=== PATIENT | female | born 1930 | race Caucasian/White ===

== ENCOUNTER → 2016-04-12 | Outpatient (CLI) | payer OTHER | LOC: MMPC 10:00 | PROVIDERS: ATTEND Podiatrist Foot & Ankle Surgery | DX: M79.672 Pain in left foot (principal); M79.671 Pain in right foot; L84 Corns and callosities; M20.12 Hallux valgus (acquired), left foot; E11.40 Type 2 diabetes mellitus with diabetic neuropathy, unspecified; D16.31 Benign neoplasm of short bones of right lower limb; D16.32 Benign neoplasm of short bones of left lower limb; M20.11 Hallux valgus (acquired), right foot | CPT/HCPCS: 11057 ×2; G0463 ==

== ENCOUNTER → 2016-05-10 | Outpatient (CLI) | payer OTHER | LOC: MMPC 10:00 | PROVIDERS: ATTEND Podiatrist Foot & Ankle Surgery | DX: M79.672 Pain in left foot (principal); M79.671 Pain in right foot; L84 Corns and callosities; M20.12 Hallux valgus (acquired), left foot; E11.40 Type 2 diabetes mellitus with diabetic neuropathy, unspecified; D16.31 Benign neoplasm of short bones of right lower limb; M24.574 Contracture, right foot; M20.41 Other hammer toe(s) (acquired), right foot; M20.11 Hallux valgus (acquired), right foot; M20.42 Other hammer toe(s) (acquired), left foot; D16.32 Benign neoplasm of short bones of left lower limb; M24.575 Contracture, left foot | CPT/HCPCS: 11056 ==

== ENCOUNTER → 2016-06-07 | Outpatient (CLI) | payer OTHER | LOC: MMPC 10:00 | PROVIDERS: ATTEND Podiatrist Foot & Ankle Surgery | DX: M79.671 Pain in right foot (principal); M79.672 Pain in left foot; L84 Corns and callosities; E11.40 Type 2 diabetes mellitus with diabetic neuropathy, unspecified | CPT/HCPCS: 11056 ×2; G0463 ==

== ENCOUNTER → 2016-07-05 | Outpatient (CLI) | payer OTHER | LOC: MMPC 10:00 | PROVIDERS: ATTEND Podiatrist Foot & Ankle Surgery | DX: M79.671 Pain in right foot (principal); M79.672 Pain in left foot; L84 Corns and callosities; E11.40 Type 2 diabetes mellitus with diabetic neuropathy, unspecified; M20.11 Hallux valgus (acquired), right foot; L60.3 Nail dystrophy; M20.41 Other hammer toe(s) (acquired), right foot; Q66.7 Congenital pes cavus; M20.12 Hallux valgus (acquired), left foot; M20.42 Other hammer toe(s) (acquired), left foot; I73.9 Peripheral vascular disease, unspecified | CPT/HCPCS: 11056 ×2; 11721 ×2; G0463 ==

== ENCOUNTER → 2016-08-02 | Outpatient (CLI) | payer OTHER | LOC: MMPC 10:00 | PROVIDERS: ATTEND Podiatrist Foot & Ankle Surgery | DX: M79.671 Pain in right foot (principal); M79.672 Pain in left foot; L84 Corns and callosities; L97.512 Non-pressure chronic ulcer of other part of right foot with fat layer exposed; E11.40 Type 2 diabetes mellitus with diabetic neuropathy, unspecified; M20.41 Other hammer toe(s) (acquired), right foot; L60.3 Nail dystrophy; M24.571 Contracture, right ankle; M20.42 Other hammer toe(s) (acquired), left foot; M24.572 Contracture, left ankle | CPT/HCPCS: 11056 ×2; G0463 ==

== ENCOUNTER → 2016-09-13 | Outpatient (CLI) | payer OTHER ==
--- NOTE | 2016-09-13 10:22 | DI ---
XR FOOT COMPLETE MIN 3VW WB,09/13/2016 9:08 AM: Clinical History: Ulcer of the right second toe. Previous Exam: September 22, 2015 Findings: 3 views of the right foot are obtained, and demonstrate some irregular soft tissue of the distal seco nd toe. There is irregularity of the distal second tuft. There is soft tissue swelling as well. There is diffuse osteopenia. Degenerative changes are noted of the tarsometatarsal joints. Impression: 1. Soft tissue irregularity of the distal second digit as well as irregularity of the distal tuft of the second digit. This is worrisome for involvement of the distal second tuft. 2. Degenerative changes of the tarsometatarsal joints.
== END ==
LOC: MOB RAD 09:09
PROVIDERS: ATTEND Podiatrist Foot & Ankle Surgery
DX: E11.621 Type 2 diabetes mellitus with foot ulcer (principal); E11.40 Type 2 diabetes mellitus with diabetic neuropathy, unspecified; I73.9 Peripheral vascular disease, unspecified; L84 Corns and callosities; M20.41 Other hammer toe(s) (acquired), right foot; M20.42 Other hammer toe(s) (acquired), left foot; M79.671 Pain in right foot; L03.031 Cellulitis of right toe; L97.512 Non-pressure chronic ulcer of other part of right foot with fat layer exposed
CPT/HCPCS: 73630; G0463

== ENCOUNTER 2016-09-14 06:06 | Day surgery (SDC) | payer OTHER ==
[~2016-09-14 06:06] MED LIST: Clindamycin 900mg (Premix) 50 ML IV ONE; LIDOCAINE W/ SODIUM BICARB 0.5 ML SYR ONE; Lactated Ringers 1,000 ML PRIMARY IV ONE
[2016-09-14] MEDS ORDERED: LIDOCAINE 2% 20 MG/ML - 20 ML VIAL ONE (07:02)
[2016-09-14] MEDS ORDERED: BUPivacaine Inj 0.5% PF (5mg/ml) 10ml vial ONE (07:02)
[2016-09-14] MEDS ORDERED: NORMAL SALINE 10 ML SYRINGE FLUSH IVP PRN (08:15)
--- NOTE | 2016-09-14 08:27 | GEN.OPNOTE ---
Operative Report Surgeon: Dani Umana DPM Anesthesia Type: Local, MAC Anesthesia Provider: Cachorro Tamayo CRNA Surgery Date: 09/14/16 Preoperative Diagnosis: 1. Right 2nd toe ulceration of tip. 2. Right 2nd toe distal phalanx in mallet toe position. 3. Right 2nd toe pain. Postoperative Diagnosis: 1. Right 2nd toe ulceration of tip. 2. Right 2nd toe distal phalanx in mallet toe position. 3. Right 2nd toe pain. Procedure: 1. Right 2nd toe distal phalangectomy. Estimated Blood Loss (mL): 3 (a Silvio drain was applied to the base of the second toe for approximately 32 minutes.) Fluids: 900 mL lactated Ringer's. Clindamycin 900mg IV. Complications: None Findings at Surgery: Ulcer of the tip of the toe. Some necrosis of fat deep to the ulceration. Indications for the Procedure: Right 2nd toe pain. Description of Procedure: The patient was brought to the operating room and placed in the supine position. Monitored anesthesia care was provided. The foot was prepped and draped in the usual sterile fashion. A timeout was performed. A digital injection was performed with half percent Marcaine +1% lidocaine plain. The toe was then extended with a [place] drain which was then left on the base the toe as a digital tourniquet. The ulcer is distal the tip and slightly plantarward. It was determined the best excision was a football Excision including the nail and nail matrix in a dorsal plantar direction. This ellipse was carried deep to the distal phalanx. And the distal phalanx was carefully excised and removed at the distal interphalangeal joint. The ulcer distal phalanx was then cemented in toto to pathology. Next culture and sensitivities were taken deep. The wound was then copiously irrigated. Some necrosis of the plantar toe pad fat was noted and this was excised as well. The middle phalanx head was noted to be prominent with the condyles and so a bone rongeur was reduced remove the condyles and cartilage. Wound was irrigated. The wound was then modified to remove redundant tissues. The goal was To maintain as much of the plantar toe pad as possible for further protection. The extensor to flexor tendons were then sutured with 4-0 Vicryl. And then the flap was closed with 3- 0 nylon. The [place]te drain was then removed from the base the toe. Gentle compression was used and the toe was given 5 minutes or so until the bleeding was well-controlled. It was noted the patient did have good capillary return to the distal toe. A dressing was applied utilizing Xeroform, gauze, Coban for both a an the foot to hold the dressing on the toe. Ordella was then returned to recovery.
[2016-09-14] MEDS ORDERED: KETOROLAC 30 MG/1 ML VIAL ONE (08:56)
--- NOTE | 2016-09-14 09:08 | DI ---
XR FOOT COMPLETE MIN 3VW,09/14/2016 8:15 AM: Clinical History: Right second toe ulcer Previous Exam: September 13, 2016 Findings: 3 views of the right foot are obtained, and demonstrate diffuse osteopenia. There are degenerative ch anges noted involving the tarsometatarsal joints. There is enthesopathy noted at the insertion of the plantar fascia. Postsurgical changes are seen consistent with an amputation of the distal second phalanx. There is so me soft tissue swelling. Impression: Postsurgical changes consistent with right second distal phalangeal amputation.
[2016-09-14 13:24] VITALS: TEMP 97.7
[2016-09-14 13:36] VITALS: RESP 16
== END 2016-09-14 09:13 | disposition home or self-care (01) ==
LOC: SDSC 06:06
PROVIDERS: ATTEND Podiatrist Foot & Ankle Surgery
DX: L97.519 Non-pressure chronic ulcer of other part of right foot with unspecified severity (principal); M79.671 Pain in right foot; E11.40 Type 2 diabetes mellitus with diabetic neuropathy, unspecified; I73.9 Peripheral vascular disease, unspecified
CPT/HCPCS: 28825; 73630; 87070; 87075; 87205; J1885; J2704; J2001; J3490; J7120

== ENCOUNTER → 2016-09-20 | Outpatient (CLI) | payer OTHER | LOC: MMPC 10:00 | PROVIDERS: ATTEND Podiatrist Foot & Ankle Surgery | DX: Z89.421 Acquired absence of other right toe(s) (principal) ==

== ENCOUNTER → 2016-10-04 | Outpatient (CLI) | payer OTHER | LOC: MMPC 10:00 | PROVIDERS: ATTEND Podiatrist Foot & Ankle Surgery | DX: M79.672 Pain in left foot (principal); R26.2 Difficulty in walking, not elsewhere classified; L84 Corns and callosities; M21.272 Flexion deformity, left ankle and toes; E11.9 Type 2 diabetes mellitus without complications | CPT/HCPCS: 11055 ×2; G0463 ==

== ENCOUNTER → 2016-10-18 | Outpatient (CLI) | payer OTHER | LOC: MMPC 10:00 | PROVIDERS: ATTEND Podiatrist Foot & Ankle Surgery | DX: Z89.421 Acquired absence of other right toe(s) (principal) ==

== ENCOUNTER 2017-01-26 17:51 | Observation (INO) ==
[2017-01-26] MEDS ORDERED: NORMAL SALINE 10 ML SYRINGE FLUSH IVP PRN ×2 (18:22→21:12)
[2017-01-26] MEDS ORDERED: Sodium Chloride 0.9% 1,000 ML PRIMARY IV ONE (18:22)
[2017-01-26 18:32] LABS: BASOPHILS # (AUTO) 0.01 10*3/UL; BASOPHILS % (AUTO) 0.2 % (0-1); EOSINOPHILS # (AUTO) 0.19 10*3/UL; EOSINOPHILS % (AUTO) 4.1 % (0-8); Hematocrit [HCT] 40.8 % (37.0-47.0); Hemoglobin [HGB] 13.5 g/dL (12.0-16.0); LYMPHOCYTES # (AUTO) 1.06 10*3/uL; MEAN CORPUSCULAR HEMOGLOBIN 30.5 PG (27-31); MEAN CORPUSCULAR HGB CONC 33.1 g/dL (33-37); MEAN CORPUSCULAR VOLUME 92.1 FL (81-99); MEAN PLATELET VOLUME 10.4 FL (7.4-12.2); MONOCYTES # (AUTO) 0.49 10*3/UL (0.3-0.8); MONOCYTES % (AUTO) 10.6 % (5-15); NEUTROPHILS # (AUTO) 2.87 10*3/UL; RED BLOOD COUNT 4.43 10^6/uL (4.20-5.40)
[2017-01-26 18:33] LABS: PLATELET MORPHOLOGY COMMENT NORMAL MORPHOLOGY (NORM); RBC MORPHOLOGY COMMENT NORMAL MORPHOLOGY (NORM); WBC MORPHOLOGY COMMENT NORMAL MORPHOLOGY (NORM)
[2017-01-26 18:39] LABS: BLOOD UREA NITROGEN 21 mg/dL (7-22); SERUM ALBUMIN 4.3 g/dL (3.5-4.8)
[2017-01-26 18:48] LABS: BILIRUBIN,URINE NEGATIVE (NEG); CLARITY,URINE CLEAR (CLEAR); COLOR,URINE YELLOW; GLUCOSE, URINE (UA) NEGATIVE (NEG); NITRATE,URINE NEGATIVE (NEG); OCCULT BLOOD,URINE LARGE (NEG); PROTEIN,URINE NEGATIVE (NEG); UROBILINOGEN,URINE 0.2 mg/dL (0.2)
[2017-01-26 18:49] LABS: VENOUS PH 7.36 (7.32-7.42)
[2017-01-26 18:55] LABS: URINE SAMPLE TYPE CATH SPECIMEN
[2017-01-26 18:56] LABS: BACTERIA,URINE RARE; SQUAMOUS EPITHELIAL CELL,UR RARE
--- NOTE | 2017-01-26 20:05 | DI ---
EXAM: CT Head Without Intravenous Contrast CLINICAL HISTORY: Dizziness and headache. TECHNIQUE: Axial computed tomography images of the head/brain without intravenous contrast. COMPARISON: No relevant prior studies available. FINDINGS: Brain: No acute intracranial hemorrhage. No evidence of acute territorial infarct. No mass effect or midline shift. Mild atrophy is present, appropriate for age. Scattered white matter hypoattenuation is nonspecific although probably related to chronic small vessel ischemic disease. Ventricles: Unremarkable for age. No ventriculomegaly. Bones/joints: Unremarkable. No acute fracture. Soft tissues: Unremarkable. Sinuses: Unremarkable as visualized. No acute sinusitis. Mastoid air cells: Unremarkable as visualized. No mastoid effusion. IMPRESSION: 1. No evidence of acute territorial infarct, acute intracranial hemorrhage, or other acute intracranial abnormality. 2. Atrophy and chronic small vessel ischemic disease. 3. Paranasal sinuses and mastoid air cells are clear.
--- NOTE | 2017-01-26 20:09 | DI ---
EXAM: XR Chest, 2 Views CLINICAL HISTORY: Confusion, cough. TECHNIQUE: Frontal and lateral views of the chest. COMPARISON: CXR dated 09/22/2015. FINDINGS: Lungs: Hyperinflated lungs suggestive of COPD, stable. No focal consolidation or evidence of pulmonary edema. Pleural space: No significant pleural effusion or pneumothorax. Heart: Mildly prominent cardiac silhouette size, stable. Stable cardiac pacemaker. Mediastinum: No mediastinal widening. Atherosclerosis at the aortic arch. Bones/joints: Osseous degenerative changes. IMPRESSION: 1. No radiographic evidence of acute cardiopulmonary process. 2. Stable cardiac silhouette size and cardiac pacemaker.
--- NOTE | 2017-01-26 20:42 | PDOC ---
General Adult HPI - General Chief Complaint: Syncope / Near-Syncope Stated Complaint: dizzy Date Seen by Provider: 01/26/17 Time Seen by Provider: 17:55 Source: POSITIVE: Patient, Other (Son, [id number], daughter) Exam Limitations: POSITIVE: Clinical condition Nurse's Notes Reviewed & Considered: Yes - History of Present Illness Initial Comment: The patient is an 86-year-old female who is brought to the emergency room by her son. Patient lives alone at the [facility]. The patient's daughter-in- law or son checks on the patient twice a day. According to son and daughter-in- law, the patient seemed in her normal state of health when they checked on her this morning. When they checked on the patient around 1700, however, the patient was "very weak ". She reportedly had an unsteady gait" almost felt ". The patient complained of being "dizzy ". Patient has had no known falls or trauma. No known fevers. Son reports that the patient has had some increased "coughing and hacking "lately. The son does report that the patient has had progressive "memory problems "over the past several months. Patient has a history of type II diabetes mellitus. 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 Patient is also had an aortic aneurysm repair. Status post hysterectomy and appendectomy. Have you received a tetanus shot in the past 10 years?: Yes Body Location Affected: REPORTS: Other ("Weakness, confusion, dizziness ") Duration: <24 hours Severity: Moderate Quality: REPORTS: Other (Patient states she has had some headaches recently, but none now) Context: REPORTS: Coughing, Near Fall Modifying Factors: improves with: Nothing, Walking (Gait very unsteady according to son) Similar Symptoms Previously: No Recent Care Received: REPORTS: Denies Any Prior Injuries Related to Current Complaint?: No - Patient Home Medications Home Medications: Home Medications Latanoprost [Xalatan] 1 drp OP DAILY #3 bottle 10/15/13 Ibuprofen [Motrin Ib] 200 mg PO Q4-6H #30 tab 08/23/14 Clotrim Antifungal 1 applic TOPICAL BID #1 tube 03/07/15 Urea 236.6 ml TOPICAL QD #1 bottle 01/05/16 Amlodipine Besylate 5 mg PO DAILY #90 tab 07/30/16 Carvedilol 6.25 mg PO BID #180 tab 07/30/16 Glipizide [Glipizide ER] 1 tab PO BID #180 tab 07/30/16 Potassium Chloride [Klor-Con 10] 10 meq PO DAILY #90 tab 07/30/16 Atorvastatin Calcium [Lipitor] 20 mg PO DAILY #90 tab 10/29/16 Quinapril HCl 20 mg PO DAILY #90 tab 10/29/16 - Patient Allergies Allergies/Adverse Reactions: Allergies 3 Allergy/AdvReac Type Severity Reaction Status Date / Time Penicillins Allergy Intermediate rash on Verified 12/27/16 11:35 legs aspirin Allergy VOMITING Verified 12/27/16 11:35 captopril AdvReac Intermediate diarrhea Verified 12/27/16 11:35 hydrochlorothiazide AdvReac Intermediate diarrhea Verified 12/27/16 11:35 indapamide AdvReac Intermediate feel Verified 12/27/16 11:35 terrible hydrocodone AdvReac NOT Verified 12/27/16 11:35 APPLICABLE Past Medical History - heen HEENT History: Glaucoma, Dental Disorders, Dentures/Partials Cardiovascular History: Hypertension, Pacemaker, Aneurysm, Other (please comment ) Additional Cardiovasular History: had aortic aneurysm repair, pacemaker Respiratory History: Denies History Gastrointestinal History: Irritable Bowel Syndrome, Peptic Ulcer Disease Additional Gastrointestinal History: Appendectomy Genitourinary History: Denies History Endocrine History: Type 2 Diabetes (oral) Musculoskeletal History: Other (please comment) Prosthesis or Implant: No Additional Musculoskeletal History: CHRONIC BILAT FOOT PAIN, neuropathy in legs/ feet Neurological History: Dementia Blood Disorders: Denies History Psychiatric History: Denies History History of Sexually Transmitted Diseases: No Female Reproductive History: Hysterectomy Cancer History: Skin Cancer Treatment / Date(s) of Treatment: FACE In Past Year Been Physically Harmed or Verbally Threatened: No History of MDRO: No History of Other Communicable Diseases: No Tobacco Use: Never Smoker Alcohol Use: None In the Past 12 Months, Have Used or Abuse Any Substance: None Previous Surgical History: Yes Type / Date of Surgery: AORTIC ANEURYSM REPAIR 8 YRS AGO, CATARACTS, HYSTERECTOMY, APPENDECTOMY/ PACEMAKER/TONSILS/LEFT 2ND TOE EXCISION Anesthesia Reactions: Yes (VERY SENSITIVE TO NARCOTICS/COULD NOT WAKE UP) Malignant Hyperthermia: No Significant Family History: Diabetes Past Medical History Reviewed: Reviewed - No Changes ROS - Limitations ROS Limitations: No Limitations Constitution: REPORTS: Weakness Cardiovascular: REPORTS: Denies Cardiac Symptoms Respiratory: REPORTS: Cough Non Productive Neurological: REPORTS: Confusion (More confused than normal), Dizziness, Weakness (Generalized weakness) Gastrointestinal: REPORTS: Denies GI Symptoms Endocrine: REPORTS: Denies Symptoms Musculoskeletal: REPORTS: Denies MS Symptoms Genitourinary: REPORTS: Denies Symptoms Eyes: REPORTS: Denies Symptoms ENT: REPORTS: Denies Symptoms Skin: REPORTS: Denies Skin Symptoms Lympathic: REPORTS: Denies Lympathic Symptoms Immunologic: POSITIVE: Denies Symptoms Psychiatric: POSITIVE: Confusion (Confusion to date, president) General Adult Exam - General Appearance General Appearance: POSITIVE: Cooperative, No Acute Distress, No Evidence of Trauma, Lethargic - HEENT HEENT: POSITIVE: Head Inspection Nml, Eyes Inspection Nml, Ears Inspection Nml, Nose Inspection Nml, Oral/Dental Inspect. Nml, Pharynx Inspect. Nml, PERRL, EOMI - Pupils Pupil Size: 4 mm: Bilateral (PERRLA) - Neck Neck: POSITIVE: Normal Inspection, Thyroid Normal - Respiratory Respiratory: POSITIVE: Chest Non-Tender, Rales (Rales right lung base which mostly clear with deep inspiration) - Cardiovascular Cardiovascular: POSITIVE: Regular Rate & Rhythm, No Murmur, No Gallop, PMI Normal Peripheral Pulses: Radial (R): 2+, Radial (L): 2+ - Abdomen Abdomen: Soft: (All Quadrants), Normal Bowel Sounds: (All Quadrants), Denies Tenderness: (All Quadrants), No Splenomegaly: (All Quadrants), No Hepatomegaly: (All Quadrants), No Guarding: (All Quadrants), No Rebound: (All Quadrants), No Palpable Pulse: (All Quadrants), No Palpabale Mass: (All Quadrants), No Distention: (All Quadrants), No Rigidity: (All Quadrants) - Back Back: POSITIVE: Normal Inspection - Skin Skin: POSITIVE: Normal Color, Warm, Dry, No Rash - Extremities Extremity: Non-Tender: (All Extremities), Normal ROM: (All Extremities), Normal Inspection: (All Extremities) - Neurological / Psychological Neurological: POSITIVE: Affect 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 NEGATIVE: Oriented X3 (Oriented to place. Not oriented to time or president) , Facial Droop, Speech Abnormality, Cognition Abnormality, Unsteady Gait (Gait not tested), Ataxic, Motor Loss Reflexes: Patellar (R): 2+, Patellar (L): 2+, Bicep (R): 2+, Bicep (L): 2+ General Adult Progress - Results Reviewed by me Xrays/CTs/US Reviewed by me: Yes Discussed with Radiologist: Yes Radiology Findings: CT scan head shows no acute changes per radiologist. Chest x-ray shows no evidence of acute cardiopulmonary processes; cardiac pacemaker identified. CBC and BMP: 01/26/17 18:27 01/26/17 18:27 EKG Interpreted/Reviewed By Me:: Yes (normal sinus rhythm) EKG Interpretation:: POSITIVE: Normal Sinus Rhythm, Normal Rate, Normal Intervals, Normal Filer, Normal QRS, Normal ST/T - Patient's Progress Pain Medication Addressed: POSITIVE: Not Applicable School/Work Release Addressed: POSITIVE: Not Applicable Re-Examine Time: 20:30 Re-Examine Comment: Patient has no nystagmus. Negative [place]-Hallpike maneuver. Patient hydrated with normal saline in the emergency room and given oxygen supplementation. Patient's mental condition seems to be somewhat improved on discharge. 2 blood cultures were drawn. Urinalysis, catheterized specimen, showed a few red blood cells. Cardiac enzymes are normal. Discussed disposition with the patient's son and daughter. Advised family that I'm not completely sure why the patient's condition has declined today. Patient is admitted by Dr. Zepeda, hospitalist, for further evaluation and treatment. Status: POSITIVE: Improved, Re-Examined - Consult Consult (If Yes, Name of Consulting MD & Time Called): Yes (Dr. Zepeda, hospitalist, 2030) Consulting MD will see pt:: POSITIVE: [facility] Admit Counseled: POSITIVE: Patient, Family, RE: Lab Results, RE: Radiology Results, RE : DX, RE: Need for F/U Patient Care Time - Estimated PCT Patient Care Time (In Minutes): 60 Vital Signs - Recent Vital Signs Vital Signs: Vital Signs (Last 8 hours) Temp Pulse Resp BP Pulse Ox 01/26/17 19:33 68 18 142/65 98 01/26/17 19:07 96.8 F 69 16 142/65 96 01/26/17 17:57 97 F 73 18 163/81 91 - VS Reviewed Vital Signs Reviewed: Yes Discharge Clinical Impression: Weakness generalized, Dizziness, Confusion Discharge Disposition: Admit to Observation Condition: Fair Follow Up With: [facility] [Primary Care Provider] - Date Decision to Admit to Inpatient: 01/26/17 Time Decision to Admit to Inpatient: 20:30
[2017-01-26] MEDS ORDERED: DOCUSATE 100 MG CAPSULE PO PRN (21:12)
[2017-01-26] MEDS ORDERED: ACETAMINOPHEN 325 MG TABLET PO PRN (21:12)
[2017-01-26] MEDS ORDERED: LIDOCAINE W/ SODIUM BICARB 0.5 ML SYR SUBD PRN (21:12)
[2017-01-26] MEDS ORDERED: CALCIUM CARBONATE 500 MG (TUMS) CHEWABLE TABLET PO PRN (21:12)
[2017-01-26] MEDS ORDERED: ONDANSETRON 4 MG/2 ML VIAL IVP PRN (21:12)
--- NOTE | 2017-01-26 21:29 | PDOC ---
HPI - History of Present Illness History of Present Illness: This very nice 86-year-old female who lives alone in the apartments the sons checks on her twice a day and helps her out this morning she was in her normal state of health when they checked her room prior o'clock she appeared very weak and unsteady dizzy with diarrhea they do say that the diarrhea started the 1 month ago but now it's gotten a little worse. Patient is awake oriented follows commands she does have underlying dementia 2 years ago had a positive stress test following the patient declined catheterization and is on medical therapy. Labs did not reveal any acute abnormality chest x-ray and CT scan of the head no acute findings. Patient is very unsteady unable to ambulate on her own according to the son Past Medical History Medical History: 1. Hypertension2. Diabetes3. History of pacemaker insertion about 3 years ago. Surgical History: She had some kind of abdominal surgery she doesn't know and what it is done in [place]. Family History: Reviewed an Not Pertinent Tobacco Use: Never Smoker In the Past 12 Months, Have Used or Abuse Any of the Following Substance: None Medication / Allergies Home Medications: Home Medications Medication Instructions Recorded Confirmed Type Latanoprost [Xalatan] 1 drp OP DAILY #3 bottle 10/15/13 01/26/17 History Ibuprofen [Motrin Ib] 200 mg PO Q4-6H #30 tab 08/23/14 01/26/17 History Clotrim Antifungal 1 applic TOPICAL BID #1 tube 03/07/15 01/26/17 Clinic Urea 236.6 ml TOPICAL QD #1 bottle 01/05/16 01/26/17 Rx Amlodipine Besylate 5 mg PO DAILY #90 tab 07/30/16 01/26/17 Rx Carvedilol 6.25 mg PO BID #180 tab 07/30/16 01/26/17 Rx Glipizide [Glipizide ER] 1 tab PO BID #180 tab 07/30/16 01/26/17 Rx Potassium Chloride [Klor-Con 10] 10 meq PO DAILY #90 tab 07/30/16 01/26/17 Rx Atorvastatin Calcium [Lipitor] 20 mg PO DAILY #90 tab 10/29/16 01/26/17 Rx Quinapril HCl 20 mg PO DAILY #90 tab 10/29/16 01/26/17 Rx Allergies/Adverse Reactions: Allergies 3 Allergy/AdvReac Type Severity Reaction Status Date / Time Penicillins Allergy Intermediate rash on Verified 12/27/16 11:35 legs aspirin Allergy VOMITING Verified 12/27/16 11:35 captopril AdvReac Intermediate diarrhea Verified 12/27/16 11:35 hydrochlorothiazide AdvReac Intermediate diarrhea Verified 12/27/16 11:35 indapamide AdvReac Intermediate feel Verified 12/27/16 11:35 terrible hydrocodone AdvReac NOT Verified 12/27/16 11:35 APPLICABLE Review of Systems - Review of Systems All Systems: Reviewed & No Additional Complaints Except as Stated - Constitutional Constitutional: REPORTS: General Health Fair - Integumentary Integumentary: DENIES: Negative System Review, Rash, Superficial Wound, Laceration, Puncture Wound, Foreign Body, Itching, Dryness, Ulcers, Color Changes, Moles, Hair Loss, Hirsutism, Other, See HPI - Eye Exam Eye Exam: DENIES: Negative System Review, Acuity Good, Acuity Fair, Acuity Poor , Glasses/Contacts, Vision Loss, Blurring, Redness, Diplopia, Catarats, Other, See HPI - Mouth/Throat Mouth/Throat Exam: DENIES: Negative System Review, Dental Problems, Oral Ulcers , Sore Throat, Hoarseness, Dysphagia, Dental Pain, Other, See HPI - Respiratory Respiratory: DENIES: Negative System Review, Cough, Sputum, Dyspnea At Rest, Dyspnea with Exertion, Pleuritic Pain, Hemoptysis, Wheezing, Other, See HPI - Cardiovascular Cardiovascular: DENIES: Negative System Review, Chest Pain, Edema, Syncope, Palpitations, Orthopnea, Paroxysmal Nocturnal Dyspnea, Other, See HPI - Gastrointestinal Gastrointestinal / Abdominal: REPORTS: Diarrhea - Genitourinary Genitourinary: DENIES: Negative System Review, Pain, Burning, Hematuria, Incontinence, Urgency, Hesitant Stream, Decreased Stream, Nocutria, Discharge, Sexual Dysfunction, Other, See HPI - Musculoskeletal Musculoskeletal: DENIES: Negative System Review, Back Pain, Neck Pain, Joint Swelling, Calf Pain, Muscle Pain, Cramping, Joint Pain - Hands, Joint Pain - Elbows, Joint Pain - Shoulders, Joint Pain - Hips, Joint Pain - Knees, Joint Pain - Feet, AM Stiffness, Other, See HPI - Neurological Neurologic: REPORTS: Dizziness, Confusion Exam - General General Appearance: No Acute Distress, Cooperative - Head Head Exam: Normal Inspection, Normocephalic, Atraumatic - Eye Eye Exam: POSITIVE: Normal Appearance, PERRL, EOMI, No Scleral Icterus - ENT ENT Exam: POSITIVE: Normal Exam, Normal External Ear Exam, Normal Oropharynx, TM 's Normal Bilaterally, Mucous Membranes Moist - Neck Neck Exam: Normal Inspection, Full ROM, No Tenderness, No Lymphadenopathy, No Thyromegaly, JVP is not Raised - Respiratory Respiratory Exam: POSITIVE: Clear to Auscultation - Bilaterally, Breathing Non Labored, Normal To Percussion, Normal to Percussion and Palpation - Cardiovascular Cardiovascular Exam: POSITIVE: RRR, No Murmur, No Clicks, No Gallops, No Rubs, PMI Non-Displaced - GI/Abdominal GI/Abdominal Exam: POSITIVE: Normal Bowel Sounds, Non Tender, Non Distended, Soft, No Masses, No Hepatomegaly, No Splenomegaly, No Organomegaly - Rectal Rectal Exam: POSITIVE: Deferred - External Exam: POSITIVE: Deferred Exam: POSITIVE: Deferred - Extremities Extremities Exam: POSITIVE: No Clubbing Present, No Edema Present, No Cyanosis Present - Neurological Neurological Exam: POSITIVE: Alert, CN II-XII Intact, No Facial Droop, Speech Intact / Clear, Moves All Extremities Equally - Psychiatric Psychiatric Exam: POSITIVE: Normal Mood Results - Labs CBC and BMP: 01/26/17 18:27 01/26/17 18:27 Assessment and Plan - Patient Problems (1) Diarrhea Current Visit: Yes Status: Acute Code(s): R19.7 - Diarrhea, unspecified (2) Dizziness Current Visit: Yes Status: Acute Code(s): R42 - Dizziness and giddiness (3) Weakness generalized Current Visit: Yes Status: Acute Code(s): R53.1 - Weakness (4) Altered mental status Current Visit: No Status: Acute Code(s): R41.82 - Altered mental status, unspecified (5) Diabetes mellitus Current Visit: No Status: Chronic Code(s): E11.9 - Type 2 diabetes mellitus without complications Qualifiers: (6) Hypertension Current Visit: No Status: Chronic Code(s): I10 - Essential (primary) hypertension Qualifiers: - Assessment / Plan Additional Assessment/Plan Details: Is a very nice 86-year-old female with past medical history significant for diabetes has been in alone she has been doing well since this morning but now has sudden onset of generalized weakness was unable to stand and ambulate on her own she does have diarrhea and did have 2-3 episodes yesterday but this has been chronic over the last month I believe the her weakness and dizziness is multifactorial secondary to dehydration secondary to the diarrhea on abdominal exam she does not have any pain I will send stools for parasites Cryptosporidium and Giardia neurovirus C. difficile also will order CT scan of the abdomen and pelvis CT of the head and chest x-ray are negative UA is negative we will also check a magnesium hydrate the patient with the banana bags with potassium discuss case with all family members and nursing
[2017-01-26] MEDS ORDERED: IBUPROFEN 200 MG PO SCH (21:30)
[2017-01-26] MEDS ORDERED: Sodium Chloride 0.9% 1,000 ML, Magnesium Sulfate 2gm (Premix) 50 ML with Multivitamin I... IV SCH ×5 (21:30)
[2017-01-26] MEDS ORDERED: Pneumococcal Vacc 13 Syringe 0.5 ML DISP.SYRIN IM ONE (22:06)
[2017-01-26] MEDS ORDERED: Influenza 17-18 Vaccine (6mo+) Quad 60mcg/0.5ml PF IM ONE (22:06)
[2017-01-26] MEDS ORDERED: MVI, ADULT NO.1 WITH VIT K 10 ML VIAL IV ONE (23:04)
--- NOTE | 2017-01-27 00:06 | DI ---
EXAM: CT Abdomen and Pelvis With Intravenous Contrast CLINICAL HISTORY: Acute diarrhea. TECHNIQUE: Axial computed tomography images of the abdomen and pelvis with intravenous contrast. Coronal and sagittal reformatted images were created and reviewed. CONTRAST: 65 mL of Isovue 300 administered intravenously. COMPARISON: CT dated 06/26/2008. FINDINGS: Lower thorax: Cardiac device leads noted. No acute findings in the visualized lower thorax. ABDOMEN: Liver: Unremarkable. No mass. Gallbladder and bile ducts: Cholelithiasis within collapsed gallbladder. No CT findings to suggest acute cholecystitis. Mildly prominent common bile duct. Pancreas: Minimally prominent pancreatic duct. No mass. No adjacent inflammatory changes. Spleen: Unremarkable. No splenomegaly. Adrenals: Unremarkable. No mass. Kidneys and ureters: Small nonobstructive right lower pole renal calculus. Subcentimeter right renal low-attenuation lesion, probably small cyst. No hydronephrosis or ureteral calculus. No solid mass. Stomach and bowel: Colonic diverticula without evidence of acute diverticulitis. No evidence of bowel obstruction. No significant bowel wall thickening. Few scattered air-fluid levels in small bowel. Appendix: Appendix not seen. PELVIS: Bladder: Bladder is mildly distended. No bladder wall thickening or calculi. Reproductive: Uterus not visualized consistent with hysterectomy. Ovaries not visualized. ABDOMEN and PELVIS: Intraperitoneal space: Unremarkable. No free air. No significant fluid collection. Bones/joints: Osseous degenerative changes and osteopenia. No acute fracture. No dislocation. Soft tissues: No acute abnormality. Vasculature: Interval repair of previously visualized abdominal aortic aneurysm. Atherosclerotic vascular disease. No residual or recurrent aneurysm. Lymph nodes: No enlarged lymph nodes. IMPRESSION: 1. Colonic diverticula without evidence of acute diverticulitis. No evidence of bowel obstruction or significant bowel wall thickening. Few scattered air-fluid levels within small bowel are nonspecific although mild ileus or enteritis cannot be excluded in the proper critical setting. Correlate clinically. 2. Cholelithiasis within collapsed gallbladder. No CT findings to suggest acute cholecystitis. 3. Interval repair of previously visualized abdominal aortic aneurysm. Atherosclerotic vascular disease is present. No residual or recurrent aneurysm. 4. Small nonobstructive right lower pole renal calculus. No hydronephrosis or ureteral calculus. 5. Osseous degenerative changes and osteopenia. No acute fracture.
[2017-01-27] MEDS ORDERED: UREA TOPICAL SCH (09:00)
[2017-01-27] MEDS ORDERED: Potassium Chloride Tab 10 MEQ TAB PO SCH (09:00)
[2017-01-27] MEDS ORDERED: AmLODIPine Tab 5 MG TABLET PO SCH (09:00)
[2017-01-27] MEDS ORDERED: QUINAPRIL 20 MG TABLET PO SCH (09:00)
[2017-01-27] MEDS ORDERED: CARVEDILOL 6.25 MG TABLET PO SCH (09:00)
[2017-01-27] MEDS ORDERED: [UNRECOGNIZED DRUG - OTHER] TOPICAL SCH (09:00)
[2017-01-27] MEDS ORDERED: Influenza 17-18 Vaccine (6mo+) Quad 60mcg/0.5ml PF IM ONE (09:37)
[2017-01-27] MEDS ORDERED: Pneumococcal Vacc 13 Syringe 0.5 ML DISP.SYRIN IM ONE (09:38)
--- NOTE | 2017-01-27 12:58 | DCSUMMARY ---
Hospitalization Summary Hospital Course: Final Discharge Diagnosis: Current Visit Problems Problem Status Onset Code Weakness generalized Acute R53.1 Dizziness Acute R42 Confusion Acute R41.0 Diarrhea Acute R19.7 Diagnostic Data, Laboratory Data, and Procedures of Signifigance: Laboratory Results 01/26/17 01/26/17 01/26/17 Range/Units 18:27 18:27 18:27 WBC 4.63 L (4.8-10.8) 10^3/uL RBC 4.43 (4.20-5.40) 10^6/uL Hgb 13.5 (12.0-16.0) g/dL Hct 40.8 (37.0-47.0) % MCV 92.1 (81-99) FL MCH 30.5 (27-31) PG MCHC 33.1 (33-37) g/dL RDW Std Deviation 44.0 (39-50) fL RDW Coeff of Christy 13.3 (11.5-14.5) % Plt Count 107 L (140-350) 10*3/uL MPV 10.4 (7.4-12.2) FL Immature Gran % (Auto) 0.2 (0-5) % Neut % (Auto) 62.0 (50-80) % Lymph % (Auto) 22.9 (10-50) % Alfalfa % (Auto) 10.6 (5-15) % Eos % (Auto) 4.1 (0-8) % Baso % (Auto) 0.2 (0-1) % Immature Gran # (Auto) 0.01 10*3/UL Neut # (Auto) 2.87 10*3/UL Lymph # (Auto) 1.06 10*3/uL Alfalfa # (Auto) 0.49 (0.3-0.8) 10*3/UL Eos # (Auto) 0.19 10*3/UL Baso # (Auto) 0.01 10*3/UL WBC Morphology Comment Normal morphology (NORM) Plt Morphology Comment Normal morphology (NORM) RBC Morph Comment Normal morphology (NORM) VBG pH (7.32-7.42) VBG pCO2 (45-55) mmHg VBG HCO3 (22-26) mmol/L VBG Base Excess (-2-2) MMOL/L Sodium 140 (135-145) meq/L Potassium 3.9 (3.8-5.2) meq/L Chloride 103 (98-112) meq/L Carbon Dioxide 24 (23-33) meq/L Anion Gap 13 (5-20) BUN 21 (7-22) mg/dL Creatinine 0.6 (0.50-1.20) mg/dL BUN/Creatinine Ratio 35.00 H (6-20) Glucose 171 H (78-110) mg/dL Calculated Osmolality 296.0 H (267-292) mOsm/kg Lactic Acid (0.70-2.10) MMOL/L Calcium 9.5 (8.7-10.7) mg/dL Magnesium (1.6-2.4) mg/dL Total Bilirubin 0.7 (0.3-1.2) mg/dL AST 42 H (8-39) IU/L ALT 33 (9-52) IU/L Alkaline Phosphatase 112 (38-126) IU/L Total Creatine Kinase (30-136) IU/L Troponin I < 0.012 (< 0.040) ng/mL Total Protein 7.4 (6.1-8.0) g/dL Albumin 4.3 (3.5-4.8) g/dL Globulin 3.1 (2.50-4.10) g/dL Albumin/Globulin Ratio 1.30 (1.3-2.0) mg/g TSH (0.2700-4.2000) uIU/mL Free T4 (0.93-1.71) ng/dL Ur Collection Type Urine Color Urine Clarity (CLEAR) Urine pH (5.0-8.5) Ur Specific [place] (1.005-1.030) Urine Protein (NEG) mg/dl Urine Glucose (UA) (NEG) mg/dL Urine Ketones (NEG) Urine Occult Blood (NEG) Urine Nitrate (NEG) Urine Bilirubin (NEG) Urine Urobilinogen (0.2) mg/dL Ur Leukocyte Esterase (NEG) Urine RBC (NONE) /hpf Urine WBC (NONE) Ur Squamous Epith Cells (NONE) Ur Renal Epithelial Cell (NONE) Urine Crystals Urine Bacteria (NONE) Urine Casts Urine Mucus (NONE) Urine Trichomonas (NONE) Urine Yeast (NONE) 01/26/17 01/26/17 01/26/17 Range/Units 18:27 18:27 18:39 WBC (4.8-10.8) 10^3/uL RBC (4.20-5.40) 10^6/uL Hgb (12.0-16.0) g/dL Hct (37.0-47.0) % MCV (81-99) FL MCH (27-31) PG MCHC (33-37) g/dL RDW Std Deviation (39-50) fL RDW Coeff of Christy (11.5-14.5) % Plt Count (140-350) 10*3/uL MPV (7.4-12.2) FL Immature Gran % (Auto) (0-5) % Neut % (Auto) (50-80) % Lymph % (Auto) (10-50) % Alfalfa % (Auto) (5-15) % Eos % (Auto) (0-8) % Baso % (Auto) (0-1) % Immature Gran # (Auto) 10*3/UL Neut # (Auto) 10*3/UL Lymph # (Auto) 10*3/uL Alfalfa # (Auto) (0.3-0.8) 10*3/UL Eos # (Auto) 10*3/UL Baso # (Auto) 10*3/UL WBC Morphology Comment (NORM) Plt Morphology Comment (NORM) RBC Morph Comment (NORM) VBG pH (7.32-7.42) VBG pCO2 (45-55) mmHg VBG HCO3 (22-26) mmol/L VBG Base Excess (-2-2) MMOL/L Sodium (135-145) meq/L Potassium (3.8-5.2) meq/L Chloride (98-112) meq/L Carbon Dioxide (23-33) meq/L Anion Gap (5-20) BUN (7-22) mg/dL Creatinine (0.50-1.20) mg/dL BUN/Creatinine Ratio (6-20) Glucose (78-110) mg/dL Calculated Osmolality (267-292) mOsm/kg Lactic Acid 0.8 (0.70-2.10) MMOL/L Calcium (8.7-10.7) mg/dL Magnesium (1.6-2.4) mg/dL Total Bilirubin (0.3-1.2) mg/dL AST (8-39) IU/L ALT (9-52) IU/L Alkaline Phosphatase (38-126) IU/L Total Creatine Kinase (30-136) IU/L Troponin I (< 0.040) ng/mL Total Protein (6.1-8.0) g/dL Albumin (3.5-4.8) g/dL Globulin (2.50-4.10) g/dL Albumin/Globulin Ratio (1.3-2.0) mg/g TSH 4.23 H (0.2700-4.2000) uIU/mL Free T4 1.27 (0.93-1.71) ng/dL Ur Collection Type Cath specimen Urine Color Yellow Urine Clarity Clear (CLEAR) Urine pH 7.0 (5.0-8.5) Ur Specific [place] 1.015 (1.005-1.030) Urine Protein Negative (NEG) mg/dl Urine Glucose (UA) Negative (NEG) mg/dL Urine Ketones Negative (NEG) Urine Occult Blood Large (NEG) Urine Nitrate Negative (NEG) Urine Bilirubin Negative (NEG) Urine Urobilinogen 0.2 (0.2) mg/dL Ur Leukocyte Esterase Negative (NEG) Urine RBC 10-15 (NONE) /hpf Urine WBC 1-3 (NONE) Ur Squamous Epith Cells Rare (NONE) Ur Renal Epithelial Cell None (NONE) Urine Crystals None Urine Bacteria Rare (NONE) Urine Casts None Urine Mucus None (NONE) Urine Trichomonas None (NONE) Urine Yeast None (NONE) 01/26/17 01/26/17 01/27/17 Range/Units 18:43 18:43 05:55 WBC (4.8-10.8) 10^3/uL RBC (4.20-5.40) 10^6/uL Hgb (12.0-16.0) g/dL Hct (37.0-47.0) % MCV (81-99) FL MCH (27-31) PG MCHC (33-37) g/dL RDW Std Deviation (39-50) fL RDW Coeff of Christy (11.5-14.5) % Plt Count (140-350) 10*3/uL MPV (7.4-12.2) FL Immature Gran % (Auto) (0-5) % Neut % (Auto) (50-80) % Lymph % (Auto) (10-50) % Alfalfa % (Auto) (5-15) % Eos % (Auto) (0-8) % Baso % (Auto) (0-1) % Immature Gran # (Auto) 10*3/UL Neut # (Auto) 10*3/UL Lymph # (Auto) 10*3/uL Alfalfa # (Auto) (0.3-0.8) 10*3/UL Eos # (Auto) 10*3/UL Baso # (Auto) 10*3/UL WBC Morphology Comment (NORM) Plt Morphology Comment (NORM) RBC Morph Comment (NORM) VBG pH 7.36 (7.32-7.42) VBG pCO2 40 L (45-55) mmHg VBG HCO3 22 (22-26) mmol/L VBG Base Excess -3 L (-2-2) MMOL/L Sodium (135-145) meq/L Potassium (3.8-5.2) meq/L Chloride (98-112) meq/L Carbon Dioxide (23-33) meq/L Anion Gap (5-20) BUN (7-22) mg/dL Creatinine (0.50-1.20) mg/dL BUN/Creatinine Ratio (6-20) Glucose (78-110) mg/dL Calculated Osmolality (267-292) mOsm/kg Lactic Acid (0.70-2.10) MMOL/L Calcium (8.7-10.7) mg/dL Magnesium 2.7 H (1.6-2.4) mg/dL Total Bilirubin (0.3-1.2) mg/dL AST (8-39) IU/L ALT (9-52) IU/L Alkaline Phosphatase (38-126) IU/L Total Creatine Kinase 51 (30-136) IU/L Troponin I (< 0.040) ng/mL Total Protein (6.1-8.0) g/dL Albumin (3.5-4.8) g/dL Globulin (2.50-4.10) g/dL Albumin/Globulin Ratio (1.3-2.0) mg/g TSH (0.2700-4.2000) uIU/mL Free T4 (0.93-1.71) ng/dL Ur Collection Type Urine Color Urine Clarity (CLEAR) Urine pH (5.0-8.5) Ur Specific [place] (1.005-1.030) Urine Protein (NEG) mg/dl Urine Glucose (UA) (NEG) mg/dL Urine Ketones (NEG) Urine Occult Blood (NEG) Urine Nitrate (NEG) Urine Bilirubin (NEG) Urine Urobilinogen (0.2) mg/dL Ur Leukocyte Esterase (NEG) Urine RBC (NONE) /hpf Urine WBC (NONE) Ur Squamous Epith Cells (NONE) Ur Renal Epithelial Cell (NONE) Urine Crystals Urine Bacteria (NONE) Urine Casts Urine Mucus (NONE) Urine Trichomonas (NONE) Urine Yeast (NONE) Intake and Output (24hr x 4 totals) 01/25/17 01/26/17 01/27/17 01/28/17 12:59 12:59 11:59 11:59 Intake Total Output Total Balance Weight Obtain Weight Start: 01/26/17 21: 20 Freq: ADMIT Status: Active Protocol: Document 01/26/17 21:20 [id number] (Rec: 01/27/17 00:07 [id number]) Obtain Weight Start: 01/26/17 21: 49 Freq: QAM Status: Active Protocol: Document 01/27/17 07:00 [id number] (Rec: 01/27/17 08:53 [id number]) History and Physical pertinent to Admission: Course of Hospitalization: Is a very nice 86-year-old female for which the family brought in yesterday afternoon because they were stating that she was in her normal self and was a little dizzy blood work and CT scan of abdomen and pelvis did not reveal much other than cholelithiasis. The patient does not want any invasive interventions she did the have abnormal stress test 2 years ago and she is on medical therapy for. It. The family also stated that she had diarrhea patient was admitted to the hospital for rehydration her dizziness has disappeared her balance is stable she was evaluated by physical therapy patient is back to her baseline transfers very well as had breakfast and lunch she is awake alert and oriented and is back to her normal self physical therapy recommended she be discharged home since she is back at her baseline. I spill spoke to the nurse and both of her daughters are coming to pick her up after anglican. Spoke to nurse to see if they want to pursue evaluation with the general surgery for her gallstones she was given banana bag for hydration with vitamins On the date of discharge, the patient was examined: Gen.: No acute distress, alert, nontoxic Heart: Regular rate and rhythm, no murmurs, clicks, gallops, or rubs Lungs: Clear to auscultation bilaterally, breathing is nonlabored Abdomen/GI: Normal tones on auscultation, soft, nontender, nondistended Musculoskeletal/extremities: No clubbing, cyanosis, or edema Vitals reviewed and are listed below Vital Signs (24 hrs) Temp Pulse Resp BP Pulse Ox 01/27/17 07:13 97.6 F 72 16 150/82 97 01/27/17 06:07 94 01/27/17 04:43 97.0 F 82 12 143/83 97 01/26/17 23:43 73 12 174/87 100 01/26/17 22:00 16 01/26/17 21:49 97.1 F 73 12 156/73 92 01/26/17 19:33 68 18 142/65 98 01/26/17 19:07 96.8 F 69 16 142/65 96 01/26/17 17:57 97 F 73 18 163/81 91 Assessment and Plan: 1. As per discharge assessments above 2. Disposition: 3. Condition on discharge, stable and improved. 4. Diet: regular diet 5. Activities: resume normal activities 6. Follow-Up: 1. PCP 2. Dr. manriquez 7. Medications at the Time of Discharge: Home Medications Medication Instructions Recorded Confirmed Type Latanoprost [Xalatan] 1 drp OP DAILY #3 bottle 10/15/13 01/26/17 History Clotrim Antifungal 1 applic TOPICAL BID #1 tube 03/07/15 01/26/17 Clinic Amlodipine Besylate 5 mg PO DAILY #90 tab 07/30/16 01/26/17 Rx Carvedilol 6.25 mg PO BID #180 tab 07/30/16 01/26/17 Rx Glipizide [Glipizide ER] 1 tab PO BID #180 tab 07/30/16 01/26/17 Rx Potassium Chloride [Klor-Con 10] 10 meq PO DAILY #90 tab 07/30/16 01/26/17 Rx Atorvastatin Calcium [Lipitor] 20 mg PO DAILY #90 tab 10/29/16 01/26/17 Rx Quinapril HCl 20 mg PO DAILY #90 tab 10/29/16 01/26/17 Rx 3 Generic Name Dose Route Start Last Admin Trade Name Freq PRN Reason Stop Dose Admin Acetaminophen 650 mg 01/26/17 21:12 Tylenol PO Q6H PRN Pain or Fever Amlodipine Besylate 5 mg 01/27/17 09:00 01/27/17 09:47 Norvasc PO 5 mg DAILY [facility] Administration Atorvastatin Calcium 20 mg 01/27/17 21:00 Lipitor PO BEDTIME [facility] Calcium Carbonate 1 - 2 tab 01/26/17 21:12 Tums PO Q6H PRN Heartburn Carvedilol 6.25 mg 01/27/17 09:00 01/27/17 09:46 Coreg PO 6.25 mg BID [facility] Administration Docusate Sodium 100 mg 01/26/17 21:12 Colace PO BID PRN Constipation Glipizide 5 mg 01/27/17 09:00 01/27/17 09:47 Glucotrol Xl Tab PO 5 mg BID [facility] Administration Sodium Chloride 25 mls @ 200 mls/hr 01/26/17 21:12 Normal Saline 0.9% IV .Post Infusion PRN No Primary IV for Flush ONLY Multivitamins/Minerals 10 ml/ 1,061.2 mls @ 125 mls/hr 01/26/17 21:30 00:09 Thiamine HCl 100 mg/ Folic IV 01/29/17 06:00 125 mls/hr Acid 1 mg/ Sodium Chloride/ Q24H [facility] Administration Magnesium Sulfate Lidocaine HCl 0.5 ml 01/26/17 21:12 Lidocaine Buffered Inj SUBD ONCE PRN IV Starts Non-Formulary Medication 1 applic 01/27/17 09:00 01/27/17 09:54 Clotrim Antifungal TOPICAL Not Given BID [facility] Non-Formulary Medication 200 mg 01/26/17 21:30 01/27/17 09:55 Ibuprofen [Motrin Ib] PO Not Given Q4-6H [facility] Non-Formulary Medication 236.6 ml 01/27/17 09:00 01/27/17 09:55 Urea [Urea] TOPICAL Not Given DAILY [facility] Ondansetron HCl 4 mg 01/26/17 21:12 Zofran Inj IVP Q4H PRN NAUSEA / VOMITING Potassium Chloride 10 meq 01/27/17 09:00 01/27/17 09:46 Klor-Con PO 10 meq DAILY [facility] Administration Quinapril HCl 20 mg 01/27/17 09:00 01/27/17 09:46 Accupril PO 20 mg DAILY [facility] Administration Sodium Chloride 5 - 20 ml 01/26/17 18:22 Saline Flush IVP ONCE (ED) PRN Flush Sodium Chloride 5 - 20 ml 01/26/17 21:12 01/27/17 00:09 Saline Flush IVP 10 ml BID PRN Administration Flush 8. Time, care, counseling and coordination of care for this discharge is greater than 30 minutes. Exam - Vitals Vital Signs: Vital Signs Temperature 97.6 F Temperature Source Temporal Artery Scan Pulse Rate [Pulse Oximeter] 72 Respiratory Rate 16 Blood Pressure [Left Arm] 150/82 Pulse Ox 97 Oxygen Flow Rate 2 Oxygen Delivery Method Room Air Height 5 ft Weight 103 lb 3.2 oz Patient Problems - Patient Problem List (1) Diarrhea Current Visit: Yes Status: Acute Code(s): R19.7 - Diarrhea, unspecified Category: Medical (2) Dizziness Current Visit: Yes Status: Acute Code(s): R42 - Dizziness and giddiness Category: Medical (3) Weakness generalized Current Visit: Yes Status: Acute Code(s): R53.1 - Weakness Category: Medical (4) Altered mental status Current Visit: No Status: Acute Comment: Likely related to dementia Code(s ): R41.82 - Altered mental status, unspecified Category: Medical (5) Diabetes mellitus Current Visit: No Status: Chronic Comment: Continue current meds. Code(s) : E11.9 - Type 2 diabetes mellitus without complications Qualifiers: Category: Medical (6) Hypertension Current Visit: No Status: Chronic Code(s): I10 - Essential (primary) hypertension Qualifiers: Category: Medical
--- NOTE | 2017-01-27 13:16 | PT.PROG ---
Progress Note Progress Note: Inpatient Initial Evaluation Name: Cassandra Mera Date: 01/27/17 Referring Physician: Darren Benoit MD Date of Admission: 01/26/17 Diagnosis: Weakness Thank you for the referral of PT. Cassandra Mera was seen on 01/27/17 for the above diagnosis. Subjective: Cassandra is a 86/F who states she was brought to the hospital yesterday due to headaches, dizziness and weakness. Pt states that she had been having diarrhea for quite some time but states that today she has not had that issue. Pt states that she is doing much better today and reports 0/10 pain. Pt states that prior to coming to the hospital, she was utilizing a FWW for ambulating around her apartment at [facility] and at times utilized a wheelchair. Pt states that she was independent with transfers and toileting activity. Pt states that her [id number] and daughter came to check on patient daily and assisted with cooking meals, prepping medications for the week , bathing and laundry. Pt reports difficulties with swallowing which has been an issue for some time and she must have her food ground up. Pt states that she does not leave her apartment often. Pt reports that she does receive meals on wheels. Pt states that she has not had any falls. Pt does have difficulties with memory at times. Prior to evaluating patient, I did converse with Dr. Benoit who stated that he would like PT to evaluate patient to determine if she is at her baseline in order for her to return home. Past medical history: Past medical history can be found in patient's medical chart. Objective findings: Pt was alert upon PT arrival. Pt was laying in bed with HOB elevated. Pt agreed to participate in therapy and stated that she was doing very good. Pt was able to perform supine to sit transfer independently. A gait belt was placed on pt prior to her performing a sit to stand transfer with SBA x 1 for safety. Pt demo fair initial standing balance and good standing balance once she had a [employer] x 2 on FWW. Pt ambulated x 160 ft with FWW and CGA x 1 for safety - when pt ambulated she did have a tendency to veer to the left but was able to correct herself without LOB. Pt was able to perform 5x sit to stand transfers from EOB with use of hands in 36.4 seconds. Pt demonstrated 3/5 bilateral u/e strength and 4/5 bilateral l/e strength with gross MMT. Pt able to transfer from seated to supine position independently. At the end of the evaluation, bed alarm was set and pt's call light was placed within her reach. Assessment: Based on patient's performance with the initial evaluation along with pt's subjective information, pt appears to be back at her baseline in regards to mobility and transfers. Recommended to patient that she have a life alert button to wear in case she does have any incident in her apartment. Discussed with pt and MD that due to swallowing difficulties, pt would be a good candidate for outpatient OT to address swallowing issues. Treatment Plan: No further skilled therapy indicated at this time as pt is at her baseline in regards to mobility and transfers. Pt to continue to utilize FWW with ambulation and received assistance from family for IADL's as she had been. Initial treatment consisted of the initial evaluation. Respectfully submitted, Marlen Hong DPT
[2017-01-27 13:20] VITALS: BP 156/72; RESP 18; TEMP 98.2; O2SAT 94
[2017-01-27] MEDS ORDERED: ATORVASTATIN 20 MG TABLET PO SCH (21:00)
== END 2017-01-27 13:25 | disposition home or self-care (01) ==
LOC: ER 17:51 → MED/SURG 17:51
PROVIDERS: ADMIT Internal Medicine; ATTEND Internal Medicine

== ENCOUNTER 2017-05-01 08:16 | Inpatient (IN) ==
[2017-05-01] MEDS ORDERED: ONDANSETRON 4 MG/2 ML VIAL IVP ONE (08:53)
[2017-05-01] MEDS ORDERED: NORMAL SALINE 10 ML SYRINGE FLUSH IVP PRN ×2 (08:53→12:06)
[2017-05-01] MEDS ORDERED: Sodium Chloride 0.9% 1,000 ML PRIMARY IV ONE (08:53)
--- NOTE | 2017-05-01 09:03 | PDOC ---
General Adult HPI - General Chief Complaint: General Medical Stated Complaint: not eating, nausea, "dehydration", gets her medications mixed up. Date Seen by Provider: 05/01/17 Time Seen by Provider: 08:40 Source: POSITIVE: Patient, Other (Daughter (who is patient's guardian) and [id number], who cares for patient daily) Exam Limitations: POSITIVE: Clinical condition (Patient is a somewhat poor historian; collateral information was obtained from the patient's daughter and [id number]) Nurse's Notes Reviewed & Considered: Yes - History of Present Illness Initial Comment: The patient is an 86-year-old female who is brought to the emergency room by her daughter and [id number]. The daughter identifies herself as the patient's guardian. Patient lives alone at [facility], and the patient's [id number] checks on her daily. According the patient's daughter, the patient has complained of severe nausea with some reduced oral intake and the patient has apparently not been able to tolerate her oral medications. No vomiting. Some diarrhea. She also complains of a circumferential headache. Patient has become progressively weak, and the daughter reports that the patient is not able to administer her medications to herself anymore because she gets confused. No known fevers or chills. No falls or trauma. No abdominal pain. Daughter is concerned that patient is not able to care for herself in her present living environment. Daughter relates that she and family members have initiated paperwork to have her admitted into the [facility]. Daughter relates that the patient was admitted approximately 2 months ago with pretty much identical symptoms, including circumferential headache; she had a CT scan of the head at the time, and daughter requests that this test not be repeated due to its expense. Have you received a tetanus shot in the past 10 years?: Yes Body Location Affected: REPORTS: Head (Circumferential headache), Abdomen ( Nausea), Other (Decreased oral intake, some confusion; daughter is concerned that the patient is not able to care for herself in her present living environment.) Timing: REPORTS: Gradual Duration: >1 week Severity: Moderate Quality: REPORTS: Other Context: REPORTS: None (Circumferential headache) Modifying Factors: improves with: Other (Nausea) Associated Symptoms: As above Similar Symptoms Previously: No (admitted with similar symptoms approximately 2 months ago) Recent Care Received: REPORTS: Recently Seen, Treated by , Hospitalized (As above) Any Prior Injuries Related to Current Complaint?: No - Patient Home Medications Home Medications: Home Medications Latanoprost [Xalatan] 1 drp OP DAILY #3 bottle 10/15/13 Clotrim Antifungal 1 applic TOPICAL BID #1 tube 03/07/15 Amlodipine Besylate 5 mg PO DAILY #90 tab 07/30/16 Carvedilol 6.25 mg PO BID #180 tab 07/30/16 Glipizide [Glipizide ER] 1 tab PO BID #180 tab 07/30/16 Potassium Chloride [Klor-Con 10] 10 meq PO DAILY #90 tab 07/30/16 Atorvastatin Calcium [Lipitor] 20 mg PO DAILY #90 tab 10/29/16 Quinapril HCl 20 mg PO DAILY #90 tab 10/29/16 - Patient Allergies Allergies/Adverse Reactions: Allergies 3 Allergy/AdvReac Type Severity Reaction Status Date / Time Penicillins Allergy Intermediate rash on Verified 01/31/17 11:11 legs aspirin Allergy VOMITING Verified 01/31/17 11:11 captopril AdvReac Intermediate diarrhea Verified 01/31/17 11:11 hydrochlorothiazide AdvReac Intermediate diarrhea Verified 01/31/17 11:11 indapamide AdvReac Intermediate feel Verified 01/31/17 11:11 terrible hydrocodone AdvReac NOT Verified 01/31/17 11:11 APPLICABLE Past Medical History - heen HEENT History: Glaucoma, Dental Disorders, Dentures/Partials Additional HEENT History: upper denture Cardiovascular History: Hypertension, Pacemaker, Aneurysm, Other (please comment ) Additional Cardiovasular History: had aortic aneurysm repair, pacemaker Respiratory History: Denies History Gastrointestinal History: Irritable Bowel Syndrome, Peptic Ulcer Disease Additional Gastrointestinal History: Appendectomy Genitourinary History: Denies History Endocrine History: Type 2 Diabetes (oral) Musculoskeletal History: Other (please comment) Prosthesis or Implant: No Additional Musculoskeletal History: CHRONIC BILAT FOOT PAIN, neuropathy in legs/ feet Neurological History: Dementia Blood Disorders: Denies History Psychiatric History: Denies History History of Sexually Transmitted Diseases: No LMP: 40 years ago Cancer History: Skin Cancer Treatment / Date(s) of Treatment: FACE In Past Year Been Physically Harmed or Verbally Threatened: No History of MDRO: No History of Other Communicable Diseases: No Tobacco Use: Never Smoker Alcohol Use: None In the Past 12 Months, Have Used or Abuse Any Substance: None Previous Surgical History: Yes Type / Date of Surgery: AORTIC ANEURYSM REPAIR 8 YRS AGO, CATARACTS, HYSTERECTOMY, APPENDECTOMY/ PACEMAKER/TONSILS/LEFT 2ND TOE EXCISION Anesthesia Reactions: Yes (VERY SENSITIVE TO NARCOTICS/COULD NOT WAKE UP) Malignant Hyperthermia: No Significant Family History: Diabetes Past Medical History Reviewed: Reviewed - No Changes ROS - Limitations ROS Limitations: No Limitations Constitution: REPORTS: Weakness, Other (Reduced oral intake) Cardiovascular: REPORTS: Denies Cardiac Symptoms Respiratory: REPORTS: Denies Resp Symptoms Neurological: REPORTS: Confusion (Infusion with regard to time a day and timing of her medications), Headache Gastrointestinal: REPORTS: Nausea, Diarrhea Endocrine: REPORTS: Denies Symptoms Musculoskeletal: REPORTS: Denies MS Symptoms Genitourinary: REPORTS: Denies Symptoms Eyes: REPORTS: Denies Symptoms ENT: REPORTS: Denies Symptoms Skin: REPORTS: Denies Skin Symptoms Lympathic: REPORTS: Denies Lympathic Symptoms Immunologic: POSITIVE: Denies Symptoms Psychiatric: POSITIVE: Denies Psych Symptoms (Patient alert and oriented at this time) General Adult Exam - General Appearance General Appearance: POSITIVE: Alert, Cooperative, No Acute Distress, No Evidence of Trauma - HEENT HEENT: POSITIVE: Eyes Inspection Nml, Ears Inspection Nml, Nose Inspection Nml, Oral/Dental Inspect. Nml, Pharynx Inspect. Nml, PERRL, EOMI. NEGATIVE: Head Inspection Nml (Scalp tenderness on palpation) - Pupils Pupil Size: 3 mm: Bilateral (PERRLA) - Neck Neck: POSITIVE: Normal Inspection, Thyroid Normal - Respiratory Respiratory: POSITIVE: No Respiratory Distress, Breath Sounds Normal, Chest Non- Tender - Cardiovascular Cardiovascular: POSITIVE: Regular Rate & Rhythm, No Murmur, No Gallop, PMI Normal Peripheral Pulses: Radial (R): 2+, Radial (L): 2+ - Abdomen Abdomen: Soft: (All Quadrants), Normal Bowel Sounds: (All Quadrants), Denies Tenderness: (All Quadrants), No Splenomegaly: (All Quadrants), No Hepatomegaly: (All Quadrants), No Guarding: (All Quadrants), No Rebound: (All Quadrants), No Palpable Pulse: (All Quadrants), No Palpabale Mass: (All Quadrants), No Distention: (All Quadrants), No Rigidity: (All Quadrants) - Back Back: POSITIVE: Normal Inspection - Skin Skin: POSITIVE: Normal Color, Warm, Dry - Extremities Extremity: Non-Tender: (All Extremities), Normal ROM: (All Extremities), Normal Inspection: (All Extremities) - Neurological / Psychological Neurological: 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 CBC, CMP, cardiac enzymes, total creatinine kinase, catheterized urinalysis, sedimentation rate all ordered and results are pending. Care of patient was transferred to Dr. Romero [id number]. Status: POSITIVE: Unchanged Antibiotics Given: No Patient Care Time - Estimated PCT Patient Care Time (In Minutes): 30 Vital Signs - Recent Vital Signs Vital Signs: Vital Signs (Last 8 hours) Temp Pulse Pulse Resp BP Pulse Ox 05/01/17 08:25 98.4 F 79 16 165/92 100 05/01/17 08:17 98.4 F 79 18 165/92 100 - VS Reviewed Vital Signs Reviewed: Yes Discharge Clinical Impression: Confusion, Diabetes mellitus, Diarrhea, Nausea, Weakness generalized, Hypertension Discharge Disposition: Other (Care transferred third to Dr. Romero, the emergency room physician who comes on duty at 0900.) Condition: Fair Follow Up With: [facility] [Primary Care Provider] - Care Transferred To: Dr. Romero at 0900.
[2017-05-01 09:05] LABS: BASOPHILS # (AUTO) 0.01 10*3/UL; BASOPHILS % (AUTO) 0.2 % (0-1); EOSINOPHILS # (AUTO) 0.06 10*3/UL; EOSINOPHILS % (AUTO) 1.3 % (0-8); Hematocrit [HCT] 48.1 % (37.0-47.0); Hemoglobin [HGB] 16.1 g/dL (12.0-16.0); LYMPHOCYTES # (AUTO) 1.07 10*3/uL; MEAN CORPUSCULAR HEMOGLOBIN 30.5 PG (27-31); MEAN CORPUSCULAR HGB CONC 33.5 g/dL (33-37); MEAN CORPUSCULAR VOLUME 91.1 FL (81-99); MEAN PLATELET VOLUME 9.7 FL (7.4-12.2); NEUTROPHILS % (AUTO) 65.1 % (50-80); RED BLOOD COUNT 5.28 10^6/uL (4.20-5.40)
[2017-05-01 09:19] LABS: BLOOD UREA NITROGEN 12 mg/dL (7-22); BUN/CREATININE RATIO 17.14 (6-20); SERUM ALBUMIN 4.6 g/dL (3.5-4.8)
--- NOTE | 2017-05-01 09:32 | PDOC ---
Transfer of Care - Care Accepted Time Care Transferred: 09:00 Report from Transferring Physician Received: Yes MDM / ED Course: This is a thin pleasantly mildly demented 86-year-old female. She is complaining of headache, nausea and vomiting, diarrhea, and abdominal pain. Her symptoms began yesterday with vomiting and diarrhea. Today she has diarrhea and headache. She denies any vomiting today. Her caregivers report that she has been increasingly forgetful, taking her medications in incorrect doses and at incorrect times. The family has begun the paperwork for admission to [facility] for long-term care. Home Medications: Home Medications Latanoprost [Xalatan] 1 drp OP DAILY #3 bottle 10/15/13 Clotrim Antifungal 1 applic TOPICAL BID #1 tube 03/07/15 Amlodipine Besylate 5 mg PO DAILY #90 tab 07/30/16 Carvedilol 6.25 mg PO BID #180 tab 07/30/16 Glipizide [Glipizide ER] 1 tab PO BID #180 tab 07/30/16 Potassium Chloride [Klor-Con 10] 10 meq PO DAILY #90 tab 07/30/16 Atorvastatin Calcium [Lipitor] 20 mg PO DAILY #90 tab 10/29/16 Quinapril HCl 20 mg PO DAILY #90 tab 10/29/16 Allergies/Adverse Reactions: Allergies Penicillins Allergy (Intermediate, Verified 01/31/17 11:11) rash on legs aspirin Allergy (Verified 01/31/17 11:11) VOMITING captopril Adverse Reaction (Intermediate, Verified 01/31/17 11:11) diarrhea hydrochlorothiazide Adverse Reaction (Intermediate, Verified 01/31/17 11:11) diarrhea indapamide Adverse Reaction (Intermediate, Verified 01/31/17 11:11) feel terrible hydrocodone Adverse Reaction (Verified 01/31/17 11:11) NOT APPLICABLE Vital Signs Reviewed: Yes Nurse's Notes Reviewed & Considered: Yes - Pending Patient Care Items Pending Patient Care Items: POSITIVE: Labs, CT / MRI Results - Expected Patient Outcome Tentative Impression of Patient: Nausea vomiting and diarrhea. Swirling of mesentery, Self-neglect and inability to care for self Expected Disposition: POSITIVE: Admit IP - Re-Evaluation of Patient Re-Examine Time:: 11:39 Disposition of Patient: POSITIVE: Admitted Counseled: POSITIVE: Patient, Family, RE: Lab Results, RE: Radiology Results, RE : DX Pending Test Results Documented: Yes Clinical Impression Documented: Yes - Results Reviewed Lab Results Reviewed by Me: Yes Lab Results: Laboratory Results 05/01/17 05/01/17 05/01/17 Range/Units 09:02 09:02 09:02 WBC 4.46 L (4.8-10.8) 10^3/uL RBC 5.28 (4.20-5.40) 10^6/uL Hgb 16.1 H (12.0-16.0) g/dL Hct 48.1 H (37.0-47.0) % MCV 91.1 (81-99) FL MCH 30.5 (27-31) PG MCHC 33.5 (33-37) g/dL RDW Std Deviation 43.0 (39-50) fL RDW Coeff of Christy 13.0 (11.5-14.5) % Plt Count 115 L (140-350) 10*3/uL MPV 9.7 (7.4-12.2) FL Immature Gran % (Auto) 0.4 (0-5) % Neut % (Auto) 65.1 (50-80) % Lymph % (Auto) 24.0 (10-50) % Cass % (Auto) 9.0 (5-15) % Eos % (Auto) 1.3 (0-8) % Baso % (Auto) 0.2 (0-1) % Immature Gran # (Auto) 0.02 10*3/UL Neut # (Auto) 2.90 10*3/UL Lymph # (Auto) 1.07 10*3/uL Cass # (Auto) 0.40 (0.3-0.8) 10*3/UL Eos # (Auto) 0.06 10*3/UL Baso # (Auto) 0.01 10*3/UL WBC Morphology Comment Normal morphology (NORM) Plt Morphology Comment Normal morphology (NORM) RBC Morph Comment Normal morphology (NORM) ESR (0-20) MM/HR Sodium 140 (135-145) meq/L Potassium 4.1 (3.8-5.2) meq/L Chloride 102 (98-112) meq/L Carbon Dioxide 26 (23-33) meq/L Anion Gap 12 (5-20) BUN 12 (7-22) mg/dL Creatinine 0.7 (0.50-1.20) mg/dL BUN/Creatinine Ratio 17.14 (6-20) Glucose 110 (78-110) mg/dL Calculated Osmolality 290.0 (267-292) mOsm/kg Lactic Acid 1.2 (0.70-2.10) MMOL/L Calcium 9.7 (8.7-10.7) mg/dL Total Bilirubin 0.7 (0.3-1.2) mg/dL AST 23 (8-39) IU/L ALT 30 (9-52) IU/L Alkaline Phosphatase 85 (38-126) IU/L Total Creatine Kinase 35 (30-136) IU/L Troponin I (< 0.040) ng/mL Total Protein 7.8 (6.1-8.0) g/dL Albumin 4.6 (3.5-4.8) g/dL Globulin 3.2 (2.50-4.10) g/dL Albumin/Globulin Ratio 1.40 (1.3-2.0) mg/g Ur Collection Type Urine Color (Y) Urine Clarity (CLEAR) Urine pH (5.0-8.5) Ur Specific [place] (1.005-1.030) Urine Protein (NEG) mg/dl Urine Glucose (UA) (NEG) mg/dL Urine Ketones (NEG) Urine Occult Blood (NEG) Urine Nitrate (NEG) Urine Bilirubin (NEG) Urine Urobilinogen (0.2) EU/dL Ur Leukocyte Esterase (NEG) Urine RBC (NONE) /hpf Urine WBC (NONE) Ur Squamous Epith Cells (NONE) Ur Renal Epithelial Cell (NONE) Urine Crystals Urine Bacteria (NONE) Urine Casts (NONE) Urine Mucus (NONE) Urine Trichomonas (NONE) Urine Yeast (NONE) Ur Culture Indicated? 05/01/17 05/01/17 05/01/17 Range/Units 09:02 09:02 10:24 WBC (4.8-10.8) 10^3/uL RBC (4.20-5.40) 10^6/uL Hgb (12.0-16.0) g/dL Hct (37.0-47.0) % MCV (81-99) FL MCH (27-31) PG MCHC (33-37) g/dL RDW Std Deviation (39-50) fL RDW Coeff of Christy (11.5-14.5) % Plt Count (140-350) 10*3/uL MPV (7.4-12.2) FL Immature Gran % (Auto) (0-5) % Neut % (Auto) (50-80) % Lymph % (Auto) (10-50) % Cass % (Auto) (5-15) % Eos % (Auto) (0-8) % Baso % (Auto) (0-1) % Immature Gran # (Auto) 10*3/UL Neut # (Auto) 10*3/UL Lymph # (Auto) 10*3/uL Cass # (Auto) (0.3-0.8) 10*3/UL Eos # (Auto) 10*3/UL Baso # (Auto) 10*3/UL WBC Morphology Comment (NORM) Plt Morphology Comment (NORM) RBC Morph Comment (NORM) ESR 10 (0-20) MM/HR Sodium (135-145) meq/L Potassium (3.8-5.2) meq/L Chloride (98-112) meq/L Carbon Dioxide (23-33) meq/L Anion Gap (5-20) BUN (7-22) mg/dL Creatinine (0.50-1.20) mg/dL BUN/Creatinine Ratio (6-20) Glucose (78-110) mg/dL Calculated Osmolality (267-292) mOsm/kg Lactic Acid (0.70-2.10) MMOL/L Calcium (8.7-10.7) mg/dL Total Bilirubin (0.3-1.2) mg/dL AST (8-39) IU/L ALT (9-52) IU/L Alkaline Phosphatase (38-126) IU/L Total Creatine Kinase (30-136) IU/L Troponin I < 0.012 (< 0.040) ng/mL Total Protein (6.1-8.0) g/dL Albumin (3.5-4.8) g/dL Globulin (2.50-4.10) g/dL Albumin/Globulin Ratio (1.3-2.0) mg/g Ur Collection Type Clean catch urine Urine Color Yellow (Y) Urine Clarity Clear (CLEAR) Urine pH 7.0 (5.0-8.5) Ur Specific [place] 1.010 (1.005-1.030) Urine Protein Negative (NEG) mg/dl Urine Glucose (UA) Negative (NEG) mg/dL Urine Ketones 15 (NEG) Urine Occult Blood Trace-intact H (NEG) Urine Nitrate Negative (NEG) Urine Bilirubin Negative (NEG) Urine Urobilinogen 0.2 (0.2) EU/dL Ur Leukocyte Esterase Negative (NEG) Urine RBC None (NONE) /hpf Urine WBC None (NONE) Ur Squamous Epith Cells Rare (NONE) Ur Renal Epithelial Cell None (NONE) Urine Crystals None Urine Bacteria None (NONE) Urine Casts None (NONE) Urine Mucus None (NONE) Urine Trichomonas None (NONE) Urine Yeast None (NONE) Ur Culture Indicated? Culture not set - Consult Consult (If Yes, Name of Consulting MD & Time Called): Yes (Dr. Stein, 1130, Dr. Mercedes Trejo, 1130 hrs.) Recommendations:: Admission. Patient Care Time - Estimated PCT Patient Care Time (In Minutes): 30 Vital Signs - Recent Vital Signs Vital Signs: Vital Signs (Last 8 hours) Temp Pulse Pulse Resp BP Pulse Ox 05/01/17 08:25 98.4 F 79 16 165/92 100 05/01/17 08:17 98.4 F 79 18 165/92 100 - VS Reviewed Vital Signs Reviewed: Yes Discharge Clinical Impression: Confusion, Diabetes mellitus, Diarrhea, Nausea, Weakness generalized, Hypertension, Vomiting and diarrhea, Self neglect Discharge Disposition: Admit to Inpatient Condition: Stable Follow Up With: [facility] [Primary Care Provider] - Date Decision to Admit to Inpatient: 05/01/17 Time Decision to Admit to Inpatient: 11:42
[2017-05-01 09:44] LABS: PLATELET MORPHOLOGY COMMENT NORMAL MORPHOLOGY (NORM); RBC MORPHOLOGY COMMENT NORMAL MORPHOLOGY (NORM); WBC MORPHOLOGY COMMENT NORMAL MORPHOLOGY (NORM)
[2017-05-01 10:41] LABS: BILIRUBIN,URINE NEGATIVE (NEG); CLARITY,URINE CLEAR (CLEAR); COLOR,URINE YELLOW (Y); GLUCOSE, URINE (UA) NEGATIVE (NEG); OCCULT BLOOD,URINE Trace-intact (NEG); PROTEIN,URINE NEGATIVE (NEG); UROBILINOGEN,URINE 0.2 EU/dL (0.2)
[2017-05-01 11:05] LABS: SQUAMOUS EPITHELIAL CELL,UR RARE; URINE SAMPLE TYPE CLEAN CATCH URINE
--- NOTE | 2017-05-01 11:41 | DI ---
CT Abdomen/Pelvis W Contrast,05/01/2017 9:42 AM: Clinical History: Nausea, vomiting and diarrhea. Previous Exam: January 26, 2017 Findings: Multiple helically acquired CT images are obtained through the abdomen and pelvis following the intra venous administration of contrast. The urinary bladder is unremarkable. The liver, spleen, pancreas, adrenals and kidneys are unremarkable. Peripheral vascular calcification s are seen. There are few phleboliths within the deep pelvis. There is no hydronephrosis nor nephrolithiasis. There are multiple stable colonic diverticula without any CT evidence of acute diverticulitis at this time. Diffuse degenerative changes of the spine are seen. There is some swirling of the mesentery without transposition of the superior mesenteric vein and art bridget. There is no evidence of bowel obstruction at this time. Vascular flow is seen throughout the ves sels as well, and there is no definite evidence of ischemic bowel. There are some air and fluid-fille d loops of small bowel. Diffuse degenerative changes of the spine are seen which are stable and there is diffuse osteopenia w hich is stable. Pacemaker is noted within the heart. Stable postsurgical changes are seen consistent with prior abdominal aortic aneurysm repair. Impression: 1. Swirling mesentery with a few air and fluid-filled loops of small bowel, but with no evidence of h igh-grade obstruction. 2. Diverticulosis without evidence of acute diverticulitis.
[2017-05-01] MEDS ORDERED: HYDROmorphone 2 MG/1 ML IVP PRN (12:06)
[2017-05-01] MEDS ORDERED: ONDANSETRON 4 MG/2 ML VIAL IVP PRN (12:06)
[2017-05-01] MEDS ORDERED: CALCIUM CARBONATE 500 MG (TUMS) CHEWABLE TABLET PO PRN (12:06)
[2017-05-01] MEDS ORDERED: DOCUSATE 100 MG CAPSULE PO PRN (12:06)
[2017-05-01] MEDS ORDERED: LIDOCAINE W/ SODIUM BICARB 0.5 ML SYR SUBD PRN (12:06)
[2017-05-01] MEDS ORDERED: ACETAMINOPHEN 325 MG TABLET PO PRN ×2 (12:06→15:01)
[2017-05-01] MEDS: HEPARIN 5000 UNIT/1 ML SUBCUT SCH ×2 (14:02→20:37)
[2017-05-01] MEDS: Sodium Chloride 0.9% 1,000 ML PRIMARY IV SCH ×2 (14:03→20:37)
--- NOTE | 2017-05-01 14:32 | PDOC ---
HPI - History of Present Illness Date of Service: 05/01/17 Time of Service: 14:30 Chief Complaint: abdominal pain History of Present Illness: This very pleasant 86-year-old female that has advanced dementia and cannot provide much of a history. She currently came down with abdominal pain that was quite severe in nature. She's had intermittent diarrhea for some time. That has been worked on in the clinic with medication cessation, and the patient has not had any fevers, chills, nausea, or vomiting. She had a CT scan of the abdomen and pelvis in the emergency room that showed some mesenteric swirling that was felt to be an early volvulus but there is no evidence of any obstruction. Surgery was consulted and will see the patient a little bit later today. Upon arrival to the floor, the patient does not even remember that she had abdominal pain earlier and cannot provide any details of her abdominal pain at all. She's not had any gallbladder workup to my knowledge she does not have a history of a cholecystectomy according to her family. The only surgery that was remembered by the patient was an appendectomy in the past. On my view the CT scan, the patient had a very large bladder and I had a bladder scan here at bedside and the patient had 794 mL. We will check a postvoid residual as well but I do suspect urinary retention. Exacerbating factors cannot be determined due to dementia. Patient cannot locate where the pain was at. Past Medical History Medical History: 1. Hypertension. 2. Diabetes. 3. History of pacemaker insertion about 3 years ago. 4. Dementia, advanced. 5. Hyperglyceridemia, on statin therapy. Surgical History: 1. Appendectomy Family History: Reviewed an Not Pertinent Pertinent Family History: There is dementia and heart disease in the family per the patient's daughter. Past Social History: Patient does not smoke or drink. She had 5 children, her daughter, present today, is her power of fermenter. Tobacco Use: Never Smoker In the Past 12 Months, Have Used or Abuse Any of the Following Substance: None Alcohol Use: None Medication / Allergies Home Medications: Home Medications 3 Medication Instructions Recorded Confirmed Type Latanoprost [Xalatan] 1 drp OP DAILY #3 bottle 10/15/13 05/01/17 History Clotrim Antifungal 1 applic TOPICAL BID #1 tube 03/07/15 05/01/17 Clinic Amlodipine Besylate 5 mg PO DAILY #90 tab 07/30/16 05/01/17 Rx Carvedilol 6.25 mg PO BID #180 tab 07/30/16 05/01/17 Rx Glipizide [Glipizide ER] 1 tab PO BID #180 tab 07/30/16 05/01/17 Rx Potassium Chloride [Klor-Con 10] 10 meq PO DAILY #90 tab 07/30/16 05/01/17 Rx Atorvastatin Calcium [Lipitor] 20 mg PO DAILY #90 tab 10/29/16 05/01/17 Rx Quinapril HCl 20 mg PO DAILY #90 tab 10/29/16 05/01/17 Rx Allergies/Adverse Reactions: Allergies 3 Allergy/AdvReac Type Severity Reaction Status Date / Time Penicillins Allergy Intermediate rash on Verified 05/01/17 13:23 legs aspirin Allergy VOMITING Verified 05/01/17 13:23 captopril AdvReac Intermediate diarrhea Verified 05/01/17 13:23 hydrochlorothiazide AdvReac Intermediate diarrhea Verified 05/01/17 13:23 indapamide AdvReac Intermediate feel Verified 05/01/17 13:23 terrible hydrocodone AdvReac NOT Verified 05/01/17 13:23 APPLICABLE Review of Systems - Review of Systems ROS Unobtainable: Due to Mental Status (I could not obtain an adequate review systems due to dementia. However, noted below are the things the patient denies. There are exceptions and that below as well.) - Respiratory Respiratory: REPORTS: Negative System Review - Cardiovascular Cardiovascular: REPORTS: Negative System Review - Gastrointestinal Gastrointestinal / Abdominal: REPORTS: Diarrhea (Patient's daughter states it's been fairly chronic. Her [id number] says the same thing.), Abdominal Pain (As per history present illness), See HPI Exam - Vitals Vital Signs: Vital Signs Temperature 98 F Temperature Source Temporal Artery Scan Pulse Rate [Pulse Oximeter] 78 Respiratory Rate 18 Blood Pressure [Left Arm] 197/95 Pulse Ox 98 Oxygen Delivery Method Room Air Height 5 ft Weight 101 lb - General General Appearance: No Acute Distress, Cooperative - Head Head Exam: Normal Inspection, Normocephalic, Atraumatic - Eye Eye Exam: POSITIVE: No Scleral Icterus - ENT ENT Exam: POSITIVE: Mucous Membranes Moist - Neck Neck Exam: Normal Inspection, No Tenderness, No Lymphadenopathy, No Thyromegaly - Respiratory Respiratory Exam: POSITIVE: Clear to Auscultation - Bilaterally, Breathing Non Labored - Cardiovascular Cardiovascular Exam: POSITIVE: RRR, No Murmur, No Clicks, No Gallops, No Rubs, No JVD - GI/Abdominal GI/Abdominal Exam: POSITIVE: Normal Bowel Sounds, Non Tender, Non Distended, Soft - Rectal Rectal Exam: POSITIVE: Deferred - External Exam: POSITIVE: Deferred - Extremities Extremities Exam: POSITIVE: No Clubbing Present, No Edema Present, No Cyanosis Present - Neurological Neurological Exam: POSITIVE: Alert, No Facial Droop, Speech Intact / Clear, Moves All Extremities Equally Additional Neurological Exam Details: Oriented to person. Not to place, time, or situation. - Psychiatric Psychiatric Exam: POSITIVE: Normal Affect, Normal Mood - Integumentary Integumentary Exam: POSITIVE: Normal Color, Warm, Dry, Intact - Central Line Examination Central Line Present on Admission: No Results - Labs CBC and BMP: 05/01/17 09:02 05/01/17 09:02 Additional Lab Results: Laboratory Results 05/01/17 05/01/17 05/01/17 Range/Units 09:02 09:02 09:02 WBC 4.46 L (4.8-10.8) 10^3/uL RBC 5.28 (4.20-5.40) 10^6/uL Hgb 16.1 H (12.0-16.0) g/dL Hct 48.1 H (37.0-47.0) % MCV 91.1 (81-99) FL MCH 30.5 (27-31) PG MCHC 33.5 (33-37) g/dL RDW Std Deviation 43.0 (39-50) fL RDW Coeff of Christy 13.0 (11.5-14.5) % Plt Count 115 L (140-350) 10*3/uL MPV 9.7 (7.4-12.2) FL Immature Gran % (Auto) 0.4 (0-5) % Neut % (Auto) 65.1 (50-80) % Lymph % (Auto) 24.0 (10-50) % [place] % (Auto) 9.0 (5-15) % Eos % (Auto) 1.3 (0-8) % Baso % (Auto) 0.2 (0-1) % Immature Gran # (Auto) 0.02 10*3/UL Neut # (Auto) 2.90 10*3/UL Lymph # (Auto) 1.07 10*3/uL [place] # (Auto) 0.40 (0.3-0.8) 10*3/UL Eos # (Auto) 0.06 10*3/UL Baso # (Auto) 0.01 10*3/UL WBC Morphology Comment Normal morphology (NORM) Plt Morphology Comment Normal morphology (NORM) RBC Morph Comment Normal morphology (NORM) ESR (0-20) MM/HR Sodium 140 (135-145) meq/L Potassium 4.1 (3.8-5.2) meq/L Chloride 102 (98-112) meq/L Carbon Dioxide 26 (23-33) meq/L Anion Gap 12 (5-20) BUN 12 (7-22) mg/dL Creatinine 0.7 (0.50-1.20) mg/dL BUN/Creatinine Ratio 17.14 (6-20) Glucose 110 (78-110) mg/dL Calculated Osmolality 290.0 (267-292) mOsm/kg Lactic Acid 1.2 (0.70-2.10) MMOL/L Calcium 9.7 (8.7-10.7) mg/dL Total Bilirubin 0.7 (0.3-1.2) mg/dL AST 23 (8-39) IU/L ALT 30 (9-52) IU/L Alkaline Phosphatase 85 (38-126) IU/L Total Creatine Kinase 35 (30-136) IU/L Troponin I (< 0.040) ng/mL Total Protein 7.8 (6.1-8.0) g/dL Albumin 4.6 (3.5-4.8) g/dL Globulin 3.2 (2.50-4.10) g/dL Albumin/Globulin Ratio 1.40 (1.3-2.0) mg/g Ur Collection Type Urine Color (Y) Urine Clarity (CLEAR) Urine pH (5.0-8.5) Ur Specific [place] (1.005-1.030) Urine Protein (NEG) mg/dl Urine Glucose (UA) (NEG) mg/dL Urine Ketones (NEG) Urine Occult Blood (NEG) Urine Nitrate (NEG) Urine Bilirubin (NEG) Urine Urobilinogen (0.2) EU/dL Ur Leukocyte Esterase (NEG) Urine RBC (NONE) /hpf Urine WBC (NONE) Ur Squamous Epith Cells (NONE) Ur Renal Epithelial Cell (NONE) Urine Crystals Urine Bacteria (NONE) Urine Casts (NONE) Urine Mucus (NONE) Urine Trichomonas (NONE) Urine Yeast (NONE) Ur Culture Indicated? 05/01/17 05/01/17 05/01/17 Range/Units 09:02 09:02 10:24 WBC (4.8-10.8) 10^3/uL RBC (4.20-5.40) 10^6/uL Hgb (12.0-16.0) g/dL Hct (37.0-47.0) % MCV (81-99) FL MCH (27-31) PG MCHC (33-37) g/dL RDW Std Deviation (39-50) fL RDW Coeff of Christy (11.5-14.5) % Plt Count (140-350) 10*3/uL MPV (7.4-12.2) FL Immature Gran % (Auto) (0-5) % Neut % (Auto) (50-80) % Lymph % (Auto) (10-50) % [place] % (Auto) (5-15) % Eos % (Auto) (0-8) % Baso % (Auto) (0-1) % Immature Gran # (Auto) 10*3/UL Neut # (Auto) 10*3/UL Lymph # (Auto) 10*3/uL [place] # (Auto) (0.3-0.8) 10*3/UL Eos # (Auto) 10*3/UL Baso # (Auto) 10*3/UL WBC Morphology Comment (NORM) Plt Morphology Comment (NORM) RBC Morph Comment (NORM) ESR 10 (0-20) MM/HR Sodium (135-145) meq/L Potassium (3.8-5.2) meq/L Chloride (98-112) meq/L Carbon Dioxide (23-33) meq/L Anion Gap (5-20) BUN (7-22) mg/dL Creatinine (0.50-1.20) mg/dL BUN/Creatinine Ratio (6-20) Glucose (78-110) mg/dL Calculated Osmolality (267-292) mOsm/kg Lactic Acid (0.70-2.10) MMOL/L Calcium (8.7-10.7) mg/dL Total Bilirubin (0.3-1.2) mg/dL AST (8-39) IU/L ALT (9-52) IU/L Alkaline Phosphatase (38-126) IU/L Total Creatine Kinase (30-136) IU/L Troponin I < 0.012 (< 0.040) ng/mL Total Protein (6.1-8.0) g/dL Albumin (3.5-4.8) g/dL Globulin (2.50-4.10) g/dL Albumin/Globulin Ratio (1.3-2.0) mg/g Ur Collection Type Clean catch urine Urine Color Yellow (Y) Urine Clarity Clear (CLEAR) Urine pH 7.0 (5.0-8.5) Ur Specific [place] 1.010 (1.005-1.030) Urine Protein Negative (NEG) mg/dl Urine Glucose (UA) Negative (NEG) mg/dL Urine Ketones 15 (NEG) Urine Occult Blood Trace-intact H (NEG) Urine Nitrate Negative (NEG) Urine Bilirubin Negative (NEG) Urine Urobilinogen 0.2 (0.2) EU/dL Ur Leukocyte Esterase Negative (NEG) Urine RBC None (NONE) /hpf Urine WBC None (NONE) Ur Squamous Epith Cells Rare (NONE) Ur Renal Epithelial Cell None (NONE) Urine Crystals None Urine Bacteria None (NONE) Urine Casts None (NONE) Urine Mucus None (NONE) Urine Trichomonas None (NONE) Urine Yeast None (NONE) Ur Culture Indicated? Culture not set - Imaging Status: Image Reviewed by Me (On my view the CT scan, the bladder looks enlarged and looks consistent with urinary retention. Kidneys look okay. The gallbladder looked small.), Report Reviewed by Me Assessment and Plan - Patient Problems (1) Acute urinary retention Current Visit: Yes Status: Acute Code(s): R33.8 - Other retention of urine (2) Abdominal pain Current Visit: Yes Status: Acute Code(s): R10.9 - Unspecified abdominal pain Qualifiers: Abdominal location: generalized Qualified Code(s): R10.84 - Generalized abdominal pain (3) Failure to thrive Current Visit: Yes Status: Acute Qualifiers: Failure to thrive age range: in adult Qualified Code(s): R62.7 - Adult failure to thrive (4) Dementia Current Visit: Yes Status: Acute Code(s): F03.90 - Unspecified dementia without behavioral disturbance Qualifiers: Dementia type: Alzheimer's disease Alzheimer's disease onset: late-onset Dementia behavioral disturbance: without behavioral disturbance Qualified Code (s): G30.1 - Alzheimer's disease with late onset; F02.80 - Dementia in other diseases classified elsewhere without behavioral disturbance (5) Diabetes mellitus Current Visit: Yes Status: Chronic Code(s): E11.9 - Type 2 diabetes mellitus without complications Qualifiers: Diabetes mellitus type: type 2 Diabetes mellitus complication status: without complication Diabetes mellitus fci insulin use: without moth exterminator use Qualified Code(s): E11.9 - Type 2 diabetes mellitus without complications (6) Hypertension Current Visit: Yes Status: Chronic Code(s): I10 - Essential (primary) hypertension Qualifiers: Hypertension type: essential hypertension - Assessment / Plan Additional Assessment/Plan Details: Admit the patient. PT and OT will be ordered. In terms of the abdominal pain, general surgery will see the patient and comment on this mesenteric swirling. Given the chronic diarrhea in the history or review systems from the patient's daughter and [id number], I think we should get a gallbladder ultrasound and make sure that there is no evidence of cholecystitis. It could be argued to do a HIDA scan, but we'll see what surgery thinks as well. Overall, I think the patient probably had acute urinary retention with over 700 mL in her bladder, she may need [place] catheterization or at least straight catheter to relieve the symptoms. business services specialist sales a consult that for consideration of placement in group home facility Stop cholesterol medication due to associations with cognitive impairments. Blood pressures are quite elevated, will monitor that and may adjust blood pressure medications based on such. Continue Glucerna when necessary. IV fluids, diet today, antiemetics of the written for. Check labs tomorrow.
[2017-05-01] MEDS ORDERED: [UNRECOGNIZED DRUG - OTHER] PO PRN (15:49)
--- NOTE | 2017-05-01 15:53 | CONSULT ---
Consult Note - Consult Consult Date: 05/01/17 Reason for Consult: PreOp Consulation : General Surgery Requesting Physician: Dr. Sarita Beuno Primary Care Provider: Sarah Beth Wei MD - History of Present Illness History of Present Illness: The patient is an 86-year-old female who presented to the emergency room this morning for abdominal pain, nausea, vomiting, and diarrhea. She thinks this has been going on about a week. She is a poor historian and her family is not here at the present time. There is an element of dementia as well. Patient was admitted in January for the same. CT scan was done. I have reviewed that scan. I think there may be an element of twisting in the mesentery at that time but less so than at present. She had diverticulosis as well as gallstones. There was no evidence of acute cholecystitis. She was admitted for several days and then discharged home. Apparently she did well until about the last week. Again she presented with diarrhea, nausea, vomiting, and some abdominal pain. She has some tenderness in her left lower quadrant. Her white count was normal. Her lab work was relatively unremarkable as was her urinalysis. A CT scan was done. There is some swirling in the mesentery of the small bowel. The bowel appears viable. There is no bowel wall thickening or signs of ischemia. All vessels appear to have flow. It does not appear to be a complete twist. There is no evidence of obstruction. I have reviewed these films with the radiologist. I just spoke to the patient. At the present time she denies nausea. She has not vomited since admission. She denies any abdominal pain. She says she is passing gas today as well as for the last several days. She had diarrhea yesterday as well as today. The patient has been living at home alone with help from her family. They have started planning placement in the care facility. Review of Systems - Gastrointestinal Gastrointestinal / Abdominal: REPORTS: Nausea, Vomiting, Diarrhea, Abdominal Pain (Resolved), See HPI Past Medical History Medical History: 1. Hypertension. 2. Diabetes. 3. Pacemaker. 4. Dementia , advanced. 5. Hyperlipidemia, on statin therapy. 6. Coronary artery disease. 7. Type II diabetes. 8. Diverticulosis. 9. Glaucoma Surgical History: 1. Appendectomy. 2. Repair abdominal aortic aneurysm. 3. History of breast biopsy. 4. Cardiac pacemaker insertion. 5. Status post hysterectomy Family History: Reviewed an Not Pertinent Pertinent Family History: There is dementia and heart disease in the family per the patient's daughter. Past Social History: Patient does not smoke or drink. She had 5 children, her daughter, present today, is her power of assistant prosecuting attorney. Tobacco Use: Never Smoker In the Past 12 Months, Have Used or Abuse Any of the Following Substance: None Alcohol Use: None Medication / Allergies Home Medications: Home Medications 3 Medication Instructions Recorded Confirmed Type Latanoprost [Xalatan] 1 drp OP DAILY #3 bottle 10/15/13 05/01/17 History Clotrim Antifungal 1 applic TOPICAL BID #1 tube 03/07/15 05/01/17 Clinic Amlodipine Besylate 5 mg PO DAILY #90 tab 07/30/16 05/01/17 Rx Carvedilol 6.25 mg PO BID #180 tab 07/30/16 05/01/17 Rx Glipizide [Glipizide ER] 1 tab PO BID #180 tab 07/30/16 05/01/17 Rx Potassium Chloride [Klor-Con 10] 10 meq PO DAILY #90 tab 07/30/16 05/01/17 Rx Atorvastatin Calcium [Lipitor] 20 mg PO DAILY #90 tab 10/29/16 05/01/17 Rx Quinapril HCl 20 mg PO DAILY #90 tab 10/29/16 05/01/17 Rx Allergies/Adverse Reactions: Allergies 3 Allergy/AdvReac Type Severity Reaction Status Date / Time Penicillins Allergy Intermediate rash on Verified 05/01/17 13:23 legs aspirin Allergy VOMITING Verified 05/01/17 13:23 captopril AdvReac Intermediate diarrhea Verified 05/01/17 13:23 hydrochlorothiazide AdvReac Intermediate diarrhea Verified 05/01/17 13:23 indapamide AdvReac Intermediate feel Verified 05/01/17 13:23 terrible hydrocodone AdvReac NOT Verified 05/01/17 13:23 APPLICABLE Results - Labs CBC and BMP: 05/01/17 09:02 05/01/17 09:02 - Imaging Status: Image Reviewed by Me (And discussed with the radiologist.), Report Reviewed by Me Exam - Vitals Vital Signs: Vital Signs Temperature 98 F Temperature Source Temporal Artery Scan Pulse Rate [Pulse Oximeter] 78 Respiratory Rate 18 Blood Pressure [Left Arm] 197/95 Pulse Ox 98 Oxygen Delivery Method Room Air Height 5 ft Weight 101 lb - General General Appearance: No Acute Distress, Cooperative - Respiratory Respiratory Exam: POSITIVE: Clear to Auscultation - Bilaterally, Breathing Non Labored - Cardiovascular Cardiovascular Exam: POSITIVE: RRR, No Murmur - GI/Abdominal GI/Abdominal Exam: POSITIVE: Normal Bowel Sounds, Non Tender, Non Distended, Soft, No Masses - Rectal Rectal Exam: POSITIVE: Deferred - Neurological Neurological Exam: POSITIVE: Alert - Psychiatric Psychiatric Exam: POSITIVE: Normal Affect, Normal Mood Assessment and Plan - Patient Problems (1) Twisting of intestine on mesenteric axis Current Visit: Yes Status: Acute Priority: Medium Comment: There is swirling of the mesentery seen on the present CT. There is no evidence of compromised or ischemic bowel. There is no evidence of bowel obstruction at present. Abdominal pain has resolved. Nothing needs to be done at this time. If she has increased abdominal pain or evidence of blockage a Gastrografin challenge would be appropriate as would a CT scan with oral contrast. Code(s): K56.2 - Volvulus (2) Abdominal pain Current Visit: Yes Status: Chronic Priority: Medium Comment: Resolved at this time. Code(s): R10.9 - Unspecified abdominal pain (3) Diarrhea Current Visit: Yes Status: Acute Priority: Medium Comment: If the diarrhea continues would recommend a full panel of stool studies. Code(s): R19.7 - Diarrhea, unspecified (4) Nausea and vomiting in adult Current Visit: Yes Status: Acute Comment: Resolved at this time. Treat medically if it recurs. Code(s): R11.2 - Nausea with vomiting, unspecified (5) Cholelithiasis Current Visit: Yes Status: Acute Comment: Noted on CT scan done in January 2017. No evidence of cholecystitis. Code(s): K80.20 - Calculus of gallbladder without cholecystitis without obstruction Qualifiers: Cholelithiasis location: gallbladder Cholecystitis presence: without cholecystitis Biliary obstruction: without biliary obstruction Qualified Code(s): K80.20 - Calculus of gallbladder without cholecystitis without obstruction
[2017-05-01] MEDS: CARVEDILOL 6.25 MG TABLET PO SCH (20:38)
[2017-05-01] MEDS: LATANOPROST 0.005% EACH EYE SCH (20:38)
[2017-05-01] MEDS: EYE EACH EYE SCH (20:38)
[2017-05-01] MEDS ORDERED: ACETAMINOPHEN 325 MG TABLET PO SCH (21:00)
[2017-05-02] MEDS: HEPARIN 5000 UNIT/1 ML SUBCUT SCH ×3 (04:15→20:14)
[2017-05-02 05:38] LABS: BASOPHILS # (AUTO) 0.01 10*3/UL; BASOPHILS % (AUTO) 0.2 % (0-1); EOSINOPHILS # (AUTO) 0.08 10*3/UL; EOSINOPHILS % (AUTO) 1.8 % (0-8); Hematocrit [HCT] 39.6 % (37.0-47.0); LYMPHOCYTES # (AUTO) 1.12 10*3/uL; MEAN CORPUSCULAR HEMOGLOBIN 30.7 PG (27-31); MEAN CORPUSCULAR HGB CONC 32.8 g/dL (33-37); MEAN CORPUSCULAR VOLUME 93.6 FL (81-99); MEAN PLATELET VOLUME 9.7 FL (7.4-12.2); MONOCYTES # (AUTO) 0.49 10*3/UL (0.3-0.8); MONOCYTES % (AUTO) 11.1 % (5-15); NEUTROPHILS # (AUTO) 2.69 10*3/UL; RED BLOOD COUNT 4.23 10^6/uL (4.20-5.40)
[2017-05-02 05:41] LABS: PLATELET MORPHOLOGY COMMENT NORMAL MORPHOLOGY (NORM); RBC MORPHOLOGY COMMENT NORMAL MORPHOLOGY (NORM); WBC MORPHOLOGY COMMENT NORMAL MORPHOLOGY (NORM)
[2017-05-02 05:45] LABS: BLOOD UREA NITROGEN 10 mg/dL (7-22); BUN/CREATININE RATIO 16.66 (6-20); SERUM ALBUMIN 3.3 g/dL (3.5-4.8)
[2017-05-02] MEDS ORDERED: LATANOPROST 0.005% 2.5 ML EYE DROPS EACH EYE SCH (09:00)
[2017-05-02] MEDS: AmLODIPine Tab 5 MG TABLET PO SCH (09:27)
[2017-05-02] MEDS: CARVEDILOL 6.25 MG TABLET PO SCH ×2 (09:27→20:14)
[2017-05-02] MEDS: Pantoprazole Inj 40 MG in Normal Saline Flush 10 ML IVP SCH (09:27)
[2017-05-02] MEDS ORDERED: POTASSIUM CHLORIDE 20 MEQ TAB PO ONE (11:09)
[2017-05-02] MEDS: Sodium Chloride 0.9% 1,000 ML PRIMARY IV SCH (11:12)
--- NOTE | 2017-05-02 19:00 | PDOC(PROG) ---
Date and Time of Service: 05/02/2017, 1859 Interval History: Patient seen and evaluated earlier. No complaints of chest pain, shortness breath, nausea or vomiting. No complaints of abdominal pain. I spoke with surgery regarding prior cholelithiasis. They recommended canceling gallbladder ultrasound which I did. The patient did not have any awareness of her acute situation, time, or location. Objective : Data - Labs CBC and BMP: 05/02/17 05:33 05/02/17 05:33 Objective : Exam - General General Appearance: No Acute Distress, Cooperative Additional General Exam Details: Vital Signs (24 hrs) Temp Pulse Pulse Resp BP Pulse Ox 05/02/17 16:06 98.1 F 76 17 176/85 94 05/02/17 11:09 97.5 F 69 18 138/60 97 05/02/17 07:19 97.8 F 78 20 169/84 93 05/02/17 04:35 97.2 F 76 18 127/69 96 05/02/17 00:31 98.4 F 74 21 152/82 93 05/01/17 19:57 98.3 F 77 18 161/81 94 05/01/17 19:00 77 76 - Eye Eye Exam: No Scleral Icterus - ENT ENT Exam: Mucous Membranes Moist - Respiratory Respiratory Exam: Clear to Auscultation - Bilaterally, Breathing Non Labored - Cardiovascular Cardiovascular Exam: RRR, No Murmur, No Clicks, No Gallops, No Rubs, No JVD - GI/Abdominal GI/Abdominal Exam: Normal Bowel Sounds, Non Tender, Non Distended, Soft - Extremities Extremities Exam: No Clubbing Present, No Edema Present, No Cyanosis Present - Neurological Neurological Exam: Alert, No Facial Droop, Speech Intact / Clear, Moves All Extremities Equally, Altered - Psychiatric Psychiatric Exam: Normal Affect, Normal Mood Assessment and Plan - Patient Problems (1) Acute urinary retention Current Visit: Yes Status: Acute Code(s): R33.8 - Other retention of urine (2) Abdominal pain Current Visit: Yes Status: Acute Code(s): R10.9 - Unspecified abdominal pain Qualifiers: Abdominal location: generalized Qualified Code(s): R10.84 - Generalized abdominal pain (3) Failure to thrive Current Visit: Yes Status: Acute Qualifiers: Failure to thrive age range: in adult Qualified Code(s): R62.7 - Adult failure to thrive (4) Dementia Current Visit: Yes Status: Acute Code(s): F03.90 - Unspecified dementia without behavioral disturbance Qualifiers: Dementia type: Alzheimer's disease Alzheimer's disease onset: late-onset Dementia behavioral disturbance: without behavioral disturbance Qualified Code (s): G30.1 - Alzheimer's disease with late onset; F02.80 - Dementia in other diseases classified elsewhere without behavioral disturbance (5) Diabetes mellitus Current Visit: Yes Status: Chronic Code(s): E11.9 - Type 2 diabetes mellitus without complications Qualifiers: Diabetes mellitus type: type 2 Diabetes mellitus complication status: without complication Diabetes mellitus hospitalist nocturnist physician insulin use: without intermediate use Qualified Code(s): E11.9 - Type 2 diabetes mellitus without complications (6) Hypertension Current Visit: Yes Status: Chronic Code(s): I10 - Essential (primary) hypertension Qualifiers: Hypertension type: essential hypertension Qualified Code(s): I10 - Essential (primary) hypertension - Assessment / Plan Additional Assessment/Plan Details: This patient had her abdominal pain cleared quite quickly. Her initial CT scan appeared consistent with swirling of the mesentery or possible developing volvulus. But this did not rim turning machine operator to be the case clinically. In fact I think her abdominal pain was related to urinary retention which we relieved with intermittent catheterization. The patient is not at all safe to discharge from a social perspective. She lives alone, and though her daughter and her [id number] have been assisting by coming in and out of the house, this patient's safety is at significant risk due to her altered mental state and her advanced dementia. He is not safe to discharge home and really does require placement. Her diabetes is diet controlled. We will continue due to PT and OT and also ask for a Cognitive evaluation
[2017-05-02] MEDS: EYE EACH EYE SCH (20:14)
[2017-05-02] MEDS: LATANOPROST 0.005% EACH EYE SCH (20:14)
[2017-05-02] MEDS: POTASSIUM CHLORIDE 20 MEQ TAB PO SCH (20:15)
[2017-05-03] MEDS: HEPARIN 5000 UNIT/1 ML SUBCUT SCH ×3 (04:08→20:02)
[2017-05-03 05:21] LABS: BLOOD UREA NITROGEN 8 mg/dL (7-22); BUN/CREATININE RATIO 13.33 (6-20)
[2017-05-03] MEDS: CARVEDILOL 6.25 MG TABLET PO SCH ×2 (08:33→20:02)
[2017-05-03] MEDS: Pantoprazole Inj 40 MG in Normal Saline Flush 10 ML IVP SCH (08:33)
[2017-05-03] MEDS: POTASSIUM CHLORIDE 20 MEQ TAB PO SCH ×2 (08:33→20:01)
[2017-05-03] MEDS: AmLODIPine Tab 5 MG TABLET PO SCH (08:33)
--- NOTE | 2017-05-03 15:44 | PTI REPORT ---
Thank you for the referral of Cassandra Mera. She was seen on 05/03/17 for an inpatient evaluation secondary to weakness. SUBJECTIVE: The patient reports she is not going to be in the hospital long. She was at [facility] but believes she will be going to the [facility] ([place] as soon as a bed is available. She states she was recently brought into the emergency room but could not remember why. PAST MEDICAL HISTORY: Past medical history can be found in the patient's medical record. OBJECTIVE FINDINGS: Pain: The patient reports having pain but was unable to rate it on the verbal analog scale. Bed mobility/Transfers: Upon observation the patient was able to perform bed mobility and transfers with stand by assistance but did require verbal cues for proper hand placement on her walker as well as for the use of it due to concerns with safety. Ambulation: The patient was able to ambulate well over 300 feet continuously with front wheeled walker, gait belt, and stand by assistance. Activities of daily living: The patient was able to perform all toileting activities with stand by assistance without any difficulty. Strength: Upon observation the patient had within normal limits for bilateral lower extremity strength at 4/5. See occupational therapy evaluation for upper extremity measurements. Cognition: The patient was able to perform two step commands appropriately only 50% of the time, typically becoming confused. ASSESSMENT: Problem List: Decreased safety awareness Physical Therapy Goals: To be met by discharge from inpatient: Patient will demonstrate appropriate safety awareness with use of her assistive device with all transfers and ambulation. TREATMENT PLAN: Patient will be seen B.I.D during the week and one time per day over the weekend as an inpatient to address the above goals and objectives. INITIAL TREATMENT: Treatment today consisted of the initial evaluation followed by the patient being able to perform bed mobility with stand by assist. She required verbal cues for proper hand placement and walker usage. She was able to perform all toileting ADLs on two occasions this morning with stand by assist only. She was able to ambulate over 300 feet continuously with use of front wheeled walker , gait belt, and stand by assistance. She was brought downstairs to the therapy gym where she performed the upper body ergometer x3 minutes forward and 3 minutes backward as well as the balance grid; however, she was unable to follow two step commands. The patient was then taken upstairs, again ambulating with her front wheeled walker, gait belt, and stand by assistance with occasional verbal cues for proper walker management. Per patient's wishes , she was placed in bed with bed alarm on. AUNDREA
--- NOTE | 2017-05-03 16:08 | PDOC(PROG) ---
Date and Time of Service: 05/03/2017, 1607 Interval History: No chest pain, shortness breath, nausea or vomiting, or abdominal pain. She states she had cream of wheat for breakfast along with cranberry juice. Objective : Data - Labs CBC and BMP: 05/02/17 05:33 05/03/17 04:12 Objective : Exam - General General Appearance: No Acute Distress, Cooperative - Eye Eye Exam: No Scleral Icterus - ENT ENT Exam: Mucous Membranes Moist - Respiratory Respiratory Exam: Clear to Auscultation - Bilaterally, Breathing Non Labored - Cardiovascular Cardiovascular Exam: RRR, No Murmur, No Clicks, No Gallops, No Rubs, No JVD - GI/Abdominal GI/Abdominal Exam: Normal Bowel Sounds, Non Tender, Non Distended, Soft - Extremities Extremities Exam: No Clubbing Present, No Edema Present, No Cyanosis Present - Neurological Neurological Exam: Alert, No Facial Droop, Speech Intact / Clear, Moves All Extremities Equally, Altered (Oriented to person, not to place, time or situation.) Assessment and Plan - Patient Problems (1) Acute urinary retention Current Visit: Yes Status: Acute Code(s): R33.8 - Other retention of urine (2) Abdominal pain Current Visit: Yes Status: Acute Code(s): R10.9 - Unspecified abdominal pain Qualifiers: Abdominal location: generalized Qualified Code(s): R10.84 - Generalized abdominal pain (3) Failure to thrive Current Visit: Yes Status: Acute Qualifiers: Failure to thrive age range: in adult Qualified Code(s): R62.7 - Adult failure to thrive (4) Dementia Current Visit: Yes Status: Acute Code(s): F03.90 - Unspecified dementia without behavioral disturbance Qualifiers: Dementia type: Alzheimer's disease Alzheimer's disease onset: late-onset Dementia behavioral disturbance: without behavioral disturbance Qualified Code (s): G30.1 - Alzheimer's disease with late onset; F02.80 - Dementia in other diseases classified elsewhere without behavioral disturbance (5) Diabetes mellitus Current Visit: Yes Status: Chronic Code(s): E11.9 - Type 2 diabetes mellitus without complications Qualifiers: Diabetes mellitus type: type 2 Diabetes mellitus complication status: without complication Diabetes mellitus skilled nursing insulin use: without skilled nursing use Qualified Code(s): E11.9 - Type 2 diabetes mellitus without complications (6) Hypertension Current Visit: Yes Status: Chronic Code(s): I10 - Essential (primary) hypertension Qualifiers: Hypertension type: essential hypertension Qualified Code(s): I10 - Essential (primary) hypertension - Assessment / Plan Additional Assessment/Plan Details: Overall, the patient does not have a safe social discharge. She is absolutely not a candidate to live on her own due to her advanced dementia. She would be at significant risk of causing self-harm with activities of daily living such as cooking. I think the plan to go to a detention his going to make the most sense and it sounds like [facility] will accept the patient for care tomorrow. Dr. Celestin will continue to be the patient's primary care physician there. No changes on medications at this time. Continue PT and OT.
--- NOTE | 2017-05-03 17:02 | PT.PROG ---
Progress Note Progress Note: S. Patient agreed to go to the therapy gym this afternoon. O. Patient ambulated 150 feet to the therapy gym where she used the nu-step x 10 minutes, sit to stands x 10 #2 box step ups x 10, marches, long arc quads, with 1# weight, x 10, minute drill 3x 1 minute. Patient performed tandem walk x 3 laps (with hand hold assist x 2). Patient ambulated 150 feet back to her room where she was left in bed with alarm and call light. A. Patient tolerated therapy well, she continues to struggle with weakness and balance deficits, She requires frequent verbal cues for safety during transfers and balance activities. patient would continue to benefit from skilled therapy at this time. P. Continue POC.
[2017-05-03] MEDS: LATANOPROST 0.005% EACH EYE SCH (20:15)
[2017-05-03] MEDS: EYE EACH EYE SCH (20:15)
[2017-05-04] MEDS: HEPARIN 5000 UNIT/1 ML SUBCUT SCH (03:15)
[2017-05-04 04:38] VITALS: RESP 18; O2SAT 97
[2017-05-04 07:17] VITALS: BP 175/88; TEMP 97.8
[2017-05-04] MEDS: POTASSIUM CHLORIDE 20 MEQ TAB PO SCH (08:32)
[2017-05-04] MEDS: AmLODIPine Tab 5 MG TABLET PO SCH (08:33)
[2017-05-04] MEDS: CARVEDILOL 6.25 MG TABLET PO SCH (08:33)
[2017-05-04] MEDS: Pantoprazole Inj 40 MG in Normal Saline Flush 10 ML IVP SCH (08:33)
--- NOTE | 2017-05-04 10:44 | DCSUMMARY ---
Hospitalization Summary Admit Date: 05/01/2017 Discharge Date: 05/04/17 Primary Diagnosis:: abdominal pain, resolved, acute urinary retention Hospital Course: This very pleasant 86-year-old female who has had increasing failure to thrive, worsening dementia, diabetes, hypertension, and the family brought her in was significant abdominal pain. There was some question of whether or not there might be a volvulus with swirling mesentery, but that was ruled out with surgical consultation. The patient's abdominal pain actually resolved after we found that she had urinary retention and we used a straight catheter and relieved it. We had PT and OT ordered. They saw the patient as well. She required frequent verbal cues for therapeutic interventions. The patient's daughter and the patient were agreeable to going to [facility]. We work towards that end, and the patient was accepted. Her hypertension, diabetes, and other chronic medical issues did not cause problems during the hospital stay. I will note that the patient has very well controlled diabetes mellitus type II , probably diet-controlled at this point with hemoglobin A1c less than 6 so given the risks of hypoglycemia on glipizide therapy, I stopped oral hypoglycemic medications. Today, no completes of chest pain, shortness breath, nausea or vomiting or abdominal pain. CODE STATUS is DO NOT RESUSCITATE. I did have a special request to Dr. Wei remain the patient's physician. She will continue to do that. She will have to see the patient in the office so I put an order in on admission orders to arrange for a facility history and physical exam to be done. Assessment and Plan: 1. As per discharge assessments noted 2. Disposition: Patient is discharged to [facility] 3. Condition on discharge, stable and improved. 4. Diet: regular diet 5. Activities: resume normal activities 6. Follow-Up: 1. Dr. Wei in 72 hours 2. 7. Medications at the Time of Discharge: Home Medications 3 Medication Instructions Recorded Confirmed Type Latanoprost [Xalatan] 1 drp OP DAILY #3 bottle 10/15/13 05/01/17 History Amlodipine Besylate 5 mg PO DAILY #90 tab 07/30/16 05/01/17 Rx Carvedilol 6.25 mg PO BID #180 tab 07/30/16 05/01/17 Rx Potassium Chloride [Klor-Con 10] 10 meq PO DAILY #90 tab 07/30/16 05/01/17 Rx Quinapril HCl 20 mg PO DAILY #90 tab 10/29/16 05/01/17 Rx Acetaminophen [Tylenol] 650 mg PO Q6H PRN tab 05/04/17 Rx 8. Time, care, counseling and coordination of care for this discharge is less than 30 minutes. Exam - Vitals Vital Signs: Vital Signs Temperature 97.8 F Temperature Source Temporal Artery Scan Pulse Rate [Pulse Oximeter] 81 Pulse Rate [Pulse Oximeter 81 Bilateral Radial] Pulse Rate 68 Respiratory Rate 18 Blood Pressure [Right Arm] 175/88 Blood Pressure [Left Arm] 162/77 Blood Pressure 163/87 Pulse Ox 97 Oxygen Delivery Method Room Air Height 5 ft Weight 103 lb 3.2 oz - Eye Eye Exam: POSITIVE: No Scleral Icterus - ENT ENT Exam: POSITIVE: Mucous Membranes Moist - Respiratory Respiratory Exam: POSITIVE: Clear to Auscultation - Bilaterally, Breathing Non Labored - Cardiovascular Cardiovascular Exam: POSITIVE: RRR, No Murmur, No Clicks, No Gallops, No Rubs, No JVD - GI/Abdominal GI/Abdominal Exam: POSITIVE: Normal Bowel Sounds, Non Tender, Non Distended, Soft - Extremities Extremities Exam: POSITIVE: No Clubbing Present, No Edema Present, No Cyanosis Present - Neurological Neurological Exam: POSITIVE: Alert, No Facial Droop, Speech Intact / Clear, Moves All Extremities Equally - Psychiatric Psychiatric Exam: POSITIVE: Normal Affect, Normal Mood Data Peritnent Studies: 05/02/17 05/03/17 05:33 04:12 WBC 4.41 L Hgb 13.0 Hct 39.6 Plt Count 102 L Neut % (Auto) 61.0 Sodium 142 Potassium 4.8 D Chloride 107 Carbon Dioxide 26 Anion Gap 9 BUN 8 Creatinine 0.6 Glucose 121 H Calcium 9.3 Patient Problems - Patient Problem List (1) Acute urinary retention Current Visit: Yes Status: Acute Code(s): R33.8 - Other retention of urine Category: Medical (2) Abdominal pain Current Visit: Yes Status: Acute Code(s): R10.9 - Unspecified abdominal pain Qualifiers: Abdominal location: generalized Qualified Code(s): R10.84 - Generalized abdominal pain Category: Medical (3) Failure to thrive Current Visit: Yes Status: Acute Qualifiers: Failure to thrive age range: in adult Qualified Code(s): R62.7 - Adult failure to thrive Category: Medical (4) Dementia Current Visit: Yes Status: Acute Code(s): F03.90 - Unspecified dementia without behavioral disturbance Qualifiers: Dementia type: Alzheimer's disease Alzheimer's disease onset: late-onset Dementia behavioral disturbance: without behavioral disturbance Qualified Code (s): G30.1 - Alzheimer's disease with late onset; F02.80 - Dementia in other diseases classified elsewhere without behavioral disturbance Category: Medical (5) Diabetes mellitus Current Visit: Yes Status: Chronic Comment: Continue current meds. Code(s) : E11.9 - Type 2 diabetes mellitus without complications Qualifiers: Diabetes mellitus type: type 2 Diabetes mellitus complication status: without complication Diabetes mellitus intermediate insulin use: without intermediate use Qualified Code(s): E11.9 - Type 2 diabetes mellitus without complications Category: Medical (6) Hypertension Current Visit: Yes Status: Chronic Code(s): I10 - Essential (primary) hypertension Qualifiers: Hypertension type: essential hypertension Qualified Code(s): I10 - Essential (primary) hypertension Category: Medical (7) Thrombocytopenia Current Visit: Yes Status: Acute Comment: Unclear etiology. I will defer workup to primary care physician and discuss with her. Could be idiopathic. No petechiae noted. Code(s): D69.6 - Thrombocytopenia, unspecified Category : Medical
--- NOTE | 2017-05-06 10:18 | OTI REPORT ---
Thank you for the referral of Cassandra Mera. She was seen on 05/03/17 for an occupational therapy inpatient evaluation secondary to weakness. SUBJECTIVE: The patient is an 86-year-old female who is being seen today secondary to a decline in function and her ability to take care of herself. She reports that she has been more confused. The patient does live at [facility] by herself. She is typically able to dress herself; however, the patient's [id number] helps her quite immensely with a lot of her daily tasks including distribution of her medications, cooking, cleaning, laundry, and grocery shopping, etc. The patient does not drive. Per reports, the patient is having increased amounts of confusion and the patient admits that she has a lot of memory problems. Basically she states she just stays in her apartment and does nothing during the day other than sitting in her living room watching TV. The patient reports she does not have any swallowing problems; however, her history may be slightly skewed. The patient reports she has had several falls in her apartment. PAST MEDICAL HISTORY: Past medical history can be found in the patient's medical record. OBJECTIVE FINDINGS: Range of motion: The patient has approximately 110 degrees of shoulder flexion on the right and 125 degrees on the left. She has range of motion that is within functional limits for elbow and wrist range of motion. Strength: Right shoulder has 3/5 for strength for flexion and abduction. She demonstrates with possible rotator cuff involvement. On the left her strength is 3+/5. Strength for elbow flexion/extension is 4/5. Wrist flexion/extension is 4/5. Activities of daily living: The patient is able to don her shirt with increased time. The patient is able to demonstrate donning and doffing her socks independently while sitting edge of bed. Bed mobility: The patient was able to come from supine to sit independently. Transfers: The patient was able to come from sit to stand with contact guard assist and use a wheeled walker to transfer to the chair. Cognition: The patient participated in the [place] Cognitive Assessment (MoCA) and her scores are as follows: Visuospatial/Executive: 1/5 Namin/3 Attention: 2/6 Language: 2/3 Abstraction: 0/2 Delayed recall: 0/5 Orientation: 4/6 The patient had a total score of 12/30. This places the patient right at the lower level of the MODERATE cognitive impairment range. She did have a lot of processing difficulties today and poor memory. She had difficulty thinking concretely in the abstraction realm and could not think of any similarities with the choices given. ASSESSMENT: The patient is demonstrating on the lower level of the MODERATE cognitive impairment level. At this point she is basically getting assistance with almost all of her daily needs besides her dressing tasks. The OT did talk with Candida and it sounds like the patient will more than likely go to the [facility] for 24-hour care which is appropriate for her cognitive level at this point in time. Problem List: Decreased cognition Decreased upper extremity weakness Decreased safety awareness Short-Term Goals: To be met by discharge from inpatient: Patient will increase upper extremity strength to 4+/5. Patient will participate in a Cognitive Performance Test in order to address her level of ability per the [place] Cognitive Levels. Patient will be able to dress self including obtaining clothes and keeping balance and maintaining good safety. Patient will be safe with all functional transfers including shower and toilet transfers. Long-Term Goals: To be met following discharge from inpatient: Patient will be discharged to the [facility] with 24-hour care and will participate in therapy to improve her overall functioning and to improve her strength. TREATMENT PLAN: Patient will be seen B.I.D during the week and one time per day over the weekend as an inpatient to address the above goals and objectives. INITIAL TREATMENT: Treatment today consisted of the initial evaluation activities only. AUNDREA
--- NOTE | 2017-05-06 12:03 | OT PM DAY ---
Diagnosis : Weakness PM - Occupational Therapy S: The patient was in good spirits. She had no new complaints at this time. O: The patient was seen in the therapy gym where she performed therapeutic exercises and functional activities including upper body ergometer x6 minutes to increase activity tolerance followed by hand exercises at the hand table with putty, power web, rice, and clothespins, all x10 minutes to increase her fine motor strength and overall dexterity. A: The patient may continue to benefit from therapy to increase her overall activity tolerance and strength. We will continue to monitor her cognitive ability as her short term memory has decreased. P: Continue seeing patient BID during the week and one time per day over the weekend for upper extremity strengthening, ADLs, and overall functional mobility. AUNDREA
== END 2017-05-04 10:47 | DRG 639 ==
LOC: ER 08:16 → MED/SURG 11:43
PROVIDERS: ADMIT Family Medicine; ATTEND Family Medicine

== ENCOUNTER 2018-06-14 08:50 | Inpatient (IN) ==
[2018-06-14] MEDS ORDERED: Sodium Chloride 0.9% 1,000 ML PRIMARY IV ONE (09:24)
[2018-06-14] MEDS ORDERED: LIDOCAINE HCL 2 % 10 ML JELLY URO-JECT TOPICAL PRN (09:26)
[2018-06-14 09:31] LABS: BASOPHILS # (AUTO) 0.01 10*3/UL; BASOPHILS % (AUTO) 0.1 % (0-1); EOSINOPHILS # (AUTO) 0 10*3/UL; EOSINOPHILS % (AUTO) 0 % (0-8); Hematocrit [HCT] 36.3 % (37.0-47.0); Hemoglobin [HGB] 12.9 g/dL (12.0-16.0); LYMPHOCYTES # (AUTO) 0.89 10*3/uL; MEAN CORPUSCULAR HEMOGLOBIN 32.2 PG (27-31); MEAN CORPUSCULAR HGB CONC 35.5 g/dL (33-37); MEAN CORPUSCULAR VOLUME 90.5 FL (81-99); MEAN PLATELET VOLUME 9.8 FL (7.4-12.2); MONOCYTES # (AUTO) 0.59 10*3/UL (0.3-0.8); MONOCYTES % (AUTO) 6.6 % (5-15); NEUTROPHILS # (AUTO) 7.43 10*3/UL; NEUTROPHILS % (AUTO) 83.1 % (50-80); RED BLOOD COUNT 4.01 10^6/uL (4.20-5.40)
[2018-06-14 09:40] LABS: PLATELET MORPHOLOGY COMMENT NORMAL MORPHOLOGY (NORM); RBC MORPHOLOGY COMMENT NORMAL MORPHOLOGY (NORM); WBC MORPHOLOGY COMMENT NORMAL MORPHOLOGY (NORM)
[2018-06-14 09:41] LABS: BLOOD UREA NITROGEN 21 mg/dL (7-22)
[2018-06-14 09:53] LABS: BILIRUBIN,URINE NEGATIVE (NEG); CLARITY,URINE Slightly Cloudy (CLEAR); COLOR,URINE YELLOW (Y); GLUCOSE, URINE (UA) NEGATIVE (NEG); OCCULT BLOOD,URINE NEGATIVE (NEG); PH,URINE 6.5 (5.0-8.5); PROTEIN,URINE TRACE mg/dl (NEG); UROBILINOGEN,URINE 0.2 EU/dL (0.2)
--- NOTE | 2018-06-14 09:53 | DI ---
AP CHEST X-RAY, 06/14/2018 9:24 AM : Clinical History: Trauma. Previous Exam: 01/08/2018. Soft Tissues: No acute soft tissue abnormality. There is a dual-chamber pacemaker present with both l tom in the appropriate position. Bones: Osteoporosis. No acute fractures noted. Heart: Normal heart. Lungs: No infiltrates. No pneumothorax. Lungs are markedly hyperinflated in this patient probably has underlying COPD. Effusion(s): None. Mediastinum: Pulmonary arterial hypertension is suspected. Nodules: No pulmonary nodules. Readin. No pneumothorax or pulmonary contusion. This patient probably has COPD. 2. Osteoporosis.
[2018-06-14 09:58] LABS: URINE SAMPLE TYPE CATH SPECIMEN
--- NOTE | 2018-06-14 09:58 | DI ---
AP PELVIS and RIGHT HIP, 06/14/2018 9:36 AM: Clinical History: Injury. The patient fell. Right hip pain. Previous Exam: None at this facility. Hip View: AP and frog lateral. AP Pelvis: Soft Tissues: Normal. Bony Pelvis: Osteoporosis. Comminuted fracture of the right superior pubic ramus extending to the par asymphyseal region with a nondisplaced fracture of the inferior pubic ramus. Sacrum and SI Joints: There is no diastases of the SI joints but there is a step off along the superi or and lateral margin of the right third neural foramen at the level of the inferior margin of the SI joint. This is suspicious for a fracture through the right sacral wing. Symphysis Pubis: Intact. Right Hip: Femoral Head/Neck Junction: No definite fracture noted. Acetabulum: Intact Hip Joint Space: Severe arthritic degenerative change. Readin. Comminuted fracture of the right superior pubic ramus extending toward the parasymphyseal region with a nondisplaced fracture of the right inferior pubic ramus. A right sacral wing fracture is suspe cted. 2. Severe osteoporosis. 3. 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
[2018-06-14 09:59] LABS: BACTERIA,URINE RARE; RBC,URINE 0-1 /hpf
--- NOTE | 2018-06-14 10:48 | PDOC ---
Fall HPI - General Chief Complaint: Fall Stated Complaint: found on floor on her back, hip pain Date Seen by Provider: 06/14/18 Time Seen by Provider: 09:00 Source: POSITIVE: Patient, EMS, [facility] records Exam Limitations: POSITIVE: No limitations Nurse's Notes Reviewed & Considered: Yes EMS Report Reviewed & Considered: Verbal - History of Present Illness Initial Comments: The patient is an 87-year-old female who is brought to the emergency department by ambulance from the custodial. She was apparently found on the floor next to her bed. The patient states that she does not remember exactly what happened. She does have a history of dementia however she thinks it's possible she may have passed out next to her bed. She just remembers waking up on the floor. She is complaining primarily of right sided hip and groin pain. She currently denies headache, neck pain or chest pain. She does have a pacemaker. She does not take any blood thinner medications. Her daughter reports that she is very sensitive to narcotics and sedatives. The patient did have some abdominal tenderness per EMS. She does not have any prior history of lower extremity surgeries. She normally walks either independently or with a walker. Have you received a tetanus shot in the past 10 years?: Unknown - Patient Home Medications Home Medications: Home Medications Amlodipine Besylate 5 mg PO DAILY #90 tab 07/30/16 Carvedilol 6.25 mg PO BID #180 tab 07/30/16 Potassium Chloride [Klor-Con 10] 10 meq PO DAILY #90 tab 07/30/16 Quinapril HCl 20 mg PO DAILY #90 tab 10/29/16 Acetaminophen [Tylenol] 650 mg PO Q6H PRN tab 05/04/17 diphenoxylate-atropine 2.5 mg-0.025 mg tablet 1 tab PO QDAY PRN tab 12/09/17 lactase 3,000 unit tablet 3,000 unit PO TID 12/09/17 Ciclopirox/Urea/Camph/Men/Euc [Ciclopirox 8% Treatment Kit] 1 applic TOPICAL WEEKLY 06/14/18 - Patient Allergies Allergies/Adverse Reactions: Allergies Allergy/AdvReac Type Severity Reaction Status Date / Time Penicillins Allergy Intermediate rash on Verified 06/14/18 08:59 legs aspirin Allergy VOMITING Verified 06/14/18 08:59 captopril AdvReac Intermediate diarrhea Verified 06/14/18 08:59 hydrochlorothiazide AdvReac Intermediate diarrhea Verified 06/14/18 08:59 indapamide AdvReac Intermediate feel Verified 06/14/18 08:59 terrible hydrocodone AdvReac NOT Verified 06/14/18 08:59 APPLICABLE Past Medical History - heen HEENT History: Glaucoma, Dental Disorders, Dentures/Partials Additional HEENT History: upper denture Cardiovascular History: Hypertension, Pacemaker, Aneurysm, Other (please comment) Additional Cardiovasular History: had aortic aneurysm repair, pacemaker Respiratory History: Denies History Gastrointestinal History: Irritable Bowel Syndrome, Peptic Ulcer Disease Additional Gastrointestinal History: Appendectomy Genitourinary History: Denies History Endocrine History: Denies History Musculoskeletal History: Other (please comment) Prosthesis or Implant: No Additional Musculoskeletal History: CHRONIC BILAT FOOT PAIN, neuropathy in legs/feet Neurological History: Dementia Blood Disorders: Denies History Psychiatric History: Denies History History of Sexually Transmitted Diseases: No Female Reproductive History: Hysterectomy Obstetrical History: Denies History Cancer History: Skin Cancer Treatment / Date(s) of Treatment: FACE In Past Year Been Physically Harmed or Verbally Threatened: No History of MDRO: No History of Other Communicable Diseases: No Tobacco Use: Never Smoker Alcohol Use: None In the Past 12 Months, Have Used or Abuse Any Substance: None Previous Surgical History: Yes Type / Date of Surgery: AORTIC ANEURYSM REPAIR 8 YRS AGO, CATARACTS, HYSTERECTOMY, APPENDECTOMY/ PACEMAKER/TONSILS/LEFT 2ND TOE EXCISION Anesthesia Reactions: Yes (VERY SENSITIVE TO NARCOTICS/COULD NOT WAKE UP) Malignant Hyperthermia: No Significant Family History: Diabetes Past Medical History Reviewed: Reviewed - No Changes ROS - Limitations ROS Limitations: No Limitations (She does have some baseline dementia however she answers questions appropriately here) Constitution: DENIES: Fever Cardiovascular: DENIES: Chest Pain Respiratory: REPORTS: Other (No chest wall pain). DENIES: Shortness Of Breath Neurological: DENIES: Headache, Numbness Gastrointestinal: REPORTS: Abdominal Pain. DENIES: Nausea, Vomitting Musculoskeletal: REPORTS: Other (Right hip and groin pain) Genitourinary: REPORTS: Denies Symptoms Eyes: REPORTS: Denies Symptoms ENT: REPORTS: Denies Symptoms Skin: DENIES: Rash Fall Physical Exam - General Appearance General Appearance: POSITIVE: Alert, Cooperative, No Acute Distress - HEENT HEENT: POSITIVE: Head Inspection Nml (No visible trauma to the scalp or face), Eyes Inspection Nml, Ears Inspection Nml, Nose Inspection Nml, Dry Mucous Membranes - Neck Neck: POSITIVE: Non Tender, Painless ROM, Trachea Midline - Respiratory / CVS Respiratory / CVS: POSITIVE: Chest Non Tender, Breath Sounds Normal, No Respiratory Distress, Heart Sounds Normal, Regular Rate/Rhythm Peripheral Pulses: Dorsalis-pedis (R): 2+ - Abdomen Abdomen: Soft: (All Quadrants), Normal Bowel Sounds: (All Quadrants) Additional Abdominal Details: She does have some mild diffuse abdominal tenderness, some mild tenderness to palpation of her pelvis with no obvious instability - Neuro / Psych Neuro / Psych: POSITIVE: 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 Chest x-ray shows findings consistent with COPD with no acute findings per radiologist. CT the abdomen and pelvis shows the inferior and superior pubic ramus fractures as well as a nondisplaced sacral fracture. There is an associated large retroperitoneal hematoma per radiologist. Lab Results Reviewed by Me: Yes CBC and BMP: 06/14/18 12:01 06/14/18 09:00 Lab Results:: Laboratory Results 06/14/18 06/14/18 06/14/18 09:00 09:00 09:00 WBC 8.95 RBC 4.01 L Hgb 12.9 Hct 36.3 L MCV 90.5 MCH 32.2 H MCHC 35.5 RDW Std Deviation 43.1 RDW Coeff of Christy 13.3 Plt Count 93 L MPV 9.8 Immature Gran % (Auto) 0.3 Neut % (Auto) 83.1 H Lymph % (Auto) 9.9 L Faulk % (Auto) 6.6 Eos % (Auto) 0 Baso % (Auto) 0.1 Immature Gran # (Auto) 0.03 Neut # (Auto) 7.43 Lymph # (Auto) 0.89 Faulk # (Auto) 0.59 Eos # (Auto) 0 Baso # (Auto) 0.01 WBC Morphology Comment Normal morphology Plt Morphology Comment Normal morphology RBC Morph Comment Normal morphology PT 10.7 INR 1.05 Sodium 137 Potassium 4.2 Chloride 101 Carbon Dioxide 26 Anion Gap 10 BUN 21 Creatinine 0.5 BUN/Creatinine Ratio 42.00 H Glucose 171 H Calculated Osmolality 290.0 Calcium 9.7 Magnesium 2.0 Total Bilirubin 0.8 AST 40 H ALT 18 Alkaline Phosphatase 88 Total Creatine Kinase Troponin I C-Reactive Protein 1.7 H Total Protein 6.9 Albumin 4.0 Globulin 2.9 Albumin/Globulin Ratio 1.30 TSH Ur Collection Type Urine Color Urine Clarity Urine pH Ur Specific Cheraw Urine Protein Urine Glucose (UA) Urine Ketones Urine Occult Blood Urine Nitrate Urine Bilirubin Urine Urobilinogen Ur Leukocyte Esterase Urine RBC Urine WBC Ur Squamous Epith Cells Ur Renal Epithelial Cell Urine Crystals Urine Bacteria Urine Casts Urine Mucus Urine Trichomonas Urine Yeast Ur Culture Indicated? Blood Type Antibody Screen Crossmatch 06/14/18 06/14/18 06/14/18 09:00 09:00 09:00 WBC RBC Hgb Hct MCV MCH MCHC RDW Std Deviation RDW Coeff of Christy Plt Count MPV Immature Gran % (Auto) Neut % (Auto) Lymph % (Auto) Faulk % (Auto) Eos % (Auto) Baso % (Auto) Immature Gran # (Auto) Neut # (Auto) Lymph # (Auto) Faulk # (Auto) Eos # (Auto) Baso # (Auto) WBC Morphology Comment Plt Morphology Comment RBC Morph Comment PT INR Sodium Potassium Chloride Carbon Dioxide Anion Gap BUN Creatinine BUN/Creatinine Ratio Glucose Calculated Osmolality Calcium Magnesium Total Bilirubin AST ALT Alkaline Phosphatase Total Creatine Kinase 141 H Troponin I < 0.012 C-Reactive Protein Total Protein Albumin Globulin Albumin/Globulin Ratio TSH 1.91 Ur Collection Type Urine Color Urine Clarity Urine pH Ur Specific [place] Urine Protein Urine Glucose (UA) Urine Ketones Urine Occult Blood Urine Nitrate Urine Bilirubin Urine Urobilinogen Ur Leukocyte Esterase Urine RBC Urine WBC Ur Squamous Epith Cells Ur Renal Epithelial Cell Urine Crystals Urine Bacteria Urine Casts Urine Mucus Urine Trichomonas Urine Yeast Ur Culture Indicated? Blood Type Antibody Screen Crossmatch 06/14/18 06/14/18 06/14/18 09:42 11:15 12:01 WBC 7.56 RBC 3.51 L Hgb 10.8 L Hct 31.8 L MCV 90.6 MCH 30.8 MCHC 34.0 RDW Std Deviation 42.3 RDW Coeff of Christy 13.2 Plt Count 101 L MPV 9.0 Immature Gran % (Auto) 0.3 Neut % (Auto) 75.7 Lymph % (Auto) 13.9 Faulk % (Auto) 10.1 Eos % (Auto) 0 Baso % (Auto) 0 Immature Gran # (Auto) 0.02 Neut # (Auto) 5.73 Lymph # (Auto) 1.05 Faulk # (Auto) 0.76 Eos # (Auto) 0 Baso # (Auto) 0 WBC Morphology Comment Normal morphology Plt Morphology Comment Normal morphology RBC Morph Comment Normal morphology PT INR Sodium Potassium Chloride Carbon Dioxide Anion Gap BUN Creatinine BUN/Creatinine Ratio Glucose Calculated Osmolality Calcium Magnesium Total Bilirubin AST ALT Alkaline Phosphatase Total Creatine Kinase Troponin I C-Reactive Protein Total Protein Albumin Globulin Albumin/Globulin Ratio TSH Ur Collection Type Cath specimen Urine Color Yellow Urine Clarity Slightly cloudy Urine pH 6.5 Ur Specific Cheraw 1.015 Urine Protein Trace Urine Glucose (UA) Negative Urine Ketones Negative Urine Occult Blood Negative Urine Nitrate Positive A Urine Bilirubin Negative Urine Urobilinogen 0.2 Ur Leukocyte Esterase Small Urine RBC 0-1 Urine WBC 10-20 Ur Squamous Epith Cells None Ur Renal Epithelial Cell None Urine Crystals None Urine Bacteria Rare Urine Casts None Urine Mucus Rare Urine Trichomonas None Urine Yeast None Ur Culture Indicated? Culture set Blood Type O POSITIVE Antibody Screen Negative Crossmatch See Detail EKG Interpreted/Reviewed By Me:: Yes EKG Interpretation:: POSITIVE: Normal Sinus Rhythm, Normal Rate, Normal QRS, Normal ST/T, Other (She does have 1 PVC noted) - Patient's Progress MDM / ED Course: The patient is brought to the emergency department after she was found lying next to her bed at the custodial. It is unclear whether she had a syncopal event or whether she just fell. She does have some baseline dementia. Her EKG shows normal sinus rhythm with occasional PVC. Initial portable pelvis x-ray does show a comminuted superior and inferior pubic ramus fracture with possible sacral injury per radiologist. Her chest x-ray shows findings consistent with COPD and is otherwise without acute cardiopulmonary findings per radiologist. Her initial troponin is normal. CBC reveals a hemoglobin of 12 with a normal white count. Her CRP is mildly elevated at 1.7. Urinalysis from a catheter UA shows 10-20 WBCs and positive nitrite. CT scan of the abdomen and pelvis confirms the superior and inferior pubic ramus fractures as well as a nondisplaced sacral fracture. She also has a large retroperitoneal hematoma likely related to her current fractures per radiologist. I did discuss these findings with the patient and her daughter. I also discussed the patient with Dr. Stein. Dr. Zee recommended that the patient be at least considered for aggressive treatment measures including surgical versus embolization type pr ocedures to stabilize the retroperitoneal bleeding. I did discuss this at length with the patient's daughter as well as the patient. The patient herself has severe short-term memory deficits and did not appear to understand very well. The patient's daughter discussed options with her brother and the decision was made that she should not be considered for the more aggressive treatment measures at this point. The patient was typed and crossed for 2 units of blood secondary to the large retroperitoneal hematoma. A repeat hemoglobin had dropped from 12.9 down to 10.8 4 1/2 hours post fall. She remained normotensive with pulse in the 90s here in the emergency department. Her oxygen saturations did drop slightly and she was placed on oxygen per nasal cannula. At this point the patient is being admitted per Dr. Stein. She does have evidence of urinary tract infection and also received Rocephin 1 g IV. - Consult Counseled: POSITIVE: Patient, Family, RE: Lab Results, RE: Radiology Results, RE: DX Patient Care Time - Estimated PCT Patient Care Time (In Minutes): 55 Vital Signs - Recent Vital Signs Vital Signs: Vital Signs (Last 8 hours) Temp Pulse Resp BP Pulse Ox 06/14/18 09:06 97.1 F 97 16 157/98 97 - VS Reviewed Vital Signs Reviewed: Yes Discharge Clinical Impression: Pubic ramus fracture, UTI (urinary tract infection), Retroperitoneal hematoma Discharge Disposition: Admit to Inpatient Condition: Serious Date Decision to Admit to Inpatient: 06/14/18 Time Decision to Admit to Inpatient: 12:20
[2018-06-14] MEDS ORDERED: cefTRIAXone Inj 1 GM in Sodium Chloride 0.9% 100 ML IV ONE (11:55)
--- NOTE | 2018-06-14 12:03 | DI ---
CT ABDOMEN SCAN WITH IV CONTRAST, 06/14/2018 9:27 AM : Clinical History: Abdominal pain after a fall. The patient has multiple pelvic fractures. Previous Exam: 05/01/2017. IV Contrast: 70 mL of Isovue 300. Oral Contrast: No oral contrast ordered. Rectal Contrast: No rectal contrast ordered. Lungs: No infiltrate or effusion. Liver: Normal. Gallbladder: The gallbladder is contracted and there is a calcified gallstone measuring 8 x 12 x 5 mm without evidence of acute cholecystitis. Adrenal Glands: Normal. Spleen: Normal. Pancreas: Normal. Kidneys: Normal size, shape, position and contour. No hydronephrosis or hydroureter. No renal or uret eral calculi. Masses: None. Lymph Nodes: Normal. Ascites: No ascites. Free Air: None. Spine: No fractures of the lower thoracic and the lumbar spine. Osteoporosis. READIN. Cholelithiasis without evidence of acute cholecystitis. 2. [address]opor[address]. CT PELVIS SCAN WITH IV CONTRAST, 06/14/2018 9:27 AM: Clinical History: See above. Previous Exam: 05/01/2017. Contrast: Same bolus used for CT scans of the abdomen. Masses: There is an 8 cm mass surrounding the decompressed bladder. A second right lower quadrant mas s deep to the right rectus abdominis muscle is present and this measures approximately 7 x 7 x 7 cm. A mass is also present involving both inward toll operator internus muscles. The estimated volume of these 3 mass es is in the range between 500-750 mL and are consistent with retroperitoneal hematomas. These hemato mas most likely arose from the pelvic fractures and dissected into the obturator internus muscles, in to the potential space around the bladder, and extending anteriorly and superiorly on the right side into the potential space between the peritoneum and the deep surface of the rectus abdominis muscle. The right rectus abdominis muscle is slightly larger than the left but this was present on the prior exam and has not changed. This makes a rectus hematoma unlikely. Ascites: No free intraperitoneal fluid is identified. Free Air: None. Lymph Nodes: No adenopathy. Appendix: Not identified. No cecal or right lower quadrant inflammatory mass, but there is extrinsic compression on the anterior wall of the cecum secondary to the retroperitoneal hematoma deep to the r ight rectus muscle.. Small Bowel: Loops of small bowel are displaced out of the pelvis by the retroperitoneal hematoma. Th e ileocecal valve is not identified. Colon: Except for the extrinsic compression on the cecum, the colon is normal. Bladder: The retroperitoneal hematoma surrounds the bladder. Uterus: Status post hysterectomy. Ovaries: Not visualized. Hernias: None. Bony Pelvis: There is diffuse osteoporosis. There is a fracture through the right sacral wing adjacen t to the right SI joint and this represents avulsion of the entire cortex of the right sacral wing ad jacent to the SI joint. The SI joint is intact. Comminuted fractures are present in the right superio r pubic ramus extending toward the symphysis pubis as well as in the inferior pubic ramus. Both hips show extensive bony spurring with severe degenerative arthritic change. READIN. Severe osteoporosis with comminuted fractures of the right superior and inferior pubic rami with extension of the superior pubic ramus fracture through the parasymphyseal region. There is a fracture coursing parallel with the right SI joint involving the cortex of the right sacral wing adjacent to the SI joint. 2. Retroperitoneal pelvic hematomas involving the pelvic floor bilaterally and the inward toll operator internus muscles with extension of the retroperitoneal hematoma anteriorly and superiorly on the right side i nto the potential space between the peritoneum and the rectus abdominis muscle fascia. The retroperit whelan hematoma is also compressing the bladder. The estimated blood loss in the pelvis is between 500 -750 mL. There is no rectus abdominis muscle hematoma. 3. No free fluid is seen in the pelvis.
[2018-06-14 12:04] LABS: BASOPHILS # (AUTO) 0 10*3/UL; BASOPHILS % (AUTO) 0 % (0-1); EOSINOPHILS # (AUTO) 0 10*3/UL; EOSINOPHILS % (AUTO) 0 % (0-8); Hematocrit [HCT] 31.8 % (37.0-47.0); Hemoglobin [HGB] 10.8 g/dL (12.0-16.0); LYMPHOCYTES # (AUTO) 1.05 10*3/uL; MEAN CORPUSCULAR HEMOGLOBIN 30.8 PG (27-31); MEAN CORPUSCULAR VOLUME 90.6 FL (81-99); MONOCYTES # (AUTO) 0.76 10*3/UL (0.3-0.8); MONOCYTES % (AUTO) 10.1 % (5-15); NEUTROPHILS # (AUTO) 5.73 10*3/UL; NEUTROPHILS % (AUTO) 75.7 % (50-80); RED BLOOD COUNT 3.51 10^6/uL (4.20-5.40)
[2018-06-14 12:06] LABS: PLATELET MORPHOLOGY COMMENT NORMAL MORPHOLOGY (NORM); RBC MORPHOLOGY COMMENT NORMAL MORPHOLOGY (NORM); WBC MORPHOLOGY COMMENT NORMAL MORPHOLOGY (NORM)
[2018-06-14] MEDS ORDERED: Acetaminophen 1000mg Inj 1,000 MG/100 ML VIAL IV PRN (12:17)
[2018-06-14] MEDS ORDERED: LIDOCAINE W/ SODIUM BICARB 0.5 ML SYR SUBD PRN (12:49)
[2018-06-14] MEDS ORDERED: DOCUSATE 100 MG CAPSULE PO PRN (12:49)
[2018-06-14] MEDS ORDERED: CALCIUM CARBONATE 500 MG (TUMS) CHEWABLE TABLET PO PRN (12:49)
[2018-06-14] MEDS ORDERED: HYDROcodone-APAP 5 MG -325 MG TABLET PO PRN (12:49)
[2018-06-14] MEDS ORDERED: ONDANSETRON 4 MG/2 ML VIAL IVP PRN (12:49)
--- NOTE | 2018-06-14 15:48 | PDOC ---
HPI - History of Present Illness Date of Service: 06/14/18 Time of Service: 15:43 Chief Complaint: fall History of Present Illness: This is a pleasant but demented 87 YO female that resides in [facility] who was apparently found down by her bed today. She was sent to the ER for evaluation and found to have a right sacral fracture and a right superior and inferior pelvic rami fracture. The patient also had signs of retroperitoneal hematoma development and an estimate that the patient has already lost 500-750 mL of blood. The patient cannot provide me any history, has no recall of events. She denies pain, but then complains of pain with right abdominal palpation. She has a pacemaker and thus far has normal blood pressures and does not show signs of circulatory shock. I spoke at bedside with the patient's daughter, and she feels, along with her brother, that surgery or arterioembolization for a retroperitoneal bleed would be too aggressive, hard on the patient to understand. She asks me to consider blood transfusions if necessary and to treat conservatively and to treat symptoms of pain and discomfort. The patient had a urine sample in the ER that was possibly suggestive of a urinary tract infection and the patient was placed on antibiotics. Past Medical History Medical History: 1. Hypertension. 2. Diabetes. 3. Pacemaker. 4. Dementia, advanced. 5. Hyperlipidemia, on statin therapy. 6. Coronary artery disease. 7. Type II diabetes. 8. Diverticulosis. 9. Glaucoma Surgical History: 1. Appendectomy. 2. Repair abdominal aortic aneurysm. 3. History of breast biopsy. 4. Cardiac pacemaker insertion. 5. Status post hysterectomy Family History: Reviewed an Not Pertinent Pertinent Family History: There is dementia and heart disease in the family per the patient's daughter. Past Social History: Patient does not smoke or drink. She had 5 children, her daughter, present today, is her power of assistant city attorney. three children are in group homes due to mental retardation and the daughter is their guardian. The patient is at [facility]. Tobacco Use: Never Smoker In the Past 12 Months, Have Used or Abuse Any of the Following Substance: None Alcohol Use: None Medication / Allergies Home Medications: Home Medications Medication Instructions Recorded Confirmed Type Amlodipine Besylate 5 mg PO DAILY #90 tab 07/30/16 06/14/18 Rx Carvedilol 6.25 mg PO BID #180 tab 07/30/16 06/14/18 Rx Potassium Chloride [Klor-Con 10] 10 meq PO DAILY #90 tab 07/30/16 06/14/18 Rx Quinapril HCl 20 mg PO DAILY #90 tab 10/29/16 06/14/18 Rx Acetaminophen [Tylenol] 650 mg PO Q6H PRN tab 05/04/17 06/14/18 Rx diphenoxylate-atropine 2.5 1 tab PO QDAY PRN tab 12/09/17 06/14/18 History mg-0.025 mg tablet lactase 3,000 unit tablet 3,000 unit PO TID 12/09/17 06/14/18 History Ciclopirox/Urea/Camph/Men/Euc 1 applic TOPICAL WEEKLY 06/14/18 06/14/18 History [Ciclopirox 8% Treatment Kit] Allergies/Adverse Reactions: Allergies Allergy/AdvReac Type Severity Reaction Status Date / Time Penicillins Allergy Intermediate rash on Verified 06/14/18 08:59 legs aspirin Allergy VOMITING Verified 06/14/18 08:59 captopril AdvReac Intermediate diarrhea Verified 06/14/18 08:59 hydrochlorothiazide AdvReac Intermediate diarrhea Verified 06/14/18 08:59 indapamide AdvReac Intermediate feel Verified 06/14/18 08:59 terrible hydrocodone AdvReac NOT Verified 06/14/18 08:59 APPLICABLE Review of Systems - Review of Systems ROS Unobtainable: Due to Mental Status (due to dementia.) Exam - Vitals Vital Signs: Vital Signs Temperature 98.4 F Temperature Source Temporal Artery Scan Pulse Rate [Pulse Oximeter 91 Right] Pulse Rate 88 Respiratory Rate 16 Blood Pressure [Right Arm] 123/66 Blood Pressure [Left Arm] 157/98 Blood Pressure 145/89 Pulse Ox 97 Oxygen Flow Rate 2 Oxygen Delivery Method Nasal Cannula Height 5 ft Weight 104 lb - General General Appearance: No Acute Distress, Cooperative, Thin - Head Head Exam: Normocephalic, Atraumatic Additional Head Exam Details: scabs on left upper forehead - Eye Eye Exam: POSITIVE: No Scleral Icterus - ENT ENT Exam: POSITIVE: Mucous Membranes Moist - Neck Neck Exam: Normal Inspection, No Tenderness, No Lymphadenopathy, No Thyromegaly, JVP is not Raised - Respiratory Respiratory Exam: POSITIVE: Clear to Auscultation - Bilaterally, Breathing Non Labored - Cardiovascular Cardiovascular Exam: POSITIVE: RRR, No Murmur, No Clicks, No Gallops, No Rubs, No JVD - GI/Abdominal GI/Abdominal Exam: POSITIVE: Normal Bowel Sounds, Non Distended, Soft Additional GI/Abdominal Exam Details: right abdominal pain tenderness - Rectal Rectal Exam: POSITIVE: Deferred - External Exam: POSITIVE: Deferred Exam: POSITIVE: Montes De Oca Catheter in Place (urine is clear in catheter) - Extremities Extremities Exam: POSITIVE: No Clubbing Present, No Edema Present, No Cyanosis Present - Back Back Exam: POSITIVE: No CVA Tenderness - Neurological Neurological Exam: POSITIVE: Alert, No Facial Droop, Speech Intact / Clear, Moves All Extremities Equally, Altered (oriented to person only) Results - Labs CBC and BMP: 06/14/18 12:01 06/14/18 09:00 Additional Lab Results: Laboratory Results 06/14/18 06/14/18 06/14/18 09:00 09:00 09:00 WBC 8.95 RBC 4.01 L Hgb 12.9 Hct 36.3 L MCV 90.5 MCH 32.2 H MCHC 35.5 RDW Std Deviation 43.1 RDW Coeff of Christy 13.3 Plt Count 93 L MPV 9.8 Immature Gran % (Auto) 0.3 Neut % (Auto) 83.1 H Lymph % (Auto) 9.9 L Dukes % (Auto) 6.6 Eos % (Auto) 0 Baso % (Auto) 0.1 Immature Gran # (Auto) 0.03 Neut # (Auto) 7.43 Lymph # (Auto) 0.89 Dukes # (Auto) 0.59 Eos # (Auto) 0 Baso # (Auto) 0.01 WBC Morphology Comment Normal morphology Plt Morphology Comment Normal morphology RBC Morph Comment Normal morphology PT 10.7 INR 1.05 Sodium 137 Potassium 4.2 Chloride 101 Carbon Dioxide 26 Anion Gap 10 BUN 21 Creatinine 0.5 BUN/Creatinine Ratio 42.00 H Glucose 171 H Calculated Osmolality 290.0 Calcium 9.7 Magnesium 2.0 Total Bilirubin 0.8 AST 40 H ALT 18 Alkaline Phosphatase 88 Total Creatine Kinase Troponin I C-Reactive Protein 1.7 H Total Protein 6.9 Albumin 4.0 Globulin 2.9 Albumin/Globulin Ratio 1.30 TSH Ur Collection Type Urine Color Urine Clarity Urine pH Ur Specific [place] Urine Protein Urine Glucose (UA) Urine Ketones Urine Occult Blood Urine Nitrate Urine Bilirubin Urine Urobilinogen Ur Leukocyte Esterase Urine RBC Urine WBC Ur Squamous Epith Cells Ur Renal Epithelial Cell Urine Crystals Urine Bacteria Urine Casts Urine Mucus Urine Trichomonas Urine Yeast Ur Culture Indicated? Blood Type Antibody Screen Crossmatch 06/14/18 06/14/18 06/14/18 09:00 09:00 09:00 WBC RBC Hgb Hct MCV MCH MCHC RDW Std Deviation RDW Coeff of Christy Plt Count MPV Immature Gran % (Auto) Neut % (Auto) Lymph % (Auto) Dukes % (Auto) Eos % (Auto) Baso % (Auto) Immature Gran # (Auto) Neut # (Auto) Lymph # (Auto) Dukes # (Auto) Eos # (Auto) Baso # (Auto) WBC Morphology Comment Plt Morphology Comment RBC Morph Comment PT INR Sodium Potassium Chloride Carbon Dioxide Anion Gap BUN Creatinine BUN/Creatinine Ratio Glucose Calculated Osmolality Calcium Magnesium Total Bilirubin AST ALT Alkaline Phosphatase Total Creatine Kinase 141 H Troponin I < 0.012 C-Reactive Protein Total Protein Albumin Globulin Albumin/Globulin Ratio TSH 1.91 Ur Collection Type Urine Color Urine Clarity Urine pH Ur Specific [place] Urine Protein Urine Glucose (UA) Urine Ketones Urine Occult Blood Urine Nitrate Urine Bilirubin Urine Urobilinogen Ur Leukocyte Esterase Urine RBC Urine WBC Ur Squamous Epith Cells Ur Renal Epithelial Cell Urine Crystals Urine Bacteria Urine Casts Urine Mucus Urine Trichomonas Urine Yeast Ur Culture Indicated? Blood Type Antibody Screen Crossmatch 06/14/18 06/14/18 06/14/18 09:42 11:15 12:01 WBC 7.56 RBC 3.51 L Hgb 10.8 L Hct 31.8 L MCV 90.6 MCH 30.8 MCHC 34.0 RDW Std Deviation 42.3 RDW Coeff of Christy 13.2 Plt Count 101 L MPV 9.0 Immature Gran % (Auto) 0.3 Neut % (Auto) 75.7 Lymph % (Auto) 13.9 Dukes % (Auto) 10.1 Eos % (Auto) 0 Baso % (Auto) 0 Immature Gran # (Auto) 0.02 Neut # (Auto) 5.73 Lymph # (Auto) 1.05 Dukes # (Auto) 0.76 Eos # (Auto) 0 Baso # (Auto) 0 WBC Morphology Comment Normal morphology Plt Morphology Comment Normal morphology RBC Morph Comment Normal morphology PT INR Sodium Potassium Chloride Carbon Dioxide Anion Gap BUN Creatinine BUN/Creatinine Ratio Glucose Calculated Osmolality Calcium Magnesium Total Bilirubin AST ALT Alkaline Phosphatase Total Creatine Kinase Troponin I C-Reactive Protein Total Protein Albumin Globulin Albumin/Globulin Ratio TSH Ur Collection Type Cath specimen Urine Color Yellow Urine Clarity Slightly cloudy Urine pH 6.5 Ur Specific [place] 1.015 Urine Protein Trace Urine Glucose (UA) Negative Urine Ketones Negative Urine Occult Blood Negative Urine Nitrate Positive A Urine Bilirubin Negative Urine Urobilinogen 0.2 Ur Leukocyte Esterase Small Urine RBC 0-1 Urine WBC 10-20 Ur Squamous Epith Cells None Ur Renal Epithelial Cell None Urine Crystals None Urine Bacteria Rare Urine Casts None Urine Mucus Rare Urine Trichomonas None Urine Yeast None Ur Culture Indicated? Culture set Blood Type O POSITIVE Antibody Screen Negative Crossmatch See Detail - Imaging Status: Image Reviewed by Me (chest X-ray, negative on my view for pneumonia. pacemaker noted hip X-ray shows right sided pelvic ring fractures CT abdomen and pelvis shows bleed, I reviewed the radiology report as well.) Assessment and Plan - Patient Problems (1) Retroperitoneal hematoma Current Visit: Yes Status: Acute Code(s): K66.1 - Hemoperitoneum (2) Pubic ramus fracture Current Visit: Yes Status: Acute Code(s): S32.599A - Other specified fracture of unspecified pubis, initial encounter for closed fracture Qualifiers: Encounter type: initial encounter Fracture type: closed Laterality: right Qualified Code(s): S32.591A - Other specified fracture of right pubis, initial encounter for closed fracture (3) UTI (urinary tract infection) Current Visit: Yes Status: Acute Code(s): N39.0 - Urinary tract infection, site not specified Qualifiers: Urinary tract infection type: acute cystitis Hematuria presence: without hematuria Qualified Code(s): N30.00 - Acute cystitis without hematuria (4) Dementia Current Visit: Yes Status: Chronic Code(s): F03.90 - Unspecified dementia without behavioral disturbance Qualifiers: Dementia type: Alzheimer's disease Alzheimer's disease onset: late-onset Dementia behavioral disturbance: without behavioral disturbance Qualified Code(s): G30.1 - Alzheimer's disease with late onset; F02.80 - Dementia in other diseases classified elsewhere without behavioral disturbance - Assessment / Plan Additional Assessment/Plan Details: in discussion with the patient's daughter, the patient would not want invasive surgical or diagnostic procedures. The daughter directs me to evaluate and assess the retroperitoneal bleed, consider transfusion if necessary, and see if the bleeding will spontaneously stop. She understands the patient could go into circulatory shock and from too much blood loss. She asked me to treat the patient's pain and discomfort. If things become bleak in terms of outcome from this bleed, the patient's daughter told me she is prepared to even consider stopping medical care of problems in favor of treatment of primary symptoms of pain and discomfort only. check CBC around 1700 will order telemetry monitoring tylenol initially for pain, if not effective, will cautiously adding narcotics due to patient's very poor response to narcotics in the past. The patient is do not resusitate hold anti-HTN medications. plan discussed with daughter and the patient's daughter agrees.
[2018-06-14 16:49] LABS: BASOPHILS # (AUTO) 0 10*3/UL; BASOPHILS % (AUTO) 0 % (0-1); EOSINOPHILS # (AUTO) 0.02 10*3/UL; EOSINOPHILS % (AUTO) 0.3 % (0-8); Hematocrit [HCT] 27.8 % (37.0-47.0); Hemoglobin [HGB] 9.3 g/dL (12.0-16.0); MEAN CORPUSCULAR HEMOGLOBIN 30.9 PG (27-31); MEAN CORPUSCULAR HGB CONC 33.5 g/dL (33-37); MEAN CORPUSCULAR VOLUME 92.4 FL (81-99); MEAN PLATELET VOLUME 9.2 FL (7.4-12.2); MONOCYTES # (AUTO) 0.71 10*3/UL (0.3-0.8); MONOCYTES % (AUTO) 10.9 % (5-15); NEUTROPHILS # (AUTO) 4.65 10*3/UL; NEUTROPHILS % (AUTO) 71.7 % (50-80); RED BLOOD COUNT 3.01 10^6/uL (4.20-5.40)
[2018-06-14 16:51] LABS: PLATELET MORPHOLOGY COMMENT NORMAL MORPHOLOGY (NORM); RBC MORPHOLOGY COMMENT NORMAL MORPHOLOGY (NORM); WBC MORPHOLOGY COMMENT NORMAL MORPHOLOGY (NORM)
--- NOTE | 2018-06-14 17:25 | EKG ---
[address] [place] [address] Measurements Intervals [place] Rate: 94 P: 73 WV: 163 QRS: 53 QRSD: 92 T: 72 QT: 363 QTc: 415 Interpretive Statements SINUS RHYTHM WITH OCCASIONAL VENTRICULAR PREMATURE COMPLEXES Compared to ECG 07/04/2017 09:48:14 Ventricular premature complex(es) now present Electronically Signed On 06-16-18 11:16:06 MDT by Cade Montana MD [email or web address]
[2018-06-14] MEDS: ACETAMINOPHEN 325 MG TABLET PO PRN (18:35)
[2018-06-14 20:57] LABS: Hematocrit [HCT] 27.8 % (37.0-47.0); Hemoglobin [HGB] 9.4 g/dL (12.0-16.0); MEAN CORPUSCULAR HEMOGLOBIN 31.3 PG (27-31); MEAN CORPUSCULAR HGB CONC 33.8 g/dL (33-37); MEAN CORPUSCULAR VOLUME 92.7 FL (81-99); MEAN PLATELET VOLUME 9.2 FL (7.4-12.2)
[2018-06-15 04:48] LABS: BASOPHILS # (AUTO) 0.02 10*3/UL; BASOPHILS % (AUTO) 0.3 % (0-1); EOSINOPHILS % (AUTO) 1.5 % (0-8); Hemoglobin [HGB] 9.1 g/dL (12.0-16.0); LYMPHOCYTES # (AUTO) 1.57 10*3/uL; MEAN CORPUSCULAR HEMOGLOBIN 31.4 PG (27-31); MEAN CORPUSCULAR HGB CONC 33.7 g/dL (33-37); MEAN CORPUSCULAR VOLUME 93.1 FL (81-99); MONOCYTES # (AUTO) 0.65 10*3/UL (0.3-0.8); MONOCYTES % (AUTO) 9.5 % (5-15); NEUTROPHILS # (AUTO) 4.46 10*3/UL; NEUTROPHILS % (AUTO) 65.4 % (50-80)
[2018-06-15 04:49] LABS: PLATELET MORPHOLOGY COMMENT NORMAL MORPHOLOGY (NORM); RBC MORPHOLOGY COMMENT NORMAL MORPHOLOGY (NORM); WBC MORPHOLOGY COMMENT NORMAL MORPHOLOGY (NORM)
[2018-06-15 05:01] LABS: BLOOD UREA NITROGEN 22 mg/dL (7-22); BUN/CREATININE RATIO 31.42 (6-20)
[2018-06-15] MEDS: ACETAMINOPHEN 325 MG TABLET PO PRN (10:34)
[2018-06-15] MEDS: traMADol 50 MG TABLET PO PRN ×2 (11:40→21:13)
[2018-06-15] MEDS ORDERED: cefTRIAXone Inj 2 GM in Sodium Chloride 0.9% 100 ML IV SCH (12:00)
[2018-06-15] MEDS ORDERED: Sodium Chloride 0.9% 250 ML PRIMARY IV ONE (16:40)
[2018-06-15] MEDS ORDERED: Sodium Chloride 0.9% 0 ML ONE (16:45)
[2018-06-15] MEDS ORDERED: Sodium Chloride 0.9% 1,000 ML PRIMARY IV ONE ×2 (16:48→16:50)
--- NOTE | 2018-06-15 17:46 | PDOC(PROG) ---
Date of Service: 06/15/18 Time of Service: 17:43 Interval History: Patient seen, evaluated earlier. Seen again and discussed with daughter. Patient complains of right-sided abdominal pain today. Tylenol did decrease it, but not completely. No chest pain and no shortness of breath. History compromised somewhat by dementia. Spoke with the patient's daughter regarding blood counts and they were consisten tly in the 9 range last night and this morning. It may be that active bleeding has stopped? Objective : Data - Labs CBC and BMP: 06/15/18 04:19 06/15/18 04:19 Objective : Exam - General General Appearance: No Acute Distress, Cooperative Additional General Exam Details: Vital Signs (24 hrs) 06/14/18 18:31 06/14/18 19:00 06/14/18 23:00 Temperature 97.9 F Pulse Rate 87 86 Pulse Rate [Pulse Oximeter Right] 98 Respiratory Rate 20 Blood Pressure [Right Arm] 106/46 Pulse Ox 97 06/15/18 00:26 06/15/18 03:00 06/15/18 04:57 Temperature 99.0 F 98.4 F Pulse Rate 83 Pulse Rate [Pulse Oximeter Right] 88 86 Respiratory Rate 16 16 Blood Pressure [Right Arm] 124/56 130/60 Pulse Ox 91 99 06/15/18 06:48 06/15/18 06:57 06/15/18 07:00 Temperature 98 F Pulse Rate 83 Pulse Rate [Pulse Oximeter Right] 65 65 Respiratory Rate 18 18 Blood Pressure [Right Arm] 131/60 Pulse Ox 99 06/15/18 11:00 06/15/18 11:06 06/15/18 15:00 Temperature 98 F Pulse Rate 98 89 Pulse Rate [Pulse Oximeter Right] 106 H Respiratory Rate 18 Blood Pressure [Right Arm] 122/62 Pulse Ox 96 06/15/18 16:25 Temperature 97.8 F Pulse Rate Pulse Rate [Pulse Oximeter Right] 86 Respiratory Rate 18 Blood Pressure [Right Arm] 88/38 Pulse Ox 94 - Eye Eye Exam: No Scleral Icterus - ENT ENT Exam: Mucous Membranes Moist - Neck Neck Exam: JVP is not Raised - Respiratory Respiratory Exam: Clear to Auscultation - Bilaterally, Breathing Non Labored - Cardiovascular Cardiovascular Exam: RRR, No Murmur, No Clicks, No Gallops, No Rubs, No JVD - GI/Abdominal GI/Abdominal Exam: Normal Bowel Sounds, Non Distended, Soft Additional GI/Abdominal Exam Details: Tender in right mid and lower quadrants. - Extremities Extremities Exam: No Clubbing Present, No Edema Present, No Cyanosis Present - Neurological Neurological Exam: Alert, No Facial Droop, Speech Intact / Clear, Moves All Extremities Equally Assessment and Plan - Patient Problems (1) Retroperitoneal hematoma Current Visit: Yes Status: Acute Code(s): K66.1 - Hemoperitoneum (2) Pubic ramus fracture Current Visit: Yes Status: Acute Code(s): S32.599A - Other specified fracture of unspecified pubis, initial encounter for closed fracture Qualifiers: Encounter type: initial encounter Fracture type: closed Laterality: right Qualified Code(s): S32.591A - Other specified fracture of right pubis, initial encounter for closed fracture (3) UTI (urinary tract infection) Current Visit: Yes Status: Acute Code(s): N39.0 - Urinary tract infection, site not specified Qualifiers: Urinary tract infection type: acute cystitis Hematuria presence: without hematuria Qualified Code(s): N30.00 - Acute cystitis without hematuria (4) Dementia Current Visit: Yes Status: Chronic Code(s): F03.90 - Unspecified dementia without behavioral disturbance Qualifiers: Dementia type: Alzheimer's disease Alzheimer's disease onset: late-onset Dementia behavioral disturbance: without behavioral disturbance Qualified Code(s): G30.1 - Alzheimer's disease with late onset; F02.80 - Dementia in other diseases classified elsewhere without behavioral disturbance - Assessment / Plan Additional Assessment/Plan Details: I'll check another CBC in the morning. Order PT and OT. Really needs therapy to sort of direct therapeutic plan to determine disposition which is likely back to [facility]. We had a reading of 83 systolic, so I'll give small fluid bolus and see how the patient does. I'll discontinue Montes De Oca catheter. Add tramadol for pain. Might discuss films with orthopedics?
[2018-06-15 19:05] LABS: Hematocrit [HCT] 24.4 % (37.0-47.0); Hemoglobin [HGB] 7.9 g/dL (12.0-16.0); MEAN CORPUSCULAR HEMOGLOBIN 30.9 PG (27-31); MEAN CORPUSCULAR HGB CONC 32.4 g/dL (33-37); MEAN CORPUSCULAR VOLUME 95.3 FL (81-99); MEAN PLATELET VOLUME 9.3 FL (7.4-12.2); RED BLOOD COUNT 2.56 10^6/uL (4.20-5.40)
[2018-06-15] MEDS ORDERED: Sodium Chloride 0.9% 500 ML PRIMARY IV ONE (19:45)
[2018-06-15] MEDS ORDERED: ACETAMINOPHEN 325 MG TABLET PO ONE (19:45)
[2018-06-16 05:05] LABS: Hematocrit [HCT] 33.1 % (37.0-47.0); Hemoglobin [HGB] 10.9 g/dL (12.0-16.0); MEAN CORPUSCULAR HEMOGLOBIN 30.4 PG (27-31); MEAN CORPUSCULAR HGB CONC 32.9 g/dL (33-37); MEAN CORPUSCULAR VOLUME 92.5 FL (81-99); RED BLOOD COUNT 3.58 10^6/uL (4.20-5.40)
[2018-06-16] MEDS: traMADol 50 MG TABLET PO PRN ×2 (06:54→15:37)
--- NOTE | 2018-06-16 08:43 | CONSULT ---
Consult Note - Consult Consult Date: 06/16/18 Reason for Consult: Orthopedic Consult Requesting Physician: Dr. Alan Zee Primary Care Provider: Sarah Beth Wei MD - History of Present Illness History of Present Illness: Patient is an 87-year-old female with history of advanced dementia and other medical problems who was found on the floor and her apparently [facility] several days ago. She is brought to the emergency room and found to have a bleed into the pelvic floor him significantly comminuted superior ramus and the ramus fracture extending into the symphysis. I was also mention of a sacral fracture but very difficult to visualize on the abdominal CT which was done. We have this repeated for better visualization and characterization of the fracture. Patient complains of pain in the posterior right area over sacral and also anteriorly. This is over the symphysis and superior inferior ramus region. She denies any pain or discomfort elsewhere. Past Medical History Medical History: 1. Hypertension. 2. Diabetes. 3. Pacemaker. 4. Dementia, advanced. 5. Hyperlipidemia, on statin therapy. 6. Coronary artery disease. 7. Type II diabetes. 8. Diverticulosis. 9. Glaucoma Surgical History: 1. Appendectomy. 2. Repair abdominal aortic aneurysm. 3. History of breast biopsy. 4. Cardiac pacemaker insertion. 5. Status post hysterectomy Family History: Reviewed an Not Pertinent Pertinent Family History: There is dementia and heart disease in the family per the patient's daughter. Past Social History: Patient does not smoke or drink. She had 5 children, her daughter, present today, is her power of document review attorney. three children are in group homes due to mental retardation and the daughter is their guardian. The patient is at [facility]. Tobacco Use: Never Smoker In the Past 12 Months, Have Used or Abuse Any of the Following Substance: None Alcohol Use: None Medication / Allergies Home Medications: Home Medications Medication Instructions Recorded Confirmed Type Amlodipine Besylate 5 mg PO DAILY #90 tab 07/30/16 06/14/18 Rx Carvedilol 6.25 mg PO BID #180 tab 07/30/16 06/14/18 Rx Potassium Chloride [Klor-Con 10] 10 meq PO DAILY #90 tab 07/30/16 06/14/18 Rx Quinapril HCl 20 mg PO DAILY #90 tab 10/29/16 06/14/18 Rx Acetaminophen [Tylenol] 650 mg PO Q6H PRN tab 05/04/17 06/14/18 Rx diphenoxylate-atropine 2.5 1 tab PO QDAY PRN tab 12/09/17 06/14/18 History mg-0.025 mg tablet lactase 3,000 unit tablet 3,000 unit PO TID 12/09/17 06/14/18 History Ciclopirox/Urea/Camph/Men/Euc 1 applic TOPICAL WEEKLY 06/14/18 06/14/18 History [Ciclopirox 8% Treatment Kit] Allergies/Adverse Reactions: Allergies Allergy/AdvReac Type Severity Reaction Status Date / Time Penicillins Allergy Intermediate rash on Verified 06/16/18 06:45 legs aspirin Allergy VOMITING Verified 06/16/18 06:45 captopril AdvReac Intermediate diarrhea Verified 06/16/18 06:45 hydrochlorothiazide AdvReac Intermediate diarrhea Verified 06/16/18 06:45 indapamide AdvReac Intermediate feel Verified 06/16/18 06:45 terrible hydrocodone AdvReac NOT Verified 06/16/18 06:45 APPLICABLE Exam - - Exam: Examination shows that she has good use of her arms and movement as well as her head and neck. She is eating breakfast and moving quite actively with this movement of the left does not seem to produce any discomfort in the lower extremity on the left. Movement of the right produces discomfort in the groin region with palpation of the foot and ankle tibia knee femur no pain or discomfort. She complains of some discomfort with palpation of the SI joint region but none on the left but definitely on the right. I don't see any marked skin or soft tissue issues in these regions. With squeeze testing interestingly does not have any significant pain with squeeze of the pelvis. Radiographs which were obtained of the hip and pelvis show some rather advanced arthritic changes to the right and the left hip with a lot of overgrowth. Patient with the superior-inferior ramus fracture extending into the symphysis. Abdominal CT showed the anterior pelvic rim fractures on the right I had a lot of difficulty seeing anything of significance on the right sacral region as a radiologist had visualized. This showed a fair amount of blood in the pelvic floor region on the right. Laboratory Results 06/14/18 06/15/18 06/16/18 11:15 18:53 04:28 WBC 5.82 6.54 RBC 2.56 L 3.58 L Hgb 7.9 L 10.9 L Hct 24.4 L 33.1 L MCV 95.3 92.5 MCH 30.9 30.4 MCHC 32.4 L 32.9 L RDW Std Deviation 45.7 47.2 RDW Coeff of Christy 13.7 14.6 H Plt Count 81 L 85 L MPV 9.3 10.0 Blood Type O POSITIVE Antibody Screen Negative Crossmatch See Detail CT of the pelvis which was obtained shows the anterior superior-inferior ramus and symphysis on the right but also what I suspect is a compression fracture of the sacrum on the right may be a small amount of displacement of the hemipelvis superiorly. - Vitals Vital Signs: Vital Signs Temperature 99.1 F Temperature Source Temporal Artery Scan Pulse Rate [Pulse Oximeter 84 Right] Pulse Rate 96 Respiratory Rate 16 Blood Pressure [Right Arm] 144/69 Blood Pressure [Left Arm] 157/98 Blood Pressure 137/64 Pulse Ox 94 Oxygen Flow Rate 2 Oxygen Delivery Method Nasal Cannula Height 5 ft Weight 48.081 kg Results - Labs CBC and BMP: 06/16/18 04:28 06/15/18 04:19 Assessment and Plan - Assessment / Plan Additional Assessment/Plan Details: Impression: Right superior inferior ramus fracture and sacral compression fracture. Patient with significant bleeding into the pelvic floor region. Plan: With this fracture isn't the patient has to be protected with weightbearing I would say no more than toe touch to a wheelchair for mobilization for 6 weeks until we can start to get some healing then we may aggress from that standpoint based on our clinical exam and x-rays. Patient has advanced dementia and has power of document review attorney by her daughter who by history with the hospitalist does not wish any heroic care did not warrant transfer for reevaluation and [facility] with potential control of bleeding with embolization. Initially care was [facility] but where she is doing reasonably well and eating we will try to progress her with therapy accordingly but need to protect this very significant injury. Discussed with the hospitalist and therapy with limitations obviously with his bleeder think she needs to progress very slowly. We discussed the patient's current condition and clinical findings as it pertains to the current situation. Surgical versus nonsurgical options risks and benefits were discussed and reviewed. Options moving forward include but are not limited to continued choice to live with their current condition; evaluate their current condition further with imaging studies and/or diagnostic testing, etc.; treat problem/problems with surgical versus nonsurgical methods. The patient and family demonstrates a clear understanding of our discussion. All questions were answered. - Time/Visit Time Spent With Patient: 15-25 Minutes
[2018-06-16] MEDS: ACETAMINOPHEN 325 MG TABLET PO PRN (09:20)
--- NOTE | 2018-06-16 09:25 | PDOC(PROG) ---
Date of Service: 06/16/18 Time of Service: 09:25 Interval History: Subjective Patient was complaining from pain in the right lower pelvic area, pain is worse with movement. She denied other symptoms. Denied back pain. Denied shortness of breath. She fell at the half-way and was brought for evaluation and was found to have a sacral and pubic rami fractures. She did bleed into the retroperitoneal area and had blood transfusion. Objective : Data - Labs CBC and BMP: 06/16/18 04:28 06/15/18 04:19 Objective : Exam - General General Appearance: No Acute Distress, Cooperative - Head Head Exam: Normal Inspection - Eye Eye Exam: Normal Appearance - ENT ENT Exam: Normal Exam - Neck Neck Exam: Normal Inspection - Respiratory Respiratory Exam: Clear to Auscultation - Bilaterally - Cardiovascular Cardiovascular Exam: RRR - GI/Abdominal GI/Abdominal Exam: Normal Bowel Sounds, Non Distended, Soft, No Organomegaly Additional GI/Abdominal Exam Details: Minimal tenderness in the right lower quadrant area. - Rectal Rectal Exam: Deferred - External Exam: Deferred - Extremities Extremities Exam: Normal Inspection - Back Back Exam: Normal Inspection - Neurological Neurological Exam: Alert, CN II-XII Intact, No Facial Droop, Speech Intact / Clear, Moves All Extremities Equally Assessment and Plan - Patient Problems (1) Pubic ramus fracture Current Visit: Yes Status: Acute Comment: Conservative management, continue current pain medications. Code(s): S32.599A - Other specified fracture of unspecified pubis, initial encounter for closed fracture Qualifiers: Encounter type: initial encounter Fracture type: closed Laterality: right Qualified Code(s): S32.591A - Other specified fracture of right pubis, initial encounter for closed fracture (2) UTI (urinary tract infection) Current Visit: Yes Status: Acute Comment: The growth pointed to contaminant etiology for the abnormal UA. Code(s): N39.0 - Urinary tract infection, site not specified Qualifiers: Urinary tract infection type: acute cystitis Hematuria presence: without hematuria Qualified Code(s): N30.00 - Acute cystitis without hematuria (3) Retroperitoneal hematoma Current Visit: Yes Status: Acute Comment: Her hemoglobin is stable posttransfusion. I think will watch her another night in the hospital and repeat her labs in the morning. Code(s): K66.1 - Hemoperitoneum (4) Sacral fracture Current Visit: Yes Status: Acute Comment: Per my discussion with Dr. Price continue conservative management. Same pain medications. She is toe-touch only on the right. Code(s): S32.10XA - Unspecified fracture of sacrum, initial encounter for closed fracture (5) Hypertension Current Visit: No Status: Chronic Comment: Because of that episode of hypotension that she had yesterday blood pressure medication where withheld I think we'll continue holding her blood pressure medications. Code(s): I10 - Essential (primary) hypertension Qualifiers: Hypertension type: essential hypertension Qualified Code(s): I10 - Essential (primary) hypertension
--- NOTE | 2018-06-16 09:42 | DI ---
CT Pelvis WO Contrast,06/16/2018 7:00 AM: Clinical History: Pelvic fracture. Previous Exam: June 14, 2018 Findings: Multiple helically acquired CT images are obtained through the pelvis without contrast, and demonstra claire diffuse osteopenia. There are slightly comminuted fractures involving the superior pubic ramus ne ar the symphysis pubis on the right as well is a slightly comminuted fracture involving the right inf erior pubic ramus. Degenerative changes of the hips and sacroiliac joints is noted. There is some layering stones within the gallbladder. There is a Montes De Oca catheter seen with the tip in good position. There is mild diffuse edema involving the surrounding subcutaneous fat. There are degenerative changes of the lower lumbar spine worst at the L5/S1 level. Impression: Slightly comminuted fracture of the right superior pubic ramus near the symphysis pubis and the infer ior pubic ramus in the midportion. Diffuse surrounding pelvic edema. Cholelithiasis.
[2018-06-17 00:15] VITALS: RESP 16
[2018-06-17] MEDS: traMADol 50 MG TABLET PO PRN ×2 (01:29→08:18)
[2018-06-17] MEDS: ACETAMINOPHEN 325 MG TABLET PO PRN ×2 (01:29→12:39)
[2018-06-17 04:47] LABS: BASOPHILS # (AUTO) 0.01 10*3/UL; BASOPHILS % (AUTO) 0.2 % (0-1); EOSINOPHILS % (AUTO) 3.1 % (0-8); Hematocrit [HCT] 34.8 % (37.0-47.0); Hemoglobin [HGB] 11.3 g/dL (12.0-16.0); LYMPHOCYTES # (AUTO) 1.06 10*3/uL; MEAN CORPUSCULAR HEMOGLOBIN 30.6 PG (27-31); MEAN CORPUSCULAR HGB CONC 32.5 g/dL (33-37); MEAN CORPUSCULAR VOLUME 94.3 FL (81-99); MEAN PLATELET VOLUME 10.2 FL (7.4-12.2); MONOCYTES # (AUTO) 0.68 10*3/UL (0.3-0.8); MONOCYTES % (AUTO) 10.6 % (5-15); NEUTROPHILS # (AUTO) 4.44 10*3/UL; NEUTROPHILS % (AUTO) 69.1 % (50-80); RED BLOOD COUNT 3.69 10^6/uL (4.20-5.40)
[2018-06-17 05:01] LABS: PLATELET MORPHOLOGY COMMENT NORMAL MORPHOLOGY (NORM); RBC MORPHOLOGY COMMENT NORMAL MORPHOLOGY (NORM); WBC MORPHOLOGY COMMENT NORMAL MORPHOLOGY (NORM)
--- NOTE | 2018-06-17 09:36 | PTI REPORT ---
Thank you for the referral of Cassandra Mera. She was seen on 06/16/18 for an inpatient evaluation secondary to weakness and an unstable pelvic fracture. The patient has strict weight-bearing precautions on the right lower extremity to include non weight-bearing if possible. She is allowed to put her right foot down for balance. SUBJECTIVE: The patient is an 87-year-old female who had a fall over at the [facility]. The patient does have a history of dementia and is a poor historian. The patient states that she does not remember falling, she just knows that she was told that she did fall. She does complain of primarily back pain at this time and she is unable to specify a certain location, she just complains that her back hurts and she is unable to provide a number from 0-10 on the verbal analog scale (0=no pain, 10=worst pain). Per nursing report the patient has performed two stand pivot transfers to bedside commode, depending on which day and how well she is doing. The patient did undergo testing and imaging this morning which is where we came with our orders from Dr. Price with our strict weight-bearing precautions on the right lower extremity to include only touching down her right foot for balance if needed. The therapist did discuss these orders with Dr. Price and discussed the patient's cognition which will affect how well she is able to adhere to her weight-bearing precautions. Due to her unstable fracture we are going follow as close to non weight-bearing as possible. We did also discuss use of Mirian if necessary to get the patient in and out of bed. The patient is a resident at the [facility] and prior to her fall she was ambulating. Much more history from that is unknown due to the patient's cognition. PAST MEDICAL HISTORY: Past medical history can be found in the patient's medical record. OBJECTIVE FINDINGS: General observations: The patient was alert upon PT arrival. She did complain of pain primarily in her back. Initially when the therapist started the evaluation in the morning, the patient was unable to roll from one side to the other. She was able to perform ankle pumps and was able to move her arms up to 90 degrees in flexion and abduction. With attempting to roll to either side, the patient complained of pain and would whimper in pain, so we did just let her rest the rest of the morning and waited for her Tylenol medication to kick in. The therapist did discuss getting the patient on a turning schedule every two hours with the patient's nurse Tiny due to her increased risk of pressure sores and due to the fact that she already does have some sores on her backside per their report. We also did discuss the patient's weight-bearing precautions and asked for OT orders as well to help with our bed mobility and upper extremity strength. In the afternoon, the therapist did come back to finish the evaluation with our occupational therapist. The patient was doing better in the afternoon. Bed mobility: The patient was able to transfer from supine to sit and was able to sit edge of bed with assist of two. She did have decreased complaints of pain and did better when moving her whole lower extremity as one unit to get her to sit edge of bed. Initially when sitting edge of bed she was a little sore until she did sit there for a moment. She did require contact guard assist x1 for her seated edge of bed balance. At that time the therapist did set up the commode so that she could transfer to her left side. Transfers: The patient performed a modified stand pivot transfer onto the commode. The patient did well and did need max assist. She did follow the verbal cues while transferring. At this time OT took over for toileting activity. The therapist discussed with nursing staff about getting a commode where the arm can drop down to the side to make the transfer a little bit easier and to try to avoid standing on that lower extremity as much as possible so that we could just perform a pivot transfer over to the commode. We also discussed always transferring to the right side to decrease the risk of the patient stepping down on that right side with her fracture. ASSESSMENT: The patient has fair to poor rehab potential secondary to her age, past medical history, and her limitations with her fracture. Pain is a big limiting factor at this time. Problem List: Increased pain Weight-bearing precautions due to her fracture Patient is a high fall risk Patient is at risk of developing increased pressure sores due to her lack of mobility at this time Short-Term Goals: To be met by discharge from inpatient: Patient will be able to transfer from supine to seated edge of bed with assist of one. Patient will be able to roll in bed with min assist in order to reposition to decrease her risk for pressure sores. Patient will be able to transfer with a pivot transfer from bed to bedside commode going to her left with assist of one and safely. Long-Term Goals: To be met following discharge from inpatient: Patient will return back to the [facility]. At that time staff will be trained on how to properly transfer the patient with her weight-bearing precautions and pain and will continue to monitor her pressure sores. TREATMENT PLAN: Patient will be seen B.I.D during the week and one time per day over the weekend as an inpatient to address the above goals and objectives. INITIAL TREATMENT: Treatment today consisted of the initial evaluation. AUNDREA
--- NOTE | 2018-06-17 09:43 | DCSUMMARY ---
Hospitalization Summary Admit Date: 06/14/2018 Discharge Date: 06/17/18 Hospital Course: Discharge diagnoses 1. Comminuted fractures of the right superior and inferior pubic rami with extension of the superior pubic ramus fracture through the para symphyseal region. 2. Fracture through the right sacral wing adjacent to the right SI joint and this represent avulsion of the entire cortex of the right sacral wing adjacent to the SI joint. 3. Retroperitoneal pelvic hematomas 4. Anemia secondary to the bleeding status post 2 units of blood 5. Osteoporosis 6. History of hypertension 7. History of pacemaker 8. History of dementia 9. History of coronary artery disease 10. History of abdominal aortic aneurysm repair Hospital course This is an 87 years old female with medical history significant for history of dementia, hypertension, coronary artery disease who was found on the day of admission laying down by her bed. She was sent to the ER evaluation revealed right sacral fracture right superior and inferior pelvic rami fractures. There was also evidence of hematoma in the retroperitoneum with estimated blood loss of 500-750 blood. The patient herself did not recall the event. She was admitted to the hospital by Dr. Zee please see his note. They decided on conservative management only. Her hemoglobin dropped so she received 2 units of blood. Also her blood pressure medication where withheld. A UA was abnormal so she was started initially on antibiotic but were discontinued as it was believed to be a contaminant. I saw the patient later on during her hospital stay, we did consult Dr. Price who recommended toe-touch bearing only on the right because of u nstable pelvis. We watch her to make sure that her hemoglobin remained stable posttransfusion. It did remain stable. Her pain was controlled with the Tylenol and tramadol. We thought that since her hemoglobin is stable we can send her back to the correction. We did keep the catheter for now. This can be looked at later on once her pain is less and see if this can be pulled out. Regarding her blood pressure medication we discontinued those because of hypotension that she had when she came in because of the bleeding. On discharge I wrote if blood pressure is more than 160 systoic or more than 90 diastolic then they can restart the amlodipine. I think if her blood pressure remained high they can reintroduce the Coreg then the quinapril one at a time to make sure blood pressure tolerates reintroduction of the medications. Discharge instruction Discharge instruction Diet regular Activity toe-touch weightbearing on the right Medications Current Medication(s) Home Medications Amlodipine Besylate 5 mg PO DAILY, can be restarted his blood pressure more than 160 systolic or more than 90 diastolic. Tylenol 650 every 6 when necessary pain Potassium Chloride [Klor-Con 10] 10 meq PO DAILY #90 tab 07/30/16 [Rx Confirmed 06/14/18] Tramadol 50 mg by mouth every 8 hours when necessary for pain Acetaminophen [Tylenol] 650 mg PO Q6H PRN tab 05/04/17 [Rx Confirmed 06/14/18] diphenoxylate-atropine 2.5 mg-0.025 mg tablet 1 tab PO QDAY PRN tab 12/09/17 [History Confirmed 06/14/18] lactase 3,000 unit tablet 3,000 unit PO TID 12/09/17 [History Confirmed ] Ciclopirox/Urea/Camph/Men/Euc [Ciclopirox 8% Treatment Kit] 1 applic TOPICAL WEEKLY 06/14/18 [History Confirmed 06/14/18] Ibuprofen 1 tab PO Q4-6H PRN 06/16/18 [History Confirmed 06/16/18] Latanoprost/Pf [Latanoprost 0.005% Eye Drop] 1 drp EACH EYE DAILY 06/16/18 [History Confirmed 06/16/18] Condition at discharge was stable for discharge Follow-up with Dr. Price to 3 weeks Exam - Vitals Vital Signs: Vital Signs Temperature 97.5 F Temperature Source Temporal Artery Scan Pulse Rate [Pulse Oximeter 85 Right] Pulse Rate 88 Respiratory Rate 16 Blood Pressure [Right Arm] 148/71 Blood Pressure [Left Arm] 157/98 Blood Pressure 137/64 Pulse Ox 90 Oxygen Flow Rate 2 Oxygen Delivery Method Nasal Cannula Height 5 ft Weight 109 lb 3.2 oz - General General Appearance: No Acute Distress - Head Head Exam: Normal Inspection - Eye Eye Exam: POSITIVE: Normal Appearance - ENT ENT Exam: POSITIVE: Normal Exam - Neck Neck Exam: Normal Inspection - Respiratory Respiratory Exam: POSITIVE: Clear to Auscultation - Bilaterally - Cardiovascular Cardiovascular Exam: POSITIVE: RRR - GI/Abdominal GI/Abdominal Exam: POSITIVE: Normal Bowel Sounds, Non Tender, Non Distended, Soft, No Organomegaly - Rectal Rectal Exam: POSITIVE: Deferred - External Exam: POSITIVE: Deferred Exam: POSITIVE: Deferred - Extremities Extremities Exam: POSITIVE: Normal Inspection - Neurological Neurological Exam: POSITIVE: Alert, CN II-XII Intact, No Facial Droop, Speech Intact / Clear, Moves All Extremities Equally - Psychiatric Psychiatric Exam: POSITIVE: Normal Affect - Integumentary Integumentary Exam: POSITIVE: Normal Color Patient Problems - Patient Problem List (1) Pubic ramus fracture Status: Acute Code(s): S32.599A - Other specified fracture of unspecified pubis, initial encounter for closed fracture Qualifiers: Encounter type: initial encounter Fracture type: closed Laterality: right Qualified Code(s): S32.591A - Other specified fracture of right pubis, initial encounter for closed fracture Category: Medical (2) UTI (urinary tract infection) Status: Acute Code(s): N39.0 - Urinary tract infection, site not specified Qualifiers: Urinary tract infection type: acute cystitis Hematuria presence: without hematuria Qualified Code(s): N30.00 - Acute cystitis without hematuria Category: Medical (3) Retroperitoneal hematoma Status: Acute Code(s): K66.1 - Hemoperitoneum Category: Medical (4) Sacral fracture Status: Acute Code(s): S32.10XA - Unspecified fracture of sacrum, initial encounter for closed fracture Category: Medical (5) Hypertension Status: Chronic Code(s): I10 - Essential (primary) hypertension Qualifiers: Hypertension type: essential hypertension Qualified Code(s): I10 - Essential (primary) hypertension Category: Medical
--- NOTE | 2018-06-17 10:44 | OTI REPORT ---
Thank you for the referral of Cassandra Mera. She was seen on 06/16/18 for an occupational therapy inpatient evaluation secondary to weakness. SUBJECTIVE: The patient is an 87-year-old female who was previously living at the [facility] when she sustained a fall which resulted in a pubic rami fracture. The patient's current weight-bearing precautions are strict non weight-bearing, possibly toe touch weight-bearing on the right side just for balance only. The patient does report that she is currently in a lot of pain. PAST MEDICAL HISTORY: Past medical history can be found in the patient's medical record. OBJECTIVE FINDINGS: General observations: The patient was not oriented to place, reason for hospitalization, or prior level of function. The patient has cognitive limitations. The patient does have skin breakdown/pressure ulcers starting on her sacral region. Nursing is aware of this. The patient is currently set up on a turning schedule to relieve pressure. Bed mobility: The patient required max assist x2 to move from supine to sitting edge of bed. The patient required max assist to reposition in bed to include rolling to one side to offload. Transfers: The patient completed a pivot transfer to the bedside commode with max assist x1. Activities of daily living: The patient required total assistance to complete toilet hygiene and to complete dressing tasks. ASSESSMENT: Problem List: Decreased upper extremity strength to assist with functional tasks Decreased ability to complete bed mobility Decreased ability to complete grooming Decreased ability to complete functional transfers Increased pain Occupational Therapy Goals: To be met by discharge from inpatient: Patient will increase bilateral upper extremity strength to assist with rolling laterally in bed and to assist with repositioning with use of the bed rails. Patient will complete seated or sitting propped up grooming tasks with step by step verbal directives. Patient will demonstrate the ability to roll laterally in bed with verbal cues to assist with repositioning and pressure relief. Patient will transfer from supine in bed to sitting edge of bed with mod assist x2 while following precautions. TREATMENT PLAN: Patient will be seen B.I.D during the week and one time per day over the weekend as an inpatient to address the above goals and objectives. INITIAL TREATMENT: Treatment today consisted of the occupational therapy initial evaluation only. AUNDREA
[2018-06-17 11:10] VITALS: BP 169/78; TEMP 97.7; O2SAT 92
--- NOTE | 2018-06-17 11:14 | PT.PROG ---
Progress Note Progress Note: S. Patient agreed to stand up to place a ROHO cushion under her. O. Patient performed sit to stand transfer x 2. Patient was left in her chair with alarm and call light. A. Patient tolerated transfer poor, she required mod assist x 2, she would continue to benefit from skilled therapy at the care center. P. Continue POC, until Discharge.
--- NOTE | 2018-06-17 11:29 | OT.PROG ---
Progress Note Progress Note: S: Pt. c/o high levels of pain on her right backside while sitting. O: Pt. participated in 15 min skilled OT to increase strength in UE for increase of independence for positioning and transferring. Pt. participated in B elbow extension x10 with yellow thera band. Pt. c/o pn. during B external rotation. Was only able to rotate to 10 degrees. Pt. c/o extreme pn. during shoulder flexion exercise. Pt. flexed shoulder to 40 degrees before having to stop due to pn. Pt. stated she was very tired and was falling in and out of sleep during session. Pt. was repositioned in the chair and left with tab and call light next to her. A: Increase in c/o pn. presents problems for positioning and transferring in dependently for pn. relief. Pt. ability to participate in B elbow extension demonstrates progress in UE strength for transferring and positioning self independently. Pt. willingness to participate in UE exercises shows potential for increase in UE strength. Pt. would benefit from skilled OT to increase strength in UE for increase in independence for positioning and transferring to decrease cubital ulcers. P: Pt. would benefit from skilled OT x2 until discharge to increase strength in UE for increase independence for positioning and transferring to decrease cubital ulcers.
== END 2018-06-17 13:50 | DRG 535 ==
LOC: ER 08:50 → MED/SURG 12:59
PROVIDERS: ADMIT Family Medicine; ATTEND Family Medicine